=== PATIENT | male | born 1950 | race Caucasian/White ===

== ENCOUNTER 2021-05-04 06:05 | Inpatient (IN) ==
--- NOTE | 2021-02-26 14:01 | PAT Medication Instructions ---
Medication Instructions Date of Service February 26, 2021 Home Medications acetaminophen 325 mg tablet (Tylenol) 650 mg PO TID atorvastatin 40 mg tablet (Lipitor) 40 mg PO QAM cevimeline 30 mg capsule 1 cap PO QAM citalopram 10 mg tablet 10 mg PO QAM gabapentin 800 mg tablet 800 mg PO TID levothyroxine 100 mcg capsule 100 mcg PO QAM methadone 10 mg tablet 10 mg PO BID nortriptyline 10 mg capsule 10 mg PO HS pantoprazole 40 mg tablet,delayed release 40 mg PO QAM ASK your prescriber and surgeon methadone 10 mg tablet 10 mg PO BID DO NOT take the morning of surgery cevimeline 30 mg capsule 1 cap PO QAM Take morning of surgery With a small sip of water, OTHERWISE NOTHING TO EAT OR DRINK AFTER MIDNIGHT: acetaminophen 325 mg tablet (Tylenol) 650 mg PO TID (okay to take up to 4 hours prior to surgery if needed) atorvastatin 40 mg tablet (Lipitor) 40 mg PO QAM citalopram 10 mg tablet 10 mg PO QAM gabapentin 800 mg tablet 800 mg PO TID levothyroxine 100 mcg capsule 100 mcg PO QAM pantoprazole 40 mg tablet,delayed release 40 mg PO QAM Take evening before surgery acetaminophen 325 mg tablet (Tylenol) 650 mg PO TID gabapentin 800 mg tablet 800 mg PO TID nortriptyline 10 mg capsule 10 mg PO HS Other Notes If you have any questions please call us at [phone] or [phone] or [phone] or [phone]
--- NOTE | 2021-03-04 13:26 | Anesthesiology Consultation ---
Date of Service March 04, 2021 Assessment & Plan (1) Encounter for pre-operative examination: Chart Review Chart Review: Acceptable Risk for Surgery (pending surgeon ordered PCP and cardio clearance and preop Covid testing results ) and Patient seen in Pre Admission Testing -Pending surgeon ordered PCP clearance and cardio clearance - Check BSG AM DOS (due to hyperglycemia) Per PAT appt on 03/04/21, patient denies any recent travel or large group activities. No known Covid positive exposures or Covid related symptoms. No known Covid infection in the past 90 days. Pt is partially vaccinated for Covid. Preop Covid testing scheduled 03/22/21= will await results. Educated on importance of self quarantining, social distancing and wearing mask in public for the patient one week prior to surgery and after Covid testing done History Surgery Operation Date: 03/24/21 07:45 Proposed Procedures p C5 Corpectomy Spinal Cord Monitoring - Jun Allen, Height/Weight Height: 5 ft 8 in Weight: 59.1 kg Allergies Allergy/AdvReac Type Severity Reaction Status Date / Time No Known Allergies Allergy Unverified 02/25/21 14:42 Medications Home Medications Medication Instructions Recorded Confirmed Last Taken acetaminophen 325 mg tablet 650 mg PO TID 10/28/20 02/25/21 Unknown (Tylenol) atorvastatin 40 mg tablet (Lipitor) 40 mg PO QAM 10/28/20 02/25/21 Unknown cevimeline 30 mg capsule 1 cap PO QAM 10/28/20 02/25/21 Unknown citalopram 10 mg tablet 10 mg PO QAM 10/28/20 02/25/21 Unknown gabapentin 800 mg tablet 800 mg PO TID 10/28/20 02/25/21 Unknown levothyroxine 100 mcg capsule 100 mcg PO QAM 10/28/20 02/25/21 Unknown methadone 10 mg tablet 10 mg PO BID 10/28/20 02/25/21 Unknown nortriptyline 10 mg capsule 10 mg PO HS 10/28/20 02/25/21 Unknown pantoprazole 40 mg tablet,delayed 40 mg PO QAM 10/28/20 02/25/21 Unknown release Past Medical History Medical History (Updated 03/05/21 @ 13:04 by Victoria Waldrop PA-C) Chronic pain Depression Dyslipidemia GERD (gastroesophageal reflux disease) Well controlled and stable Heart disease [place]- approx 15 years ago, total of 4 stents over time- most recent stent [address] 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 Decker in [place] Exercise / Class Metabolic Activity II 4-5 Yardwork/Stairs/Walk up hill (one flight of stairs - no chest pain or SOB) Past Surgical History Surgical History H/O hand surgery "L hand traumatic injury repair around 1995" Hx of cardiac cath heart attack 15 years, total of [address] Chaney [place] Hx of colonoscopy Past Anesthesia History No Hx of Anesthesia Complications and No Family Hx of Anesthesia Complications (with exception to mother- had TKA - poor historian with specifics but states mother was slow to wake, vomiting - states mother is "highly allergic to anesthesia"- pt has no personal issues - denies FH of MH or pseudocholinesterase deficiency) History of PONV No Hx of PONV and No Hx of Motion Sickness Social History Smoking Status: Never smoker Do You Dip or Chew Tobacco: No Hx Alcohol Use: No Hx Substance Use: No substance use type: does not use Review of Systems Hx of snoring- no hx of sleep study Hx of blood transfusion - anemia with mouth cancer in 2016 Patient denies chest pain, shortness of breath, dyspnea on exertion, cough, wheezing, palpitations. No hx of seizures, stroke. No hx of blood clots or blood transfusions Physical Exam Vital Signs VITALS BP 136/92 P 99 TEMP 98.5 SP02 97% RESP 16 Constitutional no acute distress ENMT Mouth: no TMJ clicking Thyromental Distance: > or= 3.5 Finger Breadths (3.5) Mallampati Class: II Full upper denture Missing most of on bottom Neck + limited neck extension (moderate to severe ) Respiratory normal respiratory effort; no respiratory distress Auscultation: lungs clear to auscultation bilaterally; no wheezes Cardiovascular Rate/Rhythm: regular rate and regular rhythm Heart Sounds: no murmur Vessels: no carotid bruit Musculoskeletal Spine: + kyphosis; no pain with cervical ROM Extremities: extremities normal to inspection Psychiatric Orientation: alert Lab Results Anesthesia Preop Results Results Anesthesia Widget: WBC 12.25 K/uL (4.8-10.8) H 03/04/21 Hgb 11.7 g/dL (14.0-18.0) L 03/04/21 Hct 36.2 % (42-52) L 03/04/21 Plt 406 K/uL (130-400) H 03/04/21 Na 134 mmol/L (136-145) L 03/04/21 K 4.1 mmol/L (3.5-5.1) 03/04/21 Cl 97 mmol/L (98-107) L 03/04/21 CO2 29 mmol/L (21-32) 03/04/21 BUN 8 mg/dl (6-23) 03/04/21 Creat 0.76 mg/dl (0.6-1.4) 03/04/21 Glucose Level 226 mg/dl (70-99(Fasting)) H 03/04/21 PT 10.8 Seconds (9.0-12.0) 03/04/21 PTT 28.8 Seconds (21.0-31.0) 03/04/21 INR 1.1 (0.9-1.1) 03/04/21 HA1c 5.0 % (4.5-5.6) 03/04/21 Blood Type O Positive 03/04/21 Antibody Screen NEGATIVE 03/04/21 Lab Comments: Surgeon's office informed of mild leukocytosis and anemia Anemia stable and mildly improved from 10/2020 Surgeon's office informed of elevated sugar - will send labs results to PCP for continuity of care Testing Electrocardiogram Date: 11/16/20 SR at 82bpm. No acute changes of ischemia. Chest X-Ray Date: 03/04/21 Findings: + NAD FINDINGS: PA and lateral chest radiographs are compared to study dated 11/04/2020. The cardiomediastinal silhouette is unremarkable noting atherosclerotic calcification of the thoracic aorta. A coronary artery stent is noted. Chronic interstitial thickening is similar to previous. There is mild bibasilar scarring/atelectasis. The lungs and pleural spaces are otherwise clear. There is no pneumothorax. The skeletal structures are osteopenic. There is chronic posttraumatic deformity of the sternum. Thoracic compression deformities are unchanged. There is hyperkyphosis of the thoracic spine. A linear metallic foreign body is again seen below the left hemidiaphragm.
[~2021-05-04 06:05] MED LIST: ACETAMINOPHEN 500 MG TAB PO SCH; CeleBREX 200 MG CAP PO SCH; GABAPENTIN 300 MG CAP PO SCH; LR 15ML/HR IV SCH; ceFAZolin 1000MG 1,000 MG/7.5 ML SYR IV SCH
[2021-05-04] MEDS ORDERED: fentaNYL citrate 100 MCG/2 ML VIAL ONE ×2 (06:52→08:37)
[2021-05-04] MEDS ORDERED: MIDAZOLAM HCL 1 MG/ML 2ML VIAL ONE (06:52)
[2021-05-04] MEDS ORDERED: PROPOFOL IV EMULSION 10 MG/ML 20 ML VIAL IV ONE (07:00)
[2021-05-04] MEDS ORDERED: LIDOCAINE 2% 2 ML VIAL/AMP(20MG/ML) INFIL ONE (07:00)
[2021-05-04] MEDS ORDERED: SUCCINYLCHOLINE 100MG/5ML SYR IV ONE (07:00)
[2021-05-04] MEDS ORDERED: ROCURONIUM BROMIDE 10 MG/ML 5 ML VIAL IV ONE (07:01)
[2021-05-04] MEDS ORDERED: DEXAMETHASONE SOD INJ 4 MG/ML VIAL ONE (07:01)
[2021-05-04] MEDS ORDERED: ONDANSETRON INJ 2 MG/ML 2 ML VIAL ONE (07:01)
[2021-05-04 07:03] LABS: Basophils # (auto) 0.09 K/uL (0-0.2); Basophils % (auto) 0.8 %; Eosinophils # (auto) 0.11 K/uL (0-0.5); Hematocrit (blood only) 33.1 % (42-52); Hemoglobin 10.8 g/dL (14.0-18.0); Immature Granulocytes # (auto) 0.19 K/uL (0.00-0.02); Immature Granulocytes % (auto) 1.7 %; Lymphocytes # (auto) 1.23 K/uL (1.2-3.4); Lymphocytes % (auto) 11.1 %; Mean Corpuscular Volume 104.1 fL (80-100); Mean Platelet Volume 9.5 fL (7.4-10.4); Neutrophils # (auto) 8.47 K/uL (1.4-6.5); Neutrophils % (auto) 76.4 %; Platelet Count 540 K/uL (130-400); RDW Coefficient of Variation 18.3 % (11.5-14.5); Red Blood Count 3.18 M/uL (4.7-6.1); White Blood Count 11.09 K/uL (4.8-10.8)
[2021-05-04] MEDS ORDERED: ceFAZolin 330 MG/ML 1 GM VIAL ONE (07:06)
[2021-05-04 07:13] LABS: Mean Corpuscular Hgb Conc 32.6 g/dL (32-36)
[2021-05-04 07:21] LABS: BUN Creatinine Ratio 8.4 (10-20); Calcium 8.7 mg/dl (8.5-10.1); Creatinine Clr Calc Pharmacy 45.3 ml/min; Est GFR (African American) 70.8 ml/min; Est GFR (Non-African American) 61.1 ml/min; Potassium 4.4 mmol/L (3.5-5.1)
--- NOTE | 2021-05-04 07:35 | History & Physical Bridge Note ---
Date of Service May 04, 2021 History & Physical Bridge Note I have examined the patient, reviewed the History & Physical and in the interval since the performance of the History & Physical I have noted the following changes of clinical significance: no changes noted
--- NOTE | 2021-05-04 07:36 | History & Physical Report ---
Date of Service May 04, 2021 Assessment & Plan (1) Myelopathy concurrent with and due to spinal stenosis of cervical region: Plan: C5 corpectomy History of Present Illness Chief Complaint: Neck and bilateral arm pain Primary Care Provider: Los Sheehan This is a 70-year-old male who presents with worsening neck and arm symptoms after failed course of nonoperative care is here for surgical invention. Allergies Allergy/AdvReac Type Severity Reaction Status Date / Time No Known Allergies Allergy Verified 05/04/21 06:28 Home Medications Medication Instructions Recorded Confirmed Type acetaminophen 325 mg tablet 650 mg PO TID 10/28/20 05/04/21 History (Tylenol) atorvastatin 40 mg tablet (Lipitor) 40 mg PO QAM 10/28/20 05/04/21 History cevimeline 30 mg capsule (Evoxac) 1 cap PO QAM 10/28/20 05/04/21 History citalopram 10 mg tablet (Celexa) 10 mg PO QAM 10/28/20 05/04/21 History gabapentin 800 mg tablet 800 mg PO TID 10/28/20 05/04/21 History levothyroxine 100 mcg capsule 100 mcg PO QAM 10/28/20 05/04/21 History methadone 10 mg tablet 10 mg PO BID 10/28/20 05/04/21 History nortriptyline 10 mg capsule 10 mg PO HS 10/28/20 05/04/21 History (Pamelor) pantoprazole 40 mg tablet,delayed 40 mg PO QAM 10/28/20 05/04/21 History release (Protonix) Past Med/Surg History Medical History (Updated 05/04/21 @ 07:36 by Jun Allen DO) Anemia CAD (coronary artery disease) 2010- [facility] showed patent LAD and LCX stents, mild RCA disease per cardio records [place]- approx 15 years ago, total of 4 stents over time- most recent stent [address] 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 Decker in [place] Surgical History H/O hand surgery "L hand traumatic injury repair around 1995" Hx of cardiac cath heart attack 15 years, total of [address] 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
[2021-05-04] MEDS ORDERED: ePHEDrine sulfate 50 MG/ML AMP IV PRN (08:11)
[2021-05-04] MEDS ORDERED: ATROPINE SULFATE 0.1 MG/ML 10ML SYR IV PRN (08:11)
[2021-05-04] MEDS ORDERED: ONDANSETRON INJ 2 MG/ML 2 ML VIAL IV PRN ×2 (08:11→12:06)
[2021-05-04] MEDS ORDERED: ePHEDrine sulfate 50 MG/ML SYR ONE (08:17)
[2021-05-04] MEDS ORDERED: NEOSTIGMINE METHYLSULFATE 1 MG/ML 10ML VIAL ONE (08:37)
[2021-05-04] MEDS ORDERED: GLYCOPYRROLATE 0.2 MG/ML VIAL ONE (08:37)
--- NOTE | 2021-05-04 09:11 | Operative Report ---
Post Operative Report Pre & Post Diagnosis Operation Date: 04/08/21 07:45 <No data on this case meets the specified criteria> Operation Date: 05/04/21 07:45 Pre-Op Diagnosis: Myelopathy concurrent with and due to spinal stenosis of cervical region Post-Op Diagnosis: Myelopathy concurrent with and due to spinal stenosis of cervical region I identified the patient and participated in the time-out.: Yes Procedure Operation Date: 04/08/21 07:45 <No data on this case meets the specified criteria> Operation Date: 05/04/21 07:45 Actual Procedures #1 anterior cervical discectomy with bilateral foraminotomies C4-C5. #2 anterior cervical arthrodesis C4-C5. #3 placement of Spira 6 mm cage filled I factor C4-C5. #4 application of mendoza plate and screws across C4-C5. Surgeon Jun Allen, Pulmonology Technician Donna Ho Estimated Blood Loss 10 Findings Consistent with Post-Op Diagnosis Specimens None Indications This is a 70-year-old male who presents with cervical myeloradiculopathy. Failing course of nonoperative care is here for surgical invention. Description of Procedure Patient was met with identified informed consent obtained. Patient was then taken to the operative suite underwent a patient placed in supine position injectable head Alexandra joseph. All bony prominences well-padded eyes inspected to ensure no external pressure placed upon the. This point the anterior cervical spine was prepped and draped in a sterile fashion. The assistance of fluoroscopy identified the C5 vertebral body and a transverse incision was placed along the right anterior aspect of the cervical spine overlying his region. Blunt dissection was carried out down to and exposing anterior cervical spine from C3-4 to see 6. Of note to the angle to obtain adequate and safe approach to the C5-6 disc was severe. Patient is anatomy is such that his clavicle would interrupt a direct approach to this level. Subsequently elected to not address the C5-6 disc space. It demonstrates evidence of stability and autofusion on film. Subsequently I addressed only the C4-5 disc space. A complete discectomy was performed out to the uncovertebral's bilaterally. [place] distractor pins were used to assist in visualization. Removed all posterior fibers longitudinal ligament bilateral foraminotomies performed. The endplates were then burred to subcortically bone and 6 mm spiral cage filled with I factor tapped in position. Distracting apparatus was removed and a 5 complete and screws applied with the assistance of fluoroscopy. The incision was then copiously irrigated explored to ensure no damage to surrounding structures remaining bleeding. 10 round LUZ drain inserted. The incision was then closed with 2 Vicryl in a fashion of 4 Monocryl for final skin closure. Steri-Strips dressings placed. Patient will continue PACU stable condition. Please note spinal cord monitoring visualized at the procedure no changes noted. Lastly Donna Ho was present out the entire surgery involved in patient positioning complex portions of the surgery and final skin closure. I attest to the content of the Intraoperative Record and any orders documented therein. Any exceptions are noted below.
[2021-05-04] MEDS ORDERED: FLOSEAL HEMOSTATIC MATRIX 10ML TOP ONE (09:13)
[2021-05-04] MEDS: fentaNYL citrate 100 MCG/2 ML VIAL IV PRN ×4 (09:48→10:10)
[2021-05-04] MEDS: HYDROmorphone INJ 1 MG/ML SYRINGE IV PRN ×5 (10:15→11:47)
--- NOTE | 2021-05-04 10:31 | Fluoroscopy Report ---
INTRAOPERATIVE RADIOGRAPHS CLINICAL HISTORY: Spinal fusion. Fluoroscopy time: 17 seconds. FINDINGS: 3 spot fluoroscopic views of the cervical spine are presented. There is evidence of anterio r fusion of the lower cervical spine. The levels are difficult to localize on the provided images. Th ere has reportedly been corpectomy at C5, and there is likely anterior fusion at C4-C6. The orthopedi c hardware appears intact. An endotracheal tube is in place. IMPRESSION: Intraoperative images from anterior fusion of the lower cervical spine as above. Electronically signed by: Drake Eid M.D. 05/04/2021 10:29 AM
--- NOTE | 2021-05-04 11:11 | Anesthesiology Progress Note ---
Date of Service May 04, 2021 Anesthesia Post Procedure Vital Signs Vital Signs: Temp Pulse Pulse Resp BP Pulse Ox 05/04/21 11:00 36.4 C L 87 18 131/78 97 05/04/21 10:50 86 16 131/85 98 05/04/21 10:40 88 18 128/87 98 05/04/21 10:30 89 16 140/87 98 05/04/21 10:20 87 16 149/95 H 99 05/04/21 10:10 90 16 163/98 H 94 05/04/21 10:00 88 16 158/97 H 95 05/04/21 09:50 90 20 144/101 H 95 05/04/21 09:40 88 16 164/87 H 100 05/04/21 09:30 89 16 163/95 H 100 05/04/21 09:24 36.2 C L 84 24 156/86 H 100 05/04/21 06:36 36.7 C 84 20 140/89 95 Pain Intensity Lower Back: Pain Intensity: 3 Neck: Pain Intensity: 4 Transfer of Care Handoff Completed per policy Notes Mental Status: alert / awake / arousable and participated in evaluation Patient Amnestic to Procedure: Yes Nausea / Vomiting: adequately controlled Pain: adequately controlled Airway Patency, RR, SpO2: stable & adequate BP & HR: stable & adequate Hydration State: stable & adequate Anesthetic Complications: no major complications apparent and Pt Satisfied with anesthetic care
[2021-05-04] MEDS ORDERED: oxyCODONE HCL IR 5 MG TAB (IMMEDIATE RELEASE) PO PRN (12:06)
[2021-05-04] MEDS ORDERED: NALOXONE HCL 0.4 MG/1 ML VIAL/CARP IV PRN (12:06)
[2021-05-04] MEDS ORDERED: diphenhydrAMINE Capsule 25 MG CAP PO PRN (12:06)
[2021-05-04] MEDS ORDERED: METOCLOPRAMIDE HCL INJ 5 MG/ML 2 ML VIAL IV PRN (12:06)
[2021-05-04] MEDS ORDERED: FAMOTIDINE 20 MG TAB PO PRN (12:06)
[2021-05-04] MEDS ORDERED: LORazepam 2 MG/1 ML VIAL IV PRN (12:06)
[2021-05-04] MEDS ORDERED: ONDANSETRON 4 MG OD TAB PO PRN (12:06)
[2021-05-04] MEDS ORDERED: SOD PHOSPHATE/SOD BIPHOSPHATE ENEMA 132 ML BTL PR PRN (12:06)
[2021-05-04] MEDS ORDERED: MAGNESIUM HYDROXIDE SUSP 30 ML UDC PO PRN (12:06)
[2021-05-04] MEDS ORDERED: dexAMETHasone 8 MG in SYRINGE 0 ML IV PRN (12:06)
[2021-05-04] MEDS ORDERED: LORazepam 0.5 MG TAB PO PRN (12:06)
[2021-05-04] MEDS ORDERED: PROMETHAZINE HCL 12.5 MG in SODIUM CHLORIDE 0.9% 50 ML IV PRN (12:06)
[2021-05-04] MEDS ORDERED: ACETAMINOPHEN 500 MG TAB PO PRN (12:06)
[2021-05-04] MEDS ORDERED: hydrOXYzine HCl 25 MG TAB PO PRN (12:06)
[2021-05-04] MEDS ORDERED: ALUMINUM/MAGNESIUM SUSP 30 ML UDC PO PRN (12:06)
[2021-05-04] MEDS ORDERED: bisacodyL 10 MG SUPP PR PRN (12:06)
[2021-05-04] MEDS ORDERED: ACETAMINOPHEN 1,000 MG/100 ML VIAL IV PRN (12:06)
[2021-05-04] MEDS ORDERED: HYDROmorphone INJ 0.5 MG/0.5 ML SYR IV PRN (12:06)
[2021-05-04] MEDS ORDERED: traMADol HCL 50 MG TABLET PO PRN (12:06)
[2021-05-04] MEDS ORDERED: HYDROmorphone INJ 1 MG/ML SYRINGE IV PRN (12:06)
[2021-05-04] MEDS ORDERED: DO NOT ADMINISTER PNEUMOCOCCAL VACCINE PRN (12:06)
[2021-05-04] MEDS ORDERED: RACEPINEPHRINE 2.25% NEBU SOLN 0.5 ML VIAL INH PRN (12:06)
[2021-05-04] MEDS ORDERED: DO NOT ADMINISTER FLU VACCINE PRN (12:06)
[2021-05-04] MEDS: GABAPENTIN 800 MG TAB PO SCH ×2 (13:34→20:39)
[2021-05-04] MEDS: LACTATED RINGER'S 1,000 ML IV SCH (16:32)
[2021-05-04] MEDS: ceFAZolin 1000MG 1,000 MG/7.5 ML SYR IV SCH (16:33)
[2021-05-04] MEDS: dexAMETHasone 6 MG in SYRINGE 0 ML IV SCH (16:33)
--- NOTE | 2021-05-04 16:54 | History & Physical Report ---
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 Allen. He tolerated the procedure well and denies any incisional discomfort or radicular symptoms. Postoperatively he is feeling good and sitting edge of bed. He denies any fever, chills, sweats, lightheadedness, dizziness, chest pain, shortness of breath, nausea, vomiting, abdominal pain. He denies any difficulty swallowing. He is urinating without difficulty. Patient follows with PCP Dr. Sheehan in [place], [place]. He recently followed up 2 weeks ago for preop evaluation. He states he did not make him aware of the 50 pound weight loss. He states he was at 170 pounds and now is in the 120s. He has a prior history of smoking for 55 years, and quit in 2016. Patient has history of CAD remotely with stent placement. He denies any chest pain or shortness of breath. Allergies Allergy/AdvReac Type Severity Reaction Status Date / Time No Known Allergies Allergy Verified 05/04/21 06:28 Home Medications Medication Instructions Recorded Confirmed Type acetaminophen 325 mg tablet 650 mg PO TID 10/28/20 05/04/21 History (Tylenol) atorvastatin 40 mg tablet (Lipitor) 40 mg PO QAM 10/28/20 05/04/21 History cevimeline 30 mg capsule (Evoxac) 1 cap PO QAM 10/28/20 05/04/21 History citalopram 10 mg tablet (Celexa) 10 mg PO QAM 10/28/20 05/04/21 History gabapentin 800 mg tablet 800 mg PO TID 10/28/20 05/04/21 History levothyroxine 100 mcg capsule 100 mcg PO QAM 10/28/20 05/04/21 History methadone 10 mg tablet 10 mg PO BID 10/28/20 05/04/21 History nortriptyline 10 mg capsule 10 mg PO HS 10/28/20 05/04/21 History (Pamelor) pantoprazole 40 mg tablet,delayed 40 mg PO QAM 10/28/20 05/04/21 History release (Protonix) Past Med/Surg History Medical History Anemia CAD (coronary artery disease) 2010- [facility] showed patent LAD and LCX stents, mild RCA disease per cardio records [place]- approx 15 years ago, total of 4 stents over time- most recent stent [address] 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 Ch[place] in [place] Hx of colonoscopy Family History (Updated 05/04/21 @ 16:35 by Cristal Kilpatrick PA-C) Mother Hypothyroidism Father Heart disease Social History Smoking Status: Former smoker Smoking End Date: 2015; Second Hand Exposure: No; Do You Dip or Chew Tobacco: No; Hx Alcohol Use: No (HX ALCOHOL USE - QUIT 2015) Hx Substance Use: No Preferred Language: Mongolian Communication Ability: Effective Client Services Representative Required: No Beliefs That Will Affect Care: None Current Living Situation: Alone Other Information That Helps Us Care for You: Yes (WANTS TO GO TO REHAB FOR A COUPLE WEEKS AFTER SURGERY, LIVES ALONE) Feels Safe at Home: Yes Safety Concerns: Feels Safe At This Time Assistive Devices: Cane and Glasses Review of Systems Review of Systems: All systems reviewed & are unremarkable except as noted in HPI & below Physical Exam Physical Exam: Constitutional: Frail, elderly, male, sitting at bedside, vitals as above, NAD, pleasant, conversing easily Head: Normocephalic, Atraumatic Eyes: PERRL, conjunctivae normal, anicteric sclerae ENMT: external ear and nose normal, oropharynx normal Neck: Cervical dressing in place, LUZ drain with minimal serosanguineous output, normal visual inspection Respiratory: normal respiratory effort, lungs clear to auscultation, no wheeze, rales, rhonchi. Normal insp/exp effort, no accessory muscle use Cardiovascular: RRR, no murmur, no edema Vessels: no JVD or carotid bruit Chest: Barrel chested Abdomen: normal bowel sounds, soft, nontender, no hepatosplenomegaly Musculoskeletal: no cyanosis or clubbing, extremities motor strength 5/5 Skin: no rashes, warm and dry normal turgor Neurologic: PERRL, EOMI, accommodation nl, no face palsy, no dysarthria CN's II-XI intact bilaterally and moves all extremities Psychiatric: A+Ox3, euthymic affect : deferred Results & Data Results & Data ([facility]) Vital Signs (Past 12 Hours) Vital Signs Temp Pulse Pulse Pulse Pulse Resp BP 05/04/21 16:25 36.7 C 87 16 164/65 H 05/04/21 16:00 83 16 05/04/21 15:55 36.4 C L 82 16 135/87 05/04/21 15:25 36.7 C 81 16 115/67 05/04/21 14:30 83 20 135/91 05/04/21 14:00 89 20 116/71 05/04/21 13:30 89 18 121/65 05/04/21 13:00 100 H 12 143/86 H 05/04/21 12:30 84 24 136/86 05/04/21 12:00 95 H 16 122/68 05/04/21 11:45 90 14 136/85 05/04/21 11:30 89 16 131/87 05/04/21 11:15 89 16 129/81 05/04/21 11:00 36.4 C L 87 18 131/78 05/04/21 10:50 86 16 131/85 05/04/21 10:40 88 18 128/87 05/04/21 10:30 89 16 140/87 05/04/21 10:20 87 16 149/95 H 05/04/21 10:10 90 16 163/98 H 05/04/21 10:00 88 16 158/97 H 05/04/21 09:50 90 20 144/101 H 05/04/21 09:40 88 16 164/87 H 05/04/21 09:30 89 16 163/95 H 05/04/21 09:24 36.2 C L 84 24 156/86 H 05/04/21 06:36 36.7 C 84 20 140/89 Pulse Ox 05/04/21 16:25 98 05/04/21 16:00 97 05/04/21 15:55 96 05/04/21 15:25 95 05/04/21 14:30 94 05/04/21 14:00 98 05/04/21 13:30 99 05/04/21 13:00 98 05/04/21 12:30 97 05/04/21 12:00 97 05/04/21 11:45 98 05/04/21 11:30 97 05/04/21 11:15 96 05/04/21 11:00 97 05/04/21 10:50 98 05/04/21 10:40 98 05/04/21 10:30 98 05/04/21 10:20 99 05/04/21 10:10 94 05/04/21 10:00 95 05/04/21 09:50 95 05/04/21 09:40 100 05/04/21 09:30 100 05/04/21 09:24 100 05/04/21 06:36 95 Laboratory Results 05/04/21 05/04/21 05/04/21 Range/Units Unknown 06:33 06:33 WBC 11.09 H (4.8-10.8) K/uL RBC 3.18 L (4.7-6.1) M/uL Hgb 10.8 L (14.0-18.0) g/dL Hct 33.1 L (42-52) % MCV 104.1 H (80-100) fL MCH 34.0 (25-34) pg MCHC 32.6 (32-36) g/dL RDW Std Deviation 69.0 H (36.4-46.3) fL RDW Coeff of Kaya 18.3 H (11.5-14.5) % Plt Count 540 H (130-400) K/uL MPV 9.5 (7.4-10.4) fL Immature Gran % (Auto) 1.7 % Neut % (Auto) 76.4 % Lymph % (Auto) 11.1 % Hoke % (Auto) 9.0 % Eos % (Auto) 1.0 % Baso % (Auto) 0.8 % Neut # (Auto) 8.47 H (1.4-6.5) K/uL Lymph # (Auto) 1.23 (1.2-3.4) K/uL Hoke # (Auto) 1.00 H (0.11-0.59) K/uL Eos # (Auto) 0.11 (0-0.5) K/uL Baso # (Auto) 0.09 (0-0.2) K/uL Immature Gran # (Auto) 0.19 H (0.00-0.02) K/uL Sodium 134 L (136-145) mmol/L Potassium 4.4 (3.5-5.1) mmol/L Chloride 100 (98-107) mmol/L Carbon Dioxide 28 (21-32) mmol/L Anion Gap 6 (3-11) BUN 10 (6-23) mg/dl Creatinine 1.19 (0.6-1.4) mg/dl Est Cr Clr Drug Dosing 45.3 ml/min Est GFR ( Amer) 70.8 ml/min Est GFR (Non-Af Amer) 61.1 ml/min BUN/Creatinine Ratio 8.4 L (10-20) Glucose 79 (70-99(Fasting)) mg/dl POC Glucose (70-99) mg/dl Calcium 8.7 (8.5-10.1) mg/dl SARS-CoV-2, RNA, NAAT NEGATIVE (NEGATIVE) Blood Type Antibody Screen 05/04/21 05/04/21 Range/Units 06:33 06:25 WBC (4.8-10.8) K/uL RBC (4.7-6.1) M/uL Hgb (14.0-18.0) g/dL Hct (42-52) % MCV (80-100) fL MCH (25-34) pg MCHC (32-36) g/dL RDW Std Deviation (36.4-46.3) fL RDW Coeff of Kaya (11.5-14.5) % Plt Count (130-400) K/uL MPV (7.4-10.4) fL Immature Gran % (Auto) % Neut % (Auto) % Lymph % (Auto) % Hoke % (Auto) % Eos % (Auto) % Baso % (Auto) % Neut # (Auto) (1.4-6.5) K/uL Lymph # (Auto) (1.2-3.4) K/uL Hoke # (Auto) (0.11-0.59) K/uL Eos # (Auto) (0-0.5) K/uL Baso # (Auto) (0-0.2) K/uL Immature Gran # (Auto) (0.00-0.02) K/uL Sodium (136-145) mmol/L Potassium (3.5-5.1) mmol/L Chloride (98-107) mmol/L Carbon Dioxide (21-32) mmol/L Anion Gap (3-11) BUN (6-23) mg/dl Creatinine (0.6-1.4) mg/dl Est Cr Clr Drug Dosing ml/min Est GFR ( Amer) ml/min Est GFR (Non-Af Amer) ml/min BUN/Creatinine Ratio (10-20) Glucose (70-99(Fasting)) mg/dl POC Glucose 90 (70-99) mg/dl Calcium (8.5-10.1) mg/dl SARS-CoV-2, RNA, NAAT (NEGATIVE) Blood Type O Positive Antibody Screen NEGATIVE Diagnostic Findings Cervical Spine X-Ray 05/04/21 07:45 INTRAOPERATIVE RADIOGRAPHS CLINICAL HISTORY: Spinal fusion. Fluoroscopy time: 17 seconds. FINDINGS: 3 spot fluoroscopic views of the cervical spine are presented. There is evidence of anterior fusion of the lower cervical spine. The levels are difficult to localize on the provided images. There has reportedly been corpectomy at C5, and there is likely anterior fusion at C4-C6. The orthopedic h ardware appears intact. An endotracheal tube is in place. IMPRESSION: Intraoperative images from anterior fusion of the lower cervical spine as above. Electronically signed by: Drake Eid M.D. 05/04/2021 10:29 AM Medications Administered Medication List Acetaminophen (Acetaminophen 500 Mg Tab) 1,000 mg PO PREOP JUAN Stop: 05/04/21 18:00 Last Admin: 05/04/21 06:35 Dose: Not Given Documented by: [id number] Celecoxib (Celebrex 200 Mg Cap) 200 mg PO PREOP JUAN Stop: 05/04/21 18:00 Last Admin: 05/04/21 07:00 Dose: 200 mg Documented by: [id number] Gabapentin (Gabapentin 300 Mg Cap) 300 mg PO PREOP JUAN Stop: 05/04/21 18:00 Last Admin: 05/04/21 06:35 Dose: Not Given Documented by: [id number] Gabapentin (Gabapentin 800 Mg Tab) 800 mg PO TID JUAN Stop: 06/03/21 13:59 Last Admin: 05/04/21 13:34 Dose: 800 mg Documented by: [id number] Hydromorphone HCl (Hydromorphone Inj 1 Mg/Ml Syringe) 1 mg IV Q3H PRN PRN Reason: severe pain (scale 7-10) Stop: 05/18/21 12:05 Last Admin: 05/04/21 14:22 Dose: 1 mg Documented by: [id number] Lactated Ringer's (Lr) 1,000 mls @ 15 mls/hr IV .Q24H JUAN Stop: 05/05/21 05:59 Last Infusion: 05/04/21 07:50 Dose: 0 mls/hr Documented by: [id number] Admin: 05/04/21 06:55 Dose: 15 mls/hr Documented by: [id number] Cefazolin Sodium (Ancef 1000mg) 1,000 mg in 7.5 mls @ 2.5 mls/min IV PREOP JUAN; Protocol Stop: 05/04/21 18:00 Last Admin: 05/04/21 07:50 Dose: 2.5 mls/min Documented by: [id number] Lactated Ringer's (Lr) 1,000 mls @ 75 mls/hr IV .[id number] JUAN Stop: 06/03/21 12:05 Last Admin: 05/04/21 16:32 Dose: 75 mls/hr Documented by: [id number] Cefazolin Sodium (Ancef 1000mg) 1,000 mg in 7.5 mls @ 2.5 mls/min IV Q8H JUAN; Protocol Stop: 05/05/21 00:02 Last Admin: 05/04/21 16:33 Dose: 2.5 mls/min Documented by: [id number] Dexamethasone 6 mg/ Syringe 1.5 mls @ 1 mls/min IV Q8H JUAN Stop: 05/05/21 08:02 Last Admin: 05/04/21 16:33 Dose: 1 mls/min Documented by: [id number] Discontinued Medications Cefazolin Sodium (Cefazolin 330 Mg/Ml 1 Gm Vial) Confirm Administered Dose 990 mg .ROUTE .STK-MED ONE Stop: 05/04/21 07:07 Last Admin: 05/04/21 09:26 Dose: 990 mg Documented by: [id number] Fentanyl Citrate (Fentanyl Citrate 100 Mcg/2 Ml Vial) 25 mcg IV Q5M PRN PRN Reason: PACU Use Only-Pain Stop: 05/04/21 16:11 Last Admin: 05/04/21 10:10 Dose: 25 mcg Documented by: [id number] Admin: 05/04/21 09:59 Dose: 25 mcg Documented by: [id number] Admin: 05/04/21 09:54 Dose: 25 mcg Documented by: [id number] Admin: 05/04/21 09:48 Dose: 25 mcg Documented by: [id number] Hydromorphone HCl (Hydromorphone Inj 1 Mg/Ml Syringe) 0.25 mg IV Q5M PRN PRN Reason: PACU Use Only-Pain Stop: 05/04/21 16:11 Last Admin: 05/04/21 11:47 Dose: 0.25 mg Documented by: [id number] Admin: 05/04/21 10:35 Dose: 0.25 mg Documented by: [id number] Admin: 05/04/21 10:25 Dose: 0.25 mg Documented by: [id number] Admin: 05/04/21 10:20 Dose: 0.25 mg Documented by: [id number] Admin: 05/04/21 10:15 Dose: 0.25 mg Documented by: [id number] Miscellaneous ( Floseal Hemostatic Matrix 10ml) 10 ml TOP ONCE ONE Stop: 05/04/21 09:14 Last Admin: 05/04/21 09:14 Dose: 10 ml Documented by: [id number] Code Status & VTE Plan Code Status FULL CODE VTE Prophylaxis Plan VTE Prophylaxis will be ordered: Yes
--- NOTE | 2021-05-04 17:06 | Consultation ---
Date of Consultation May 04, 2021 Assessment & Plan (1) Myelopathy concurrent with and due to spinal stenosis of cervical region: (2) Heart disease: Myelopathy secondary to cervical spine stenosis Status post ACDF C4-C5 by Dr. 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 Sheehan in [place] FULL CODE Pt was seen and examined in collaboration with Dr. Mesa, please see addendum Thank you for this consultation. We will follow the patient with you during their hospital stay. You can reach a member of the [facility] Hospitalist Team 05/09 via hospitalist role on tiger text. Supervising Physician Co-Signing Physician Notes I have seen and examined the patient and have discussed the case with the provider above. I agree with the assessment and plan as stated. 70 yo M s/p cervical spine surgery today. Recovering well without nausea, and he is tolerating food here. He reports eating more than he typically does at home. He will follow-up with his PCP regarding recent weight loss. Physical exam with drain in anterior neck, lungs clear to ausculation and normal cardiac exam. Cont current medical therapy. DO Moshe History of Present Illness Requesting Physician: DR. Allen Reason for Consultation: Postop medical management Attending Physician: Jun Allen DO History of Present Illness This is a 70-year-old male who has significant past medical history of CAD, history of mouth cancer status post chemo and radiation, chronic pain, HTN, HLD, hypothyroidism, recent weight loss of 50 pounds in 3 months who presents for elective cervical procedure by Dr. Allen. He tolerated the procedure well and denies any incisional discomfort or radicular symptoms. Postoperatively he is feeling good and sitting edge of bed. He denies any fever, chills, sweats, lightheadedness, dizziness, chest pain, shortness of breath, nausea, vomiting, abdominal pain. He denies any difficulty swallowing. He is urinating without difficulty. Patient follows with PCP Dr. Sheehan in [place]. He recently followed up 2 weeks ago for preop evaluation. He states he did not make him aware of the 50 pound weight loss. He states he was at 170 pounds and now is in the 120s. He has a prior history of smoking for 55 years, and quit in 2016. Patient has history of CAD remotely with stent placement. He denies any chest pain or shortness of breath. Allergies Allergy/AdvReac Type Severity Reaction Status Date / Time No Known Allergies Allergy Verified 05/04/21 06:28 Home Medications Medication Instructions Recorded Confirmed Type acetaminophen 325 mg tablet 650 mg PO TID 10/28/20 05/04/21 History (Tylenol) atorvastatin 40 mg tablet (Lipitor) 40 mg PO QAM 10/28/20 05/04/21 History cevimeline 30 mg capsule (Evoxac) 1 cap PO QAM 10/28/20 05/04/21 History citalopram 10 mg tablet (Celexa) 10 mg PO QAM 10/28/20 05/04/21 History gabapentin 800 mg tablet 800 mg PO TID 10/28/20 05/04/21 History levothyroxine 100 mcg capsule 100 mcg PO QAM 10/28/20 05/04/21 History methadone 10 mg tablet 10 mg PO BID 10/28/20 05/04/21 History nortriptyline 10 mg capsule 10 mg PO HS 10/28/20 05/04/21 History (Pamelor) pantoprazole 40 mg tablet,delayed 40 mg PO QAM 10/28/20 05/04/21 History release (Protonix) aspirin 81 mg tablet,delayed 81 mg PO DAILY 05/04/21 05/04/21 History release Patient History Medical History Anemia CAD (coronary artery disease) 2010- [facility] showed patent LAD and LCX stents, mild RCA disease per cardio records [place]- approx 15 years ago, total of 4 stents over time- most recent stent [address] 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 Decker in [place] Surgical History H/O hand surgery "L hand traumatic injury repair around 1995" Hx of cardiac cath heart attack 15 years, total of [address] Chaney in [place] Hx of colonoscopy Family History (Updated 05/04/21 @ 16:35 by Cristal Kilpatrick PA-C) Mother Hypothyroidism Father Heart disease Social History Smoking Status: Former smoker Smoking End Date: 2015; Second Hand Exposure: No; Do You Dip or Chew Tobacco: No; Hx Alcohol Use: No (HX ALCOHOL USE - QUIT 2015) Hx Substance Use: No Preferred Language: Tajik Communication Ability: Effective Toll Patrolman Required: No Beliefs That Will Affect Care: None Current Living Situation: Alone Other Information That Helps Us Care for You: Yes (WANTS TO GO TO REHAB FOR A COUPLE WEEKS AFTER SURGERY, LIVES ALONE) Feels Safe at Home: Yes Safety Concerns: Feels Safe At This Time Assistive Devices: Cane and Glasses Review of Systems Review of Systems: All systems reviewed & are unremarkable except as noted in HPI & below Physical Exam Physical Exam: Constitutional: Frail, elderly, male, sitting at bedside, vitals as above, NAD, pleasant, conversing easily Head: Normocephalic, Atraumatic Eyes: PERRL, conjunctivae normal, anicteric sclerae ENMT: external ear and nose normal, oropharynx normal Neck: Cervical dressing in place, LUZ drain with minimal serosanguineous output, normal visual inspection Respiratory: normal respiratory effort, lungs clear to auscultation, no wheeze, rales, rhonchi. Normal insp/exp effort, no accessory muscle use Cardiovascular: RRR, no murmur, no edema Vessels: no JVD or carotid bruit Chest: Barrel chested Abdomen: normal bowel sounds, soft, nontender, no hepatosplenomegaly Musculoskeletal: no cyanosis or clubbing, extremities motor strength 5/5 Skin: no rashes, warm and dry normal turgor Neurologic: PERRL, EOMI, accommodation nl, no face palsy, no dysarthria CN's II-XI intact bilaterally and moves all extremities Psychiatric: A+Ox3, euthymic affect : deferred Results & Data ([facility]) Vital Signs (Past 12 Hours) Vital Signs Temp Pulse Pulse Pulse Pulse Resp BP 05/04/21 16:25 36.7 C 87 16 164/65 H 05/04/21 16:00 83 16 05/04/21 15:55 36.4 C L 82 16 135/87 05/04/21 15:25 36.7 C 81 16 115/67 05/04/21 14:30 83 20 135/91 05/04/21 14:00 89 20 116/71 05/04/21 13:30 89 18 121/65 05/04/21 13:00 100 H 12 143/86 H 05/04/21 12:30 84 24 136/86 05/04/21 12:00 95 H 16 122/68 05/04/21 11:45 90 14 136/85 05/04/21 11:30 89 16 131/87 05/04/21 11:15 89 16 129/81 05/04/21 11:00 36.4 C L 87 18 131/78 05/04/21 10:50 86 16 131/85 05/04/21 10:40 88 18 128/87 05/04/21 10:30 89 16 140/87 05/04/21 10:20 87 16 149/95 H 05/04/21 10:10 90 16 163/98 H 05/04/21 10:00 88 16 158/97 H 05/04/21 09:50 90 20 144/101 H 05/04/21 09:40 88 16 164/87 H 05/04/21 09:30 89 16 163/95 H 05/04/21 09:24 36.2 C L 84 24 156/86 H 05/04/21 06:36 36.7 C 84 20 140/89 Pulse Ox 05/04/21 16:25 98 05/04/21 16:00 97 05/04/21 15:55 96 05/04/21 15:25 95 05/04/21 14:30 94 05/04/21 14:00 98 05/04/21 13:30 99 05/04/21 13:00 98 05/04/21 12:30 97 05/04/21 12:00 97 05/04/21 11:45 98 05/04/21 11:30 97 05/04/21 11:15 96 05/04/21 11:00 97 05/04/21 10:50 98 05/04/21 10:40 98 05/04/21 10:30 98 05/04/21 10:20 99 05/04/21 10:10 94 05/04/21 10:00 95 05/04/21 09:50 95 05/04/21 09:40 100 05/04/21 09:30 100 05/04/21 09:24 100 05/04/21 06:36 95 Laboratory Results Short CBC 05/04/21 Range/Units 06:33 WBC 11.09 H (4.8-10.8) K/uL Hgb 10.8 L (14.0-18.0) g/dL Hct 33.1 L (42-52) % Plt Count 540 H (130-400) K/uL BMP 05/04/21 06:33 Sodium 134 L Potassium 4.4 Chloride 100 Carbon Dioxide 28 BUN 10 Creatinine 1.19 Glucose 79 Calcium 8.7 Diagnostic Findings Cervical Spine X-Ray 05/04/21 07:45 INTRAOPERATIVE RADIOGRAPHS CLINICAL HISTORY: Spinal fusion. Fluoroscopy time: 17 seconds. FINDINGS: 3 spot fluoroscopic views of the cervical spine are presented. There is evidence of anterior fusion of the lower cervical spine. The levels are difficult to localize on the provided images. There has reportedly been corpectomy at C5, and there is likely anterior fusion at C4-C6. The orthopedic hardware appears intact. An endotracheal tube is in place. IMPRESSION: Intraoperative images from anterior fusion of the lower cervical spine as above. Electronically signed by: Drake Eid M.D. 05/04/2021 10:29 AM Echocardiogram 03/16/2021 revealed LVEF mildly decreased systolic function with EF 40%, normal right ventricle, mild to moderate mitral regurg, mild tricuspid regurg, left atrium mildly enlarged, diastolic dysfunction grade 1 Medications Administered Current Inpatient Medications Acetaminophen (Acetaminophen 500 Mg Tab) 1,000 mg PO PREOP JUAN Stop: 05/04/21 18:00 Last Admin: 05/04/21 06:35 Dose: Not Given Documented by: Acetaminophen (Acetaminophen 500 Mg Tab) 1,000 mg PO Q8H PRN PRN Reason: MILD Pain Scale 1,2,3 & Pre PT Stop: 06/03/21 12:05 Al Hydrox/Mg Hydrox/Simethicone (Aluminum/Magnesium Susp 30 Ml Udc) 30 ml PO Q6H PRN PRN Reason: Dyspepsia Stop: 06/03/21 12:05 Atorvastatin Calcium (Atorvastatin 40 Mg Tab) 40 mg PO QAM [facility] Stop: 06/04/21 08:59 Bisacodyl (Bisacodyl 10 Mg Supp) 10 mg TN DAILY PRN PRN Reason: Constipation Stop: 06/03/21 12:05 Celecoxib (Celebrex 200 Mg Cap) 200 mg PO PREOP [facility] Stop: 05/04/21 18:00 Last Admin: 05/04/21 07:00 Dose: 200 mg Documented by: Citalopram Hydrobromide (Citalopram 20 Mg Tab) 10 mg PO QAM [facility] Stop: 06/04/21 08:59 Diphenhydramine HCl (Diphenhydramine Capsule 25 Mg Cap) 25 mg PO Q6H PRN PRN Reason: Allergic Rhinitis/Insomnia Stop: 06/03/21 12:05 Epinephrine (Racepinephrine 2.25% Nebu Soln 0.5 Ml Vial) 0.5 ml INH NOW PRN PRN Reason: If stridor present Famotidine (Famotidine 20 Mg Tab) 20 mg PO Q12H PRN PRN Reason: Dyspepsia Stop: 06/03/21 12:05 Gabapentin (Gabapentin 300 Mg Cap) 300 mg PO PREOP JUAN Stop: 05/04/21 18:00 Last Admin: 05/04/21 06:35 Dose: Not Given Documented by: Gabapentin (Gabapentin 800 Mg Tab) 800 mg PO TID JUAN Stop: 06/03/21 13:59 Last Admin: 05/04/21 13:34 Dose: 800 mg Documented by: Hydromorphone HCl (Hydromorphone Inj 0.5 Mg/0.5 Ml Syr) 0.5 mg IV Q3H PRN PRN Reason: MOD pain (scale 4-6) & Pre PT Stop: 05/18/21 12:05 Hydromorphone HCl (Hydromorphone Inj 1 Mg/Ml Syringe) 1 mg IV Q3H PRN PRN Reason: severe pain (scale 7-10) Stop: 05/18/21 12:05 Last Admin: 05/04/21 14:22 Dose: 1 mg Documented by: Hydroxyzine HCl (Hydroxyzine Hcl 25 Mg Tab) 25 mg PO Q8H PRN PRN Reason: Anxiety Stop: 06/03/21 12:05 Lactated Ringer's (Lr) 1,000 mls @ 15 mls/hr IV .Q24H JUAN Stop: 05/05/21 05:59 Last Infusion: 05/04/21 07:50 Dose: Infused Documented by: Cefazolin Sodium (Ancef 1000mg) 1,000 mg in 7.5 mls @ 2.5 mls/min IV PREOP JUAN; Protocol Stop: 05/04/21 18:00 Last Admin: 05/04/21 07:50 Dose: 2.5 mls/min Documented by: Dexamethasone 8 mg/ Syringe 2 mls @ 1 mls/min IV NOW PRN PRN Reason: If stridor present Lactated Ringer's (Lr) 1,000 mls @ 75 mls/hr IV .[id number] JUAN Stop: 06/03/21 12:05 Last Admin: 05/04/21 16:32 Dose: 75 mls/hr Documented by: Promethazine HCl 12.5 mg/ (Sodium Chloride) 50.5 mls @ 202 mls/hr IV Q6H PRN PRN Reason: Nausea &/or Vomiting Stop: 06/03/21 12:05 Acetaminophen (Ofirmev) 1,000 mg in 100 mls @ 400 mls/hr IV Q8H PRN PRN Reason: Pain Rating 1-3 & Pre PT Stop: 05/07/21 12:05 Cefazolin Sodium (Ancef 1000mg) 1,000 mg in 7.5 mls @ 2.5 mls/min IV Q8H JUAN; Protocol Stop: 05/05/21 00:02 Last Admin: 05/04/21 16:33 Dose: 2.5 mls/min Documented by: Dexamethasone 6 mg/ Syringe 1.5 mls @ 1 mls/min IV Q8H JUAN Stop: 05/05/21 08:02 Last Admin: 05/04/21 16:33 Dose: 1 mls/min Documented by: Influenza Virus Vaccine Quadrival (Do Not Administer Flu Vaccine) 1 ea N/A PRN PRN PRN Reason: Notification Stop: 06/03/21 12:05 Levothyroxine Sodium (Levothyroxine Sodium 100 Mcg Tablet) 100 mcg PO DAILYBB [facility] Stop: 06/04/21 06:29 Lorazepam (Lorazepam 0.5 Mg Tab) 0.5 mg PO Q8H PRN PRN Reason: Sedation/Anxiety Stop: 06/03/21 12:05 Lorazepam (Lorazepam 2 Mg/1 Ml Vial) 0.5 mg IV Q8H PRN PRN Reason: Sedation/Anxiety Stop: 06/03/21 12:05 Magnesium Hydroxide (Magnesium Hydroxide Susp 30 Ml Udc) 30 ml PO Q24H PRN PRN Reason: Constipation Stop: 06/03/21 12:05 Methadone HCl (Methadone Hcl 10 Mg Tab) 10 mg PO BID [facility] Stop: 05/18/21 20:59 Metoclopramide HCl (Metoclopramide Hcl Inj 5 Mg/Ml 2 Ml Vial) 10 mg IV Q6H PRN PRN Reason: Nausea &/or Vomiting Stop: 06/03/21 12:05 Miscellaneous (Evoxac 30mg~Order Awaiting Action) 1 ea N/A QS [facility] Stop: 06/03/21 15:59 Naloxone HCl (Naloxone Hcl 0.4 Mg/1 Ml Vial/Carp) 0.1 mg IV Q5M PRN PRN Reason: Oversedation/Resp depression Stop: 06/03/21 12:05 Nortriptyline HCl (Nortriptyline Hcl 10 Mg Cap) 10 mg PO HS [facility] Stop: 06/03/21 20:59 Ondansetron HCl (Ondansetron Inj 2 Mg/Ml 2 Ml Vial) 4 mg IV Q6H PRN PRN Reason: Nausea &/or Vomiting Stop: 06/03/21 12:05 Ondansetron HCl (Ondansetron 4 Mg Od Tab) 4 mg PO Q6H PRN PRN Reason: Nausea Stop: 06/03/21 12:05 Oxycodone HCl (Oxycodone Hcl Ir 5 Mg Tab (Immediate Release)) 5 - 10 mg PO Q4H PRN PRN Reason: Pain & Pre PT Stop: 05/18/21 12:05 Pantoprazole Sodium (Pantoprazole 40 Mg Tab) 40 mg PO QAM JUAN Stop: 06/04/21 08:59 Pneumococcal Polyvalent Vaccine (Do Not Administer Pneumococcal Vaccine) 1 ea N/A PRN PRN PRN Reason: Notification Stop: 06/03/21 12:05 Polyethylene Glycol (Polyethylene (Miralax) 17 Gm Pack) 17 gm PO Q6 JUAN Stop: 06/04/21 05:59 Senna/Docusate Sodium (Docusate Sodium/Senna 50/8.6mg Tab) 2 tab PO HS JUAN Stop: 06/03/21 20:59 Sodium Biphosphate/Sodium Phosphate (Sod Phosphate/Sod Biphosphate Enema 132 Ml Btl) 132 ml TN ONE PRN PRN Reason: Constipation Stop: 06/03/21 12:05 Tramadol HCl (Tramadol Hcl 50 Mg Tablet) 50 - 100 mg PO Q4H PRN PRN Reason: Moderate-Severe pain & Pre PT Stop: 06/03/21 12:05
[2021-05-04] MEDS: DOCUSATE SODIUM/SENNA 50/8.6MG TAB PO SCH (20:39)
[2021-05-04] MEDS: NORTRIPTYLINE HCL 10 MG CAP PO SCH (20:39)
[2021-05-04] MEDS: METHADONE HCL 10 MG TAB PO SCH (20:42)
[2021-05-05] MEDS: ceFAZolin 1000MG 1,000 MG/7.5 ML SYR IV SCH (00:26)
[2021-05-05] MEDS: dexAMETHasone 6 MG in SYRINGE 0 ML IV SCH ×2 (00:26→08:33)
[2021-05-05] MEDS: LACTATED RINGER'S 1,000 ML IV SCH (02:07)
[2021-05-05] MEDS: LEVOTHYROXINE SODIUM 100 MCG TABLET PO SCH (06:25)
[2021-05-05] MEDS: POLYETHYLENE (MIRALAX) 17 GM PACK PO SCH ×4 (06:25→23:18)
[2021-05-05] MEDS: CITALOPRAM 20 MG TAB PO SCH (08:33)
[2021-05-05] MEDS: ATORVASTATIN 40 MG TAB PO SCH (08:33)
[2021-05-05] MEDS: GABAPENTIN 800 MG TAB PO SCH ×3 (08:34→21:46)
[2021-05-05] MEDS: PANTOprazole 40 MG TAB PO SCH (08:34)
[2021-05-05] MEDS: METHADONE HCL 10 MG TAB PO SCH ×2 (08:37→21:46)
--- NOTE | 2021-05-05 10:35 | Orthopedic Progress Note ---
Date of Service May 05, 2021 Assessment & Plan (1) Myelopathy concurrent with and due to spinal stenosis of cervical region: Plan: We will maintain LUZ drain. Continue with ambulation. We will consult social service director for rehab placement versus SNF. Admission and Anticipated Discharge Date Admission Date: May 04, 2021 Nathan Weir is postoperative day 1 ACDF C4-5. He had an uneventful evening. No dysphagia or dysphonia. Arm symptoms improved. LUZ drain output last shift was 25 cc. Review of Systems Review of Systems: All systems reviewed & are unremarkable except as noted in HPI & below Physical Exam 2 Physical Exam: Sitting in a chair in no acute distress Cervical dressing is clean dry and intact [place] J collar intact Strength improving bilateral lower extremities DENISSE hose intact bilateral lower extremities Calf soft nontender bilaterally Results & Data ([facility]) Vital Signs (Past 12 Hours) Vital Signs Temp Pulse Pulse Resp BP Pulse Ox 05/05/21 10:25 36.5 C 63 16 160/83 H 95 05/05/21 07:36 36.6 C 80 16 126/84 96 05/05/21 07:00 70 18 92 05/05/21 06:27 36.7 C 85 16 152/87 H 94 05/05/21 04:25 36.7 C 74 18 150/82 H 97 05/05/21 03:03 88 17 95 05/05/21 02:14 37.0 C 74 16 154/84 H 96 05/05/21 00:23 36.7 C 79 16 146/80 H 95
--- NOTE | 2021-05-05 20:16 | Hospitalist Progress Note ---
Date of Service May 05, 2021 Assessment & Plan (1) Myelopathy concurrent with and due to spinal stenosis of cervical region: (2) Heart disease: Plan: Myelopathy secondary to cervical spine stenosis S/P ACDF C4-C5 by Dr. 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 Reported weight loss of approximately 50 pounds Patient reports weighing in the 170s and now weighing in the 120s an approximate 2 to 3-month span Consult dietitian With close follow-up with PCP for further work-up as outpatient Hx of HTN off medication due to Orthostasis monitor Anemia Unknown origin, prior history of mouth cancer Hemoglobin 10.8 Monitor CBC Chronic Pain on methadone, gabapentin, nortriptyline Code Status FULL CODE Disposition As per primary Admission and Anticipated Discharge Date Admission Date: May 04, 2021 Subjective Patient is seen and examined at bedside States feeling well today Offers no complaints Denies any chest pain, shortness of breath, dizziness, nausea, abdominal pain Review of Systems Review of Systems: All systems reviewed & are unremarkable except as noted in Subjective Physical Exam Physical Exam: Physical Exam: Vitals signs as noted above General Appearance: Thin, frail, no apparent distress Head: normocephalic, Atraumatic, +Neck Collar Eyes: normal inspection, EOMI Neck: supple, Trachea midline Respiratory/Chest: Decreased breath sounds, CTA, No accessory muscle use Cardiovascular: S1, S2, No murmur Abdomen/GI:Soft, Non tender, Bowel sounds present Extremities/Musculoskeletal:normal inspection, no edema Neurologic/Psych:AAOX3, grossly no focal neurological deficits Skin: normal color, warm Results & Data Results & Data ([facility]) Vital Signs (Past 12 Hours) Vital Signs Temp Pulse Pulse Resp BP Pulse Ox 05/05/21 15:37 36.7 C 84 16 156/97 H 98 05/05/21 15:02 98 H 16 94 05/05/21 14:25 36.9 C 87 16 139/84 97 05/05/21 12:13 63 16 148/90 H 96 05/05/21 11:05 86 15 96 05/05/21 10:25 36.5 C 63 16 160/83 H 95
[2021-05-05] MEDS: DOCUSATE SODIUM/SENNA 50/8.6MG TAB PO SCH (21:46)
[2021-05-05] MEDS: NORTRIPTYLINE HCL 10 MG CAP PO SCH (21:46)
[2021-05-06] MEDS: POLYETHYLENE (MIRALAX) 17 GM PACK PO SCH (05:15)
[2021-05-06] MEDS: LEVOTHYROXINE SODIUM 100 MCG TABLET PO SCH (05:33)
[2021-05-06 05:40] LABS: Hematocrit (blood only) 30.2 % (42-52); Hemoglobin 9.9 g/dL (14.0-18.0); Mean Corpuscular Hemoglobin 34.1 pg (25-34); Mean Corpuscular Hgb Conc 32.8 g/dL (32-36); Mean Corpuscular Volume 104.1 fL (80-100); Platelet Count 380 K/uL (130-400); RDW Coefficient of Variation 18.2 % (11.5-14.5); RDW Standard Deviation 69.5 fL (36.4-46.3); White Blood Count 10.08 K/uL (4.8-10.8)
[2021-05-06 06:01] LABS: BUN Creatinine Ratio 15.2 (10-20); Calcium 8.1 mg/dl (8.5-10.1); Creatinine Clr Calc Pharmacy 81.7 ml/min; Est GFR (African American) 112.7 ml/min; Est GFR (Non-African American) 97.3 ml/min; Potassium 3.9 mmol/L (3.5-5.1)
[2021-05-06] MEDS: CITALOPRAM 20 MG TAB PO SCH (07:56)
[2021-05-06] MEDS: ATORVASTATIN 40 MG TAB PO SCH (07:56)
[2021-05-06] MEDS: METHADONE HCL 10 MG TAB PO SCH (07:56)
[2021-05-06] MEDS: GABAPENTIN 800 MG TAB PO SCH (07:56)
[2021-05-06] MEDS: PANTOprazole 40 MG TAB PO SCH (07:56)
--- NOTE | 2021-05-06 09:34 | Discharge Summary ---
Date of Service May 06, 2021 Principal Diagnosis Cervical myelopathy Discharge Data Allergies Allergy/AdvReac Type Severity Reaction Status Date / Time No Known Allergies Allergy Verified 05/04/21 06:28 Consultations 05/04/21 12:06 Consult Hospitalist Routine Procedures Performed Operation Date: 04/08/21 07:45 <No data on this case meets the specified criteria> Operation Date: 05/04/21 07:45 Actual Procedures p Anterior cervical discectomy and fusion c4-c5, spinal cord monitoring (Not Applicable) - Jun Allen DO Ordered Studies 05/04/21 07:45 FL cervical 2-3V Routine Hospital Course (1) Myelopathy concurrent with and due to spinal stenosis of cervical region: Patient 1 anterior cervical discectomy and fusion tolerates well second orthopedic floor postoperative. Postop day 1 he was swallowing well no hoarseness. Arm symptoms improved. Progressed to postop day #2. LUZ drain decreasing appropriately. Excellent strength testing. Subsequently discharged home. Discharge orders instructions from the chart for further review. Total Time Total Time Spent Total Time Spent (In Minutes): 20 minutes Discharge Plan Discharge Items Patient Disposition: Home - Home Health Services Reason For Visit: Other Spondylosis with Myelopatyh Cervical Region Discharge Diagnosis: Cervical spinal stenosis with myeloradiculopathy Activity: As commented below Non-emergency contact: Primary Care Provider Call non-emergency contact if: you have any medication questions Follow-up/Referrals: Los Sheehan D.O. [Primary Care Provider] - Diet: Regular Addtl Attending Provider Instructions: ACTIVITY RECOMMENDATIONS: SELF CARE INSTRUCTIONS AFTER CERVICAL FUSIONS 1. No smoking. Smoking drastically decreases the chance of a solid fusion. 2. No bending, lifting more than 5 pounds, or twisting (roll like a log when turning in bed). 3. You may shower 3 days after surgery. Thoroughly dry wound. Do not soak in the tub. 4. Cervical collar: Must be worn at all times including sleeping. You may remove the brace only to bath, eat and if you are sitting in a recliner. 5. Please walk as much as you can for exercise. Gradually increase the distance that you walk as your endurance increases. SPECIAL CARE INSTRUCTIONS: VERY IMPORTANT TO READ AND REVIEW A. Do not take any anti-inflammatory medications (i.e. Indocin, Advil, Aspirin, Naprosyn, Aleve, Motrin, etc.) as these may inhibit the chance of a solid fusion. Tylenol is okay to take. B. Your surgical incision has been closed with a cosmetic suture under the skin that will dissolve in about 6 weeks. In 14 days, you can use a pair of clean scissors and cut the suture that is left outside of the skin at the ends of your incision. C. Complications are uncommon, but please contact us if you have any signs or symptoms of: 1. wound infection (fever higher than 102.5 degrees F, redness, separation of wound, drainage, or increasing pain from the incision) 2. blood clots in legs (pain, swelling, redness and warmth in legs) 3. urinary tract infection (fever higher than 102.5 degrees, burning upon urination or increased frequency of urination) 4. nerve problems (inability to walk on your toes or heels, numbness, loss of bowel or bladder control) 5. any other symptoms that concern you. D. Please call the office at if you have any concerns or questions about your operation or recovery. MANAGING PAIN AFTER SPINAL SURGERY 1. Narcotic medication is intended for short-term use and will be provided for surgical pain. Surgical pain usually lasts for a period of 4-6 weeks. Narcotic medication includes Percocet, Vicodin, Darvocet, Tylenol #3 or Lortab. 2. Longer-term pain is more appropriately treated with non-narcotic medication such as Tylenol ES. 3. Muscle spasm is not appropriately treated with narcotics. Muscle relaxers such as Soma, Flexeril or Skelaxin can be used along with Tylenol ES. 4. Remember that we all live with some "aches and pains". This is not unusual or uncommon after an injury or as we get older. 5. We will provide appropriate medication within the normal guidelines of their prescribed use. We will also be very cautious and aware of potential abuse and extended duration of patients' medication needs. 6. Please allow 2-3 days to process refills. Prescriptions will not be mailed but must be picked up at the office. FOLLOW UP VISIT: Keep your scheduled follow-up appointment. Any questions, please call the office at . Pending Studies at Discharge: No Stand-Alone Forms: Socii, Smoking Cessation Medications and DC Order Prescriptions: Continued atorvastatin [Lipitor] 40 mg Tablet 40 mg PO QAM RF: 0 acetaminophen [Tylenol] 325 mg Tablet 650 mg PO TID RF: 0 citalopram [Celexa] 10 mg Tablet 10 mg PO QAM RF: 0 methadone 10 mg Tablet 10 mg PO BID RF: 0 gabapentin 800 mg Tablet 800 mg PO TID RF: 0 pantoprazole [Protonix] 40 mg Tablet,Delayed Release (Dr/Ec) 40 mg PO QAM RF: 0 nortriptyline [Pamelor] 10 mg Capsule 10 mg PO HS RF: 0 cevimeline [Evoxac] 30 mg Capsule 1 cap PO QAM RF: 0 levothyroxine 100 mcg Capsule 100 mcg PO QAM RF: 0 aspirin 81 mg Tablet,Delayed Release (Dr/Ec) 81 mg PO DAILY RF: 0 Discharge Orders: Discharge Order (Routine); Ordered 05/06/21 Ordered By: Jun Allen Admission Data Admit Date/Time: 05/04/21 09:14 Attending Provider: Jun Allen Admit Provider: Jun Allen Primary Care Provider: Los Sheehan Other Providers: Sam Sr
--- NOTE | 2021-05-06 10:23 | Hospitalist Progress Note ---
Date of Service May 06, 2021 Assessment & Plan (1) Myelopathy concurrent with and due to spinal stenosis of cervical region: (2) Heart disease: Plan: Myelopathy secondary to cervical spine stenosis S/P ACDF C4-C5 by Dr. 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 Reported weight loss of approximately 50 pounds Patient reports weighing in the 170s and now weighing in the 120s an approximate 2 to 3-month span Consult dietitian With close follow-up with PCP for further work-up as outpatient Hx of HTN off medication due to Orthostasis monitor Anemia Unknown origin, prior history of mouth cancer Hemoglobin 10.8>>9.9 Monitor CBC Chronic Pain on methadone, gabapentin, nortriptyline Code Status FULL CODE Disposition As per primary Admission and Anticipated Discharge Date Admission Date: May 04, 2021 Subjective Patient is seen and examined at bedside States having mild occipital headache No other complaints Denies any chest pain, shortness of breath, dizziness, nausea, abdominal pain Review of Systems Review of Systems: All systems reviewed & are unremarkable except as noted in Subjective Physical Exam Physical Exam: Physical Exam: Vitals signs as noted above General Appearance: Thin, frail, no apparent distress Head: normocephalic, Atraumatic, +Neck Collar Eyes: normal inspection, EOMI Neck: supple, Trachea midline Respiratory/Chest: Decreased breath sounds, CTA, No accessory muscle use Cardiovascular: S1, S2, No murmur Abdomen/GI:Soft, Non tender, Bowel sounds present Extremities/Musculoskeletal:normal inspection, no edema Neurologic/Psych:AAOX3, grossly no focal neurological deficits Skin: normal color, warm Results & Data Results & Data ([facility]) Vital Signs (Past 12 Hours) Vital Signs Temp Pulse Pulse Pulse Resp BP Pulse Ox 05/06/21 09:59 36.6 C 86 76 87 16 147/87 H 98 05/06/21 07:14 36.6 C 76 16 147/87 H 98 05/06/21 07:10 72 16 94 05/06/21 03:42 36.4 C L 99 H 14 150/94 H 94 05/06/21 03:25 87 16 97 05/05/21 22:34 36.4 C L 99 H 14 162/97 H 96 05/05/21 22:30 84 16 96 Laboratory Results Short CBC 05/06/21 Range/Units 05:30 WBC 10.08 (4.8-10.8) K/uL Hgb 9.9 L (14.0-18.0) g/dL Hct 30.2 L (42-52) % Plt Count 380 (130-400) K/uL BMP 05/06/21 05:30 Sodium 137 Potassium 3.9 Chloride 105 Carbon Dioxide 27 BUN 10 Creatinine 0.66 D Glucose 87 Calcium 8.1 L
== END 2021-05-06 12:00 | disposition home health service (06) | DRG 472 ==
LOC: ASU 06:05 → PACUINP 09:14 → 3E 15:39

== ENCOUNTER 2021-05-29 10:53 | Inpatient (IN) ==
[~2021-05-29 10:53] MED LIST changes: -ACETAMINOPHEN 500 MG TAB PO SCH; -CeleBREX 200 MG CAP PO SCH; -GABAPENTIN 300 MG CAP PO SCH; -LR 15ML/HR IV SCH; +RAPID SEQUENCE INDUCTION BAG ONE; -ceFAZolin 1000MG 1,000 MG/7.5 ML SYR IV SCH
[2021-05-29] MEDS ORDERED: SODIUM CHLORIDE 0.9% 1000ML 1,000 ML IV ONE ×2 (10:58→12:15)
--- NOTE | 2021-05-29 11:11 | Emergency Department Note ---
Impression & Plan AMS (altered mental status), Seizure, Elevated lactic acid level, Elevated troponin I level ED Provider Note Provider: Augusto Love MD DATE OF SERVICE: 05/29/2021 CHIEF COMPLAINT: Unresponsive HISTORY OF PRESENT ILLNESS: Patient is a 70-year-old gentleman history of mouth cancer as well as recent cervical surgery on 04 May presenting here via ambulance today after being found unresponsive on the floor at his house by family. Evidently the patient was last seen sometime yesterday evening around dinner. Was found on the floor by family today and was not responsive for them. EMS was activated. They report that the patient would not talk to them. They report that he seemed to have unequal pupils with his right pupil being more dilated. He states he had a brief 30 second to a minute long seizure that was terminated quickly with 2 mg of Ativan prior to arrival. He was found on the floor and it is unclear if he fell or not. Patient has been wearing a cervical collar prior to his arrival related to his recent surgery by their report. Patient presents with his home medications in a zip lock bag. Patient himself is does not follow commands or speak. Later was able to contact the patient's friend Mr. Reddy is listed as his emergency contact in the medical record who states that the past month or so since cervical neck surgery he has been having some loose Nations and not doing that well. Was evidently admitted last weekend at [place] for this and diagnosed with a UTI and completed antibiotics for this. He was a somewhat frequent alcohol drinker but friend reports that since this past about 8 to 9 days ago he threw all this away and has not had any alcohol since then. Was reporting to the friend being a bit nauseous 2 days ago but did not really report this yesterday. The patient's sister from [place] evidently had just come into town over the last several days. Patient's hallucinations reportedly are of his who "has been stealing things around the house". REVIEW OF SYSTEMS: Limited secondary to mental status PAST MEDICAL HISTORY: As noted above from medical record MEDICATIONS: Reviewed medications that, with the patient in his Ziploc bag SOCIAL HISTORY: Is at home, additional limited secondary to mental status PHYSICAL EXAM: GENERAL: In with eyes closed resting on stretcher cervical collar in place moving predominantly the left arm and leg as well as the right arm at times. Head: normocephalic and atraumatic EYES: No injection, discharge or icterus. Some disconjugate gaze with 4 mm right pupil and 2 mm left pupil occasional movement of the eyes but no gaze deviation. NECK: Trachea midline. Supple with well-healed anterior ACDF wound. No significant erythema or crepitus appreciated. ENT: Mucous membranes pink and moist. Pharynx without erythema or exudate. Nasopharyngeal airway in place in the right nares. Intact gag reflex. LUNGS: Airway patent. No retractions. Breath sounds clear HEART: Regular tachycardic rate and rhythm. No chest wall tenderness or crepitus noted ABDOMEN: Soft and non-tender, without guarding or rebound. SKIN: Acyanotic, warm, dry EXTREMITIES: Without swelling, tenderness or deformity NEUROLOGICAL: Patient withdraws to pain in all 4 extremities. Appears to have decent strength in all 4 extremities with a predominantly moving left arm and leg. Patient does not follow commands and eyes are closed. No verbalizations noted. EK bpm sinus tachycardia. No PVC noted. QTc 545. No acute ST segment elevation or depression noted. Some slight B1 artifact noted in the 6-second lead. CONTINUOUS CARDIAC MONITORING: was ordered and showed a heart rate of 80s-110s bpm in normal sinus rhythm to sinus tachycardia GCS upon arrival 6 and later 9 Patient's laboratory studies and imaging reviewed. Differential includes traumatic, neurological, infection, dehydration, metabolic abnormality, hypo/hyperglycemia, electrolyte disturbance, anemia, hypoxia, cardiac sources, intracerebral event, toxicologic, as well as other pathologies. IMPRESSION/MEDICAL DECISION MAKING: Patient found on floor not responsive to commands with possible seizure event prior to arrival. No history of seizures noted from the chart. Patient however via medical history upon arrival. Oxygenating well on room air with NPA and seems to be protecting his airway although not following commands. Cervical collar in place likely from his prior surgery and maintained here. Sent for CTs of the head and cervical spine as well as angiograms of possible. Basic labs were completed as well as cultures. CTs of the head and cervical spine per radiology report it intracranial bleed noted. Some stenosis noted in the carotids but no of acute vascular occlusion noted per the radiology report. No acute cervical spine fractures noted per report. From reported history not sounding like a clear infectious etiology. Some chronicity to reason hallucinations reported. Patient does have a leukocytosis here but question of this is reactive from his seizure type event. Lactate additionally is elevated. Given IV fluid here. Given the concern for seizure given a gram of IV Keppra although he is not had seizure activity while here. Nasopharyngeal airway been removed and the patient continues to maintain his airway and do well on room air. Does have some elevation of his AST ALT and high-sensitivity troponin as well as some elevation of procalcitonin. Urinalysis not appear infected and chest x-ray appears without evidence of pneumonia. Covid negative. Urine more than 30/kg of IV fluids. Medical alcohol was ordered after discussion with his friend. Will cover broadly with ceftriaxone given leukocytosis and elevated lactate although not clearly from the history infectious. Not having concerning fluid collections on the imaging or findings on clinical exam to concern the neck incision and recent surgery. Patient occasionally opens eyes but not following commands or speaking but I do not feel at this time would tolerate additional invasive testing such as lumbar puncture and again is not clear that this is the etiology either. Some chronic delirium/hallucinations over the past week as well as recent alcohol cessation are reported friends and family. Did update the patient's friend via phone who provided additional history and encouraged him to have [facility] family members call in. Patient requires admission at this time given his altered mental status. Some magnesium supplementation was completed as well. No significant findings of trauma on clinical exam with a benign abdomen chest on exam. CT scan of the abdomen pelvis question some gallbladder distention and completed given some mild LFT abnormalities however bilirubin not elevated. Question if this could be a nidus of infection although not clearly obstructive in nature. Sister later arrived at bedside was updated. DIAGNOSIS: Altered mental status, seizure, Elevated troponin, elevated lactate, hypomagnesemia DISPOSITION: Hospitalist will evaluate Past Med/Surg History Medical History Anemia CAD (coronary artery disease) 2010- [facility] showed patent LAD and LCX stents, mild RCA disease per cardio records [place]- approx 15 years ago, total of 4 stents over time- most recent stent [address] 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 Decker in [place] Surgical History H/O hand surgery "L hand traumatic injury repair around 1995" Hx of cardiac cath heart attack 15 years, total of [address] Chaney in [place] Hx of colonoscopy Family History (Updated 05/04/21 @ 16:35 by Cristal Kilpatrick PA-C) Mother Hypothyroidism Father Heart disease Social History Smoking Status: Former smoker Second Hand Exposure: No; Hx Alcohol Use: No (HX ALCOHOL USE - QUIT 2015) Hx Substance Use: No Preferred Language: Latvian Communication Ability: Effective Telephone Instrument Supervisor Required: No Beliefs That Will Affect Care: None Current Living Situation: Alone Assistive Devices: Cane Allergies Allergies Allergy/AdvReac Type Severity Reaction Status Date / Time No Known Allergies Allergy Verified 05/29/21 14:40 Home Meds Home Medications Medication Instructions Recorded Confirmed acetaminophen 325 mg tablet 650 mg PO TID 10/28/20 05/29/21 (Tylenol) atorvastatin 40 mg tablet (Lipitor) 40 mg PO QAM 10/28/20 05/29/21 gabapentin 800 mg tablet 800 mg PO TID 10/28/20 05/29/21 methadone 10 mg tablet 10 mg PO BID PRN 10/28/20 05/29/21 nortriptyline 10 mg capsule 10 mg PO HS 10/28/20 05/29/21 (Pamelor) aspirin 81 mg tablet,delayed 81 mg PO DAILY 05/04/21 05/29/21 release cevimeline 30 mg capsule 30 mg PO TID 05/29/21 05/29/21 citalopram 20 mg tablet 20 mg PO DAILY 05/29/21 05/29/21 docusate sodium 100 mg capsule 100 mg PO BID 05/29/21 05/29/21 esomeprazole magnesium 40 mg 40 mg PO DAILY 05/29/21 05/29/21 capsule,delayed release famotidine 20 mg tablet 20 mg PO DAILY PRN 05/29/21 05/29/21 levothyroxine 112 mcg tablet 112 mcg PO DAILYBB 05/29/21 05/29/21 Results & Data (ED) Vital Signs Vital Signs - 24 hr 05/29/21 10:53 05/29/21 11:30 05/29/21 12:00 Temperature 37.4 C Temperature Source Oral Pulse Rate 108 H Pulse Rate [Apical] 98 H 98 H Pulse Rhythm [Apical] Regular Regular Respiratory Rate 16 16 14 Respiratory Effort / Characteristics Non-Labored Non-Labored Non-Labored Respiratory Depth Normal Normal Normal Blood Pressure 162/87 H Blood Pressure [Right Arm] 165/99 H 161/97 H Blood Pressure Mean 112 Blood Pressure Mean [Right Arm] 121 118 Blood Pressure Position Lying Pulse Oximetry 96 98 98 Oxygen Delivery Method Room Air Room Air Room Air Sepsis Recent Fever Within 48 Hours No Sepsis New/Unexplained Change in Mental Status No Sepsis Action Taken by Nursing No Action Required 05/29/21 12:30 05/29/21 13:00 05/29/21 13:30 Temperature Temperature Source Pulse Rate Pulse Rate [Apical] 105 H 102 H 98 H Pulse Rhythm [Apical] Regular Regular Regular Respiratory Rate 16 14 16 Respiratory Effort / Characteristics Non-Labored Non-Labored Non-Labored Respiratory Depth Normal Normal Normal Blood Pressure Blood Pressure [Right Arm] 163/99 H 160/96 H 166/104 H Blood Pressure Mean Blood Pressure Mean [Right Arm] 120 117 124 Blood Pressure Position Pulse Oximetry 98 96 98 Oxygen Delivery Method Room Air Room Air Room Air Sepsis Recent Fever Within 48 Hours Sepsis New/Unexplained Change in Mental Status Sepsis Action Taken by Nursing Laboratory Data Result diagrams: 05/29/21 11:09 05/29/21 11:09 Lab Results 05/29/21 05/29/21 05/29/21 Range/Units 11:04 11:09 11:09 WBC 26.23 H (4.8-10.8) K/uL RBC 4.12 L (4.7-6.1) M/uL Hgb 14.1 (14.0-18.0) g/dL POC Hgb 15.3 (14.0-18.0) g/dl Hct 42.8 (42-52) % POC Hct 45 (42-52) % MCV 103.9 H (80-100) fL MCH 34.2 H (25-34) pg MCHC 32.9 (32-36) g/dL RDW Std Deviation 60.9 H (36.4-46.3) fL RDW Coeff of Kaya 16.0 H (11.5-14.5) % Plt Count 697 H (130-400) K/uL MPV 9.8 (7.4-10.4) fL Immature Gran % (Auto) 0.5 % Neut % (Auto) 94.5 % Lymph % (Auto) 1.3 % M[place] % (Auto) 3.5 % Eos % (Auto) 0.0 % Baso % (Auto) 0.2 % Neut # (Auto) 24.79 H (1.4-6.5) K/uL Lymph # (Auto) 0.33 L (1.2-3.4) K/uL Mingo # (Auto) 0.92 H (0.11-0.59) K/uL Eos # (Auto) 0.01 (0-0.5) K/uL Baso # (Auto) 0.06 (0-0.2) K/uL Immature Gran # (Auto) 0.12 H (0.00-0.02) K/uL PT (9.0-12.0) Seconds INR (0.9-1.1) POC Sodium 138 (135-144) mmol/L Sodium (136-145) mmol/L POC Potassium 3.9 (3.3-5.0) mmol/L Potassium (3.5-5.1) mmol/L POC Chloride 101 (101-112) mmol/L Chloride (98-107) mmol/L Carbon Dioxide (21-32) mmol/L POC Total CO2 22 L (24-31) mmol/L Anion Gap (3-11) POC Anion Gap 20.0 (16-25) mmol/L POC BUN 7 (7-18) mg/dl BUN (6-23) mg/dl Creatinine (0.6-1.4) mg/dl POC Creatinine 0.9 (0.6-1.3) mg/dl Est Cr Clr Drug Dosing Est GFR ( Amer) ml/min Est GFR (Non-Af Amer) ml/min BUN/Creatinine Ratio (10-20) Glucose (70-99(Fasting)) mg/dl POC Glucose (other) 161 H (70-99) mg/dl Lactate (0.4-2.0) mmol/L Calcium (8.5-10.1) mg/dl POC Ioniz Calcium Kuldeep 1.09 L (1.12-1.32) mmol/l Magnesium (1.7-2.4) mg/dl Total Bilirubin (0.2-1.0) mg/dl AST (13-39) U/L ALT (7-52) U/L Alkaline Phosphatase (34-104) U/L Total Creatine Kinase (30-223) U/L Troponin I High Sens 154.9 H* (0-20) pg/ml Total Protein (6.0-8.3) gm/dl Albumin (3.4-5.0) gm/dl Globulin (2.5-4.0) gm/dl Albumin/Globulin Ratio (0.9-2) Lipase (11-82) U/L Procalcitonin (0-0.5) ng/ml TSH (0.300-4.500) uIu/ml Prolactin ng/ml Urine Color Urine Appearance (Clear) Urine pH (4.5-7.5) Ur Specific [place] (1.000-1.030) Urine Protein (Negative) Urine Glucose (UA) (Negative) Urine Ketones (Negative) Urine Blood (Negative) Urine Nitrite (Negative) Urine Bilirubin (Negative) Urine Urobilinogen (Negative) Ur Leukocyte Esterase (Negative) Ethyl Alcohol mg/dL (<10.0) mg/dl SARS-CoV-2, RNA, NAAT (NEGATIVE) 05/29/21 05/29/21 05/29/21 Range/Units 11:09 11:09 11:09 WBC (4.8-10.8) K/uL RBC (4.7-6.1) M/uL Hgb (14.0-18.0) g/dL POC Hgb (14.0-18.0) g/dl Hct (42-52) % POC Hct (42-52) % MCV (80-100) fL MCH (25-34) pg MCHC (32-36) g/dL RDW Std Deviation (36.4-46.3) fL RDW Coeff of Kaya (11.5-14.5) % Plt Count (130-400) K/uL MPV (7.4-10.4) fL Immature Gran % (Auto) % Neut % (Auto) % Lymph % (Auto) % [place] % (Auto) % Eos % (Auto) % Baso % (Auto) % Neut # (Auto) (1.4-6.5) K/uL Lymph # (Auto) (1.2-3.4) K/uL Mingo # (Auto) (0.11-0.59) K/uL Eos # (Auto) (0-0.5) K/uL Baso # (Auto) (0-0.2) K/uL Immature Gran # (Auto) (0.00-0.02) K/uL PT 12.2 H (9.0-12.0) Seconds INR 1.2 H (0.9-1.1) POC Sodium (135-144) mmol/L Sodium 139 (136-145) mmol/L POC Potassium (3.3-5.0) mmol/L Potassium 3.9 (3.5-5.1) mmol/L POC Chloride (101-112) mmol/L Chloride 101 (98-107) mmol/L Carbon Dioxide 21 (21-32) mmol/L POC Total CO2 (24-31) mmol/L Anion Gap 17 H (3-11) POC Anion Gap (16-25) mmol/L POC BUN (7-18) mg/dl BUN 8 (6-23) mg/dl Creatinine 1.03 (0.6-1.4) mg/dl POC Creatinine (0.6-1.3) mg/dl Est Cr Clr Drug Dosing Not Reportable Est GFR ( Amer) 84.3 ml/min Est GFR (Non-Af Amer) 72.7 ml/min BUN/Creatinine Ratio 7.8 L (10-20) Glucose 152 H (70-99(Fasting)) mg/dl POC Glucose (other) (70-99) mg/dl Lactate 7.2 H* (0.4-2.0) mmol/L Calcium 9.2 (8.5-10.1) mg/dl POC Ioniz Calcium Kuldeep (1.12-1.32) mmol/l Magnesium 1.5 L (1.7-2.4) mg/dl Total Bilirubin 0.8 (0.2-1.0) mg/dl AST 197 H (13-39) U/L ALT 178 H (7-52) U/L Alkaline Phosphatase 271 H (34-104) U/L Total Creatine Kinase 67 (30-223) U/L Troponin I High Sens (0-20) pg/ml Total Protein 6.5 (6.0-8.3) gm/dl Albumin 3.5 (3.4-5.0) gm/dl Globulin 3.0 (2.5-4.0) gm/dl Albumin/Globulin Ratio 1.2 (0.9-2) Lipase (11-82) U/L Procalcitonin (0-0.5) ng/ml TSH (0.300-4.500) uIu/ml Prolactin ng/ml Urine Color Urine Appearance (Clear) Urine pH (4.5-7.5) Ur Specific [place] (1.000-1.030) Urine Protein (Negative) Urine Glucose (UA) (Negative) Urine Ketones (Negative) Urine Blood (Negative) Urine Nitrite (Negative) Urine Bilirubin (Negative) Urine Urobilinogen (Negative) Ur Leukocyte Esterase (Negative) Ethyl Alcohol mg/dL (<10.0) mg/dl SARS-CoV-2, RNA, NAAT (NEGATIVE) 05/29/21 05/29/21 05/29/21 Range/Units 11:09 11:09 11:09 WBC (4.8-10.8) K/uL RBC (4.7-6.1) M/uL Hgb (14.0-18.0) g/dL POC Hgb (14.0-18.0) g/dl Hct (42-52) % POC Hct (42-52) % MCV (80-100) fL MCH (25-34) pg MCHC (32-36) g/dL RDW Std Deviation (36.4-46.3) fL RDW Coeff of Kaya (11.5-14.5) % Plt Count (130-400) K/uL MPV (7.4-10.4) fL Immature Gran % (Auto) % Neut % (Auto) % Lymph % (Auto) % M[place] % (Auto) % Eos % (Auto) % Baso % (Auto) % Neut # (Auto) (1.4-6.5) K/uL Lymph # (Auto) (1.2-3.4) K/uL M[place] # (Auto) (0.11-0.59) K/uL Eos # (Auto) (0-0.5) K/uL Baso # (Auto) (0-0.2) K/uL Immature Gran # (Auto) (0.00-0.02) K/uL PT (9.0-12.0) Seconds INR (0.9-1.1) POC Sodium (135-144) mmol/L Sodium (136-145) mmol/L POC Potassium (3.3-5.0) mmol/L Potassium (3.5-5.1) mmol/L POC Chloride (101-112) mmol/L Chloride (98-107) mmol/L Carbon Dioxide (21-32) mmol/L POC Total CO2 (24-31) mmol/L Anion Gap (3-11) POC Anion Gap (16-25) mmol/L POC BUN (7-18) mg/dl BUN (6-23) mg/dl Creatinine (0.6-1.4) mg/dl POC Creatinine (0.6-1.3) mg/dl Est Cr Clr Drug Dosing Est GFR ( Amer) ml/min Est GFR (Non-Af Amer) ml/min BUN/Creatinine Ratio (10-20) Glucose (70-99(Fasting)) mg/dl POC Glucose (other) (70-99) mg/dl Lactate (0.4-2.0) mmol/L Calcium (8.5-10.1) mg/dl POC Ioniz Calcium Kuldeep (1.12-1.32) mmol/l Magnesium (1.7-2.4) mg/dl Total Bilirubin (0.2-1.0) mg/dl AST (13-39) U/L ALT (7-52) U/L Alkaline Phosphatase (34-104) U/L Total Creatine Kinase (30-223) U/L Troponin I High Sens (0-20) pg/ml Total Protein (6.0-8.3) gm/dl Albumin (3.4-5.0) gm/dl Globulin (2.5-4.0) gm/dl Albumin/Globulin Ratio (0.9-2) Lipase (11-82) U/L Procalcitonin 1.29 H (0-0.5) ng/ml TSH 3.335 (0.300-4.500) uIu/ml Prolactin 23.94 ng/ml Urine Color Urine Appearance (Clear) Urine pH (4.5-7.5) Ur Specific [place] (1.000-1.030) Urine Protein (Negative) Urine Glucose (UA) (Negative) Urine Ketones (Negative) Urine Blood (Negative) Urine Nitrite (Negative) Urine Bilirubin (Negative) Urine Urobilinogen (Negative) Ur Leukocyte Esterase (Negative) Ethyl Alcohol mg/dL (<10.0) mg/dl SARS-CoV-2, RNA, NAAT (NEGATIVE) 05/29/21 05/29/21 05/29/21 Range/Units 11:35 11:35 12:49 WBC (4.8-10.8) K/uL RBC (4.7-6.1) M/uL Hgb (14.0-18.0) g/dL POC Hgb (14.0-18.0) g/dl Hct (42-52) % POC Hct (42-52) % MCV (80-100) fL MCH (25-34) pg MCHC (32-36) g/dL RDW Std Deviation (36.4-46.3) fL RDW Coeff of Kaya (11.5-14.5) % Plt Count (130-400) K/uL MPV (7.4-10.4) fL Immature Gran % (Auto) % Neut % (Auto) % Lymph % (Auto) % Mingo % (Auto) % Eos % (Auto) % Baso % (Auto) % Neut # (Auto) (1.4-6.5) K/uL Lymph # (Auto) (1.2-3.4) K/uL Mingo # (Auto) (0.11-0.59) K/uL Eos # (Auto) (0-0.5) K/uL Baso # (Auto) (0-0.2) K/uL Immature Gran # (Auto) (0.00-0.02) K/uL PT (9.0-12.0) Seconds INR (0.9-1.1) POC Sodium (135-144) mmol/L Sodium (136-145) mmol/L POC Potassium (3.3-5.0) mmol/L Potassium (3.5-5.1) mmol/L POC Chloride (101-112) mmol/L Chloride (98-107) mmol/L Carbon Dioxide (21-32) mmol/L POC Total CO2 (24-31) mmol/L Anion Gap (3-11) POC Anion Gap (16-25) mmol/L POC BUN (7-18) mg/dl BUN (6-23) mg/dl Creatinine (0.6-1.4) mg/dl POC Creatinine (0.6-1.3) mg/dl Est Cr Clr Drug Dosing Est GFR ( Amer) ml/min Est GFR (Non-Af Amer) ml/min BUN/Creatinine Ratio (10-20) Glucose (70-99(Fasting)) mg/dl POC Glucose (other) (70-99) mg/dl Lactate (0.4-2.0) mmol/L Calcium (8.5-10.1) mg/dl POC Ioniz Calcium Kuldeep (1.12-1.32) mmol/l Magnesium (1.7-2.4) mg/dl Total Bilirubin (0.2-1.0) mg/dl AST (13-39) U/L ALT (7-52) U/L Alkaline Phosphatase (34-104) U/L Total Creatine Kinase (30-223) U/L Troponin I High Sens (0-20) pg/ml Total Protein (6.0-8.3) gm/dl Albumin (3.4-5.0) gm/dl Globulin (2.5-4.0) gm/dl Albumin/Globulin Ratio (0.9-2) Lipase (11-82) U/L Procalcitonin (0-0.5) ng/ml TSH (0.300-4.500) uIu/ml Prolactin ng/ml Urine Color Yellow Urine Appearance Clear (Clear) Urine pH 8.5 H (4.5-7.5) Ur Specific [place] 1.041 H (1.000-1.030) Urine Protein Negative (Negative) Urine Glucose (UA) Negative (Negative) Urine Ketones Negative (Negative) Urine Blood Negative (Negative) Urine Nitrite Negative (Negative) Urine Bilirubin Negative (Negative) Urine Urobilinogen Negative (Negative) Ur Leukocyte Esterase Negative (Negative) Ethyl Alcohol mg/dL < 10.0 (<10.0) mg/dl SARS-CoV-2, RNA, NAAT NEGATIVE (NEGATIVE) 05/29/21 05/29/21 Range/Units 12:49 12:49 WBC (4.8-10.8) K/uL RBC (4.7-6.1) M/uL Hgb (14.0-18.0) g/dL POC Hgb (14.0-18.0) g/dl Hct (42-52) % POC Hct (42-52) % MCV (80-100) fL MCH (25-34) pg MCHC (32-36) g/dL RDW Std Deviation (36.4-46.3) fL RDW Coeff of Kaya (11.5-14.5) % Plt Count (130-400) K/uL MPV (7.4-10.4) fL Immature Gran % (Auto) % Neut % (Auto) % Lymph % (Auto) % [place]ingo % (Auto) % Eos % (Auto) % Baso % (Auto) % Neut # (Auto) (1.4-6.5) K/uL Lymph # (Auto) (1.2-3.4) K/uL Mingo # (Auto) (0.11-0.59) K/uL Eos # (Auto) (0-0.5) K/uL Baso # (Auto) (0-0.2) K/uL Immature Gran # (Auto) (0.00-0.02) K/uL PT (9.0-12.0) Seconds INR (0.9-1.1) POC Sodium (135-144) mmol/L Sodium (136-145) mmol/L POC Potassium (3.3-5.0) mmol/L Potassium (3.5-5.1) mmol/L POC Chloride (101-112) mmol/L Chloride (98-107) mmol/L Carbon Dioxide (21-32) mmol/L POC Total CO2 (24-31) mmol/L Anion Gap (3-11) POC Anion Gap (16-25) mmol/L POC BUN (7-18) mg/dl BUN (6-23) mg/dl Creatinine (0.6-1.4) mg/dl POC Creatinine (0.6-1.3) mg/dl Est Cr Clr Drug Dosing Est GFR ( Amer) ml/min Est GFR (Non-Af Amer) ml/min BUN/Creatinine Ratio (10-20) Glucose (70-99(Fasting)) mg/dl POC Glucose (other) (70-99) mg/dl Lactate 4.9 H* (0.4-2.0) mmol/L Calcium (8.5-10.1) mg/dl POC Ioniz Calcium Kuldeep (1.12-1.32) mmol/l Magnesium (1.7-2.4) mg/dl Total Bilirubin (0.2-1.0) mg/dl AST (13-39) U/L ALT (7-52) U/L Alkaline Phosphatase (34-104) U/L Total Creatine Kinase (30-223) U/L Troponin I High Sens (0-20) pg/ml Total Protein (6.0-8.3) gm/dl Albumin (3.4-5.0) gm/dl Globulin (2.5-4.0) gm/dl Albumin/Globulin Ratio (0.9-2) Lipase 16 (11-82) U/L Procalcitonin (0-0.5) ng/ml TSH (0.300-4.500) uIu/ml Prolactin ng/ml Urine Color Urine Appearance (Clear) Urine pH (4.5-7.5) Ur Specific [place] (1.000-1.030) Urine Protein (Negative) Urine Glucose (UA) (Negative) Urine Ketones (Negative) Urine Blood (Negative) Urine Nitrite (Negative) Urine Bilirubin (Negative) Urine Urobilinogen (Negative) Ur Leukocyte Esterase (Negative) Ethyl Alcohol mg/dL (<10.0) mg/dl SARS-CoV-2, RNA, NAAT (NEGATIVE) Administered Medications Discontinued Medications Sodium Chloride (Nss 1000ml) 1,000 mls @ 999 mls/hr IV .Q1H1M ONE Stop: 05/29/21 11:58 Last Infusion: 05/29/21 12:20 Dose: 0 mls/hr Documented by: [id number] Admin: 05/29/21 11:25 Dose: 999 mls/hr Documented by: [id number] Levetiracetam 1,000 mg/ Sodium (Chloride) 110 mls @ 440 mls/hr IV NOW STA Stop: 05/29/21 12:00 Last Infusion: 05/29/21 12:11 Dose: 0 mls/hr Documented by: [id number] Admin: 05/29/21 11:57 Dose: 440 mls/hr Documented by: [id number] Ceftriaxone Sodium (Rocephin) 2,000 mg in 70 mls @ 140 mls/hr IV NOW STA Stop: 05/29/21 12:44 Last Infusion: 05/29/21 12:46 Dose: 0 mls/hr Documented by: [id number] Admin: 05/29/21 12:22 Dose: 140 mls/hr Documented by: [id number] Sodium Chloride (Nss) 500 mls @ 999 mls/hr IV .Q31M ONE Stop: 05/29/21 12:45 Last Infusion: 05/29/21 13:04 Dose: 0 mls/hr Documented by: [id number] Admin: 05/29/21 12:22 Dose: 999 mls/hr Documented by: [id number] Sodium Chloride (Nss 1000ml) 1,000 mls @ 999 mls/hr IV .Q1H1M ONE Stop: 05/29/21 13:15 Last Infusion: 05/29/21 13:04 Dose: 0 mls/hr Documented by: [id number] Admin: 05/29/21 12:22 Dose: 999 mls/hr Documented by: [id number] Magnesium Sulfate/Dextrose (Magnesium Sulfate / D5w) 1 gm in 100 mls @ 200 mls/hr IV Q30M JUAN Stop: 05/29/21 13:29 Last Infusion: 05/29/21 14:43 Dose: 0 mls/hr Documented by: [id number] Admin: 05/29/21 13:39 Dose: 200 mls/hr Documented by: [id number] Infusion: 05/29/21 13:34 Dose: 200 mls/hr Documented by: [id number] Admin: 05/29/21 13:04 Dose: 200 mls/hr Documented by: [id number] Ioversol (Optiray 320 125ml) 120 ml IV ONCE ONE Stop: 05/29/21 11:31 Last Admin: 05/29/21 11:30 Dose: 120 ml Documented by: [id number] Miscellaneous (Rapid Sequence Induction Bag) Confirm Administered Dose 1 ea .ROUTE .STK-MED ONE Stop: 05/29/21 10:53 Last Admin: 05/29/21 12:03 Dose: Not Given Documented by: [id number] Imaging Data Radiologist's Impression: Cervical Spine CT 05/29/21 10:50 CT cervical spine wo con CLINICAL HISTORY: ams, seizure, ?fall, recent surgery COMPARISON STUDY: No previous studies for comparison. CT DOSE: TECHNIQUE: Standard CT of the Cervical Spine was performed without IV contrast. A dose lowering technique was utilized adhering to the principles of ALARA. FINDINGS: Endotracheal tube is at the C2 level and should be further advanced into the trachea. Bones: The bones are osteopenic. There is an exaggerated cervical lordosis. The patient is status post anterior plate and screw fixation at C4-5. Disc spacers in place. There is no evidence for an acute fracture or malalignment. There is evidence for old wedge deformity of C7. The heights of the remaining cervical vertebral bodies are maintained. The vertebral bodies are in anatomic alignment. The odontoid is intact. Degenerative changes are seen at the atlantoaxial articulation. Disc spaces: Moderate to marked disc space narrowing is seen at C3/4 and C5-6, disc space levels above and below the spinal fusion. Apophyseal joints: Degenerative apophyseal joint disease is also present bilaterally. Soft tissues: The prevertebral soft tissues are within normal limits. IMPRESSION: 1. Tip of endotracheal tube at C2 and should be further advanced into the trachea. 2. Osteopenia with old compression fracture of C7. 3. Degenerative disc and degenerative joint disease. 4. Previous internal fixation. ACT 112: Negative or not required by law. Electronically signed by: Chapito Ruano M.D. 05/29/2021 11:44 AM Chest X-Ray 05/29/21 10:50 XR chest 1V portable CLINICAL HISTORY: ams. Evaluate cardiopulmonary status COMPARISON STUDY: 03/04/2021 TECHNIQUE: 1 view of the chest FINDINGS: Single frontal view of the chest demonstrates the cardiomediastinal silhouette to be within normal limits. There is a decreased inspiratory effort with elevation of the hemidiaphragms and crowding of the bronchovascular markings at the lung bases and centrally. The lungs are clear of alveolar opacities. There is no evidence for pleural effusion. There is no evidence for vascular congestion. There is no acute osseous pathology. IMPRESSION: 1. There is a decreased inspiratory effort with otherwise no acute chest disease. ACT 112: Negative or not required by law. Electronically signed by: Chapito Ruano M.D. 05/29/2021 12:[address] 05/29/21 10:50 CT head/brain wo con CLINICAL HISTORY: ams, seizure, ?fall COMPARISON STUDY: No previous studies for comparison. CT DOSE: TECHNIQUE: Standard CT of the Brain was performed without IV contrast. A dose lowering technique was utilized adhering to the principles of ALARA. FINDINGS: Extraaxial space: There is no evidence for subdural hematoma. There are no extra-axial fluid collections. Ventricles and cisterns: The ventricles are mildly dilated bilaterally. There is no evidence for midline shift or mass effect. Parenchyma: There is no subarachnoid or intraparenchymal hemorrhage. There is no evidence for an acute infarct or cerebral edema. There is mild cerebral cortical atrophy and decreased attenuation in the periventricular white matter representing remote small vessel disease. There are no gross mass lesions. Osseous structures: There is no evidence for an acute fracture. The visualized paranasal sinuses are clear. The mastoid air cells are clear bilaterally. Soft tissues: There is no evidence for focal soft tissue swelling. The patient is status post intubation. IMPRESSION: 1. No acute intracerebral pathology. 2. Cerebral cortical atrophy and remote small vessel disease. ACT 112: Negative or not required by law. Electronically signed by: Chapito Ruano M.D. 05/29/2021 11:39 AM Head CTA 05/29/21 10:58 CT angio head w con CLINICAL HISTORY: ams, seizure COMPARISON STUDY: CT brain without contrast from 05/29/2021 CT DOSE: 2207.29 mGy.cm TECHNIQUE: CT Angio of the brain was performed.followed by image post processing with coronal, and sagittal MIP reformats. Contrast Volume: Optiray 320, 120 ml FINDINGS: Vascular findings: There is normal enhancement within the internal carotid arteries bilaterally. There is normal enhancement noted within the anterior, middle and posterior cerebral arteries. Nonvascular findings: There is mild cerebral cortical atrophy and decreased attenuation in the periventricular white matter representing remote small vessel disease. There is no evidence for an acute infarct or cerebral edema. IMPRESSION: Essentially negative CT angiogram of the brain with contrast. ACT 112: Negative or not required by law. Electronically signed by: Chapito Ruano M.D. 05/29/2021 11:47 AM Neck CTA 05/29/21 10:58 CT angio neck with con CLINICAL HISTORY: ams, seizure COMPARISON STUDY: No previous studies for comparison. CT DOSE: TECHNIQUE: CT Angio of the neck was performed.followed by image post processing with coronal, and sagittal MIP reformats.. Stenosis assessment by NASCCoby shabazz. Contrast Volume: Optiray 320, 120 ml FINDINGS: Vascular findings: Right common carotid artery: There is a large calcified and noncalcified plaque at the carotid bulb with evidence for 80-90% stenosis present. Right internal carotid artery: The large thrombus extends into the origin of the right internal carotid artery with 80-90% stenosis present as well.. Right vertebral artery: Patent without significant stenosis. Left common carotid artery: There is a large calcified and noncalcified plaque at the carotid bulb with evidence for 70-80% stenosis present. Left internal carotid artery: The large thrombus extends into the origin of the left internal carotid artery with approximately 80-90% stenosis present as well.. Left vertebral artery: Patent without significant stenosis. Nonvascular findings: The parotid and submandibular salivary glands appear normal. There is no enlarged cervical adenopathy noted. The airway appears patent. The thyroid gland appears within normal limits. The lung apices appear within normal limits.There is again an endotracheal tube in place with its tip at the C2 level. It should be further advanced. Impression: 1. Large calcified and noncalcified plaques involving the carotid bulbs and internal carotid arteries bilaterally with 80-90% stenosis of the proximal internal carotid arteries bilaterally. 2. Endotracheal tube ending at the C2 level which should be further advanced into the trachea. ACT 112: Negative or not required by law. Electronically signed by: Chapito Ruano M.D. 05/29/2021 11:54 AM Abdomen/Pelvis CT 05/29/21 12:48 CT abd pelvis wo con CLINICAL HISTORY: elev lfts, ams,elev lactase. Patient found unresponsive COMPARISON STUDY: No previous studies for comparison. CT DOSE: 299.46 mGy.cm TECHNIQUE: Standard CT of the Abdomen and Pelvis was performed without IV contrast. The patient did not receive oral contrast. A dose lowering technique was utilized adhering to the principles of ALARA. FINDINGS: Lung base: The lung bases are clear. Cardiac calcification is present. Abdominal cavity: There is no evidence for abdominal mass, adenopathy or asci jess. Liver: The liver is homogeneous in attenuation on these limited noncontrast images.. Spleen: The spleen is homogeneous in attenuation on these limited noncontrast images. Pancreas: The pancreas is homogeneous in attenuation on these limited noncontrast images. Gall Bladder: The gallbladder is distended with increased attenuation debris lung dependent portion of gallbladder characteristic of sludge. Small stones cannot be excluded. Adrenal glands: The adrenal glands are normal in size and attenuation on these limited noncontrast images. Kidneys: The kidneys are homogeneous in attenuation on these limited noncontrast images. Is evidence of bilateral nonobstructing renal calculi. No hydronephrosis identified. 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 Bowel: The bowel loops are normally placed within the abdomen and pelvis without evidence for dilatation or obstruction. There is mild to moderate fecal impaction of the rectosigmoid colon. There is no obstruction of the more proximal colonic loops. There are no inflammatory changes present. There is no evidence for free air. Bladder: Calix catheter is in place. : There is no evidence for pelvic mass or adenopathy. Vasculature: There is no evidence for focal aneurysmal dilatation of the abdominal aorta. Atherosclerotic calcification is present. Osseous structures: There is no acute osseous pathology. Degenerative changes are seen within the spine. IMPRESSION: 1. Mild to moderate fecal impaction in the rectosigmoid colon with no evidence for obstruction of the more proximal colon. 2. Distended gallbladder with evidence for sludge along the dependent portion of the gallbladder. 3. No other evidence for acute intra-abdominal pelvic abnormality. 4. Additional nonacute findings are delineated above. ACT 112: Negative or not required by law. Electronically signed by: Chapito Ruano M.D. 05/29/2021 1:49 PM Discharge Plan Visit Data Chief Complaint: Neuro Symptoms/Deficit Stated Complaint: UNRESPONESIVE, SEIZURE, FALL ED Provider: Augusto Love Discharge Problem: AMS (altered mental status), Seizure, Elevated lactic acid level, Elevated troponin I level Patient Disposition: Admitted As Inpatient Discharge Instructions Interventions: ED Discharge Assessment Last Done: 05/29/21 14:15 Discharge Problem: AMS (altered mental status) Qualifiers: Altered mental status type: unspecified Qualified Code(s): R41.82 - Altered mental status, unspecified
[2021-05-29 11:16] LABS: iSTAT Creatinine 0.9 mg/dl (0.6-1.3); iSTAT Hemoglobin 15.3 g/dl (14.0-18.0); iSTAT Ionized Calcium 1.09 mmol/l (1.12-1.32); iSTAT Potassium 3.9 mmol/L (3.3-5.0)
[2021-05-29] MEDS ORDERED: OPTIRAY 320 125ml IV ONE (11:30)
[2021-05-29 11:33] LABS: Hematocrit (blood only) 42.8 % (42-52); Hemoglobin 14.1 g/dL (14.0-18.0); Mean Corpuscular Hemoglobin 34.2 pg (25-34); Mean Corpuscular Hgb Conc 32.9 g/dL (32-36); Mean Corpuscular Volume 103.9 fL (80-100); Mean Platelet Volume 9.8 fL (7.4-10.4); Platelet Count 697 K/uL (130-400); RDW Standard Deviation 60.9 fL (36.4-46.3); Red Blood Count 4.12 M/uL (4.7-6.1); White Blood Count 26.23 K/uL (4.8-10.8)
--- NOTE | 2021-05-29 11:41 | CT Scan Report ---
CT head/brain wo con CLINICAL HISTORY: ams, seizure, ?fall COMPARISON STUDY: No previous studies for comparison. CT DOSE: TECHNIQUE: Standard CT of the Brain was performed without IV contrast. A dose lowering technique was utilized adhering to the principles of ALARA. FINDINGS: Extraaxial space: There is no evidence for subdural hematoma. There are no extra-axial fluid collecti ons. Ventricles and cisterns: The ventricles are mildly dilated bilaterally. There is no evidence for midl ine shift or mass effect. Parenchyma: There is no subarachnoid or intraparenchymal hemorrhage. There is no evidence for an acut e infarct or cerebral edema. There is mild cerebral cortical atrophy and decreased attenuation in the periventricular white matter representing remote small vessel disease. There are no gross mass lesio ns. Osseous structures: There is no evidence for an acute fracture. The visualized paranasal sinuses are clear. The mastoid air cells are clear bilaterally. Soft tissues: There is no evidence for focal soft tissue swelling. The patient is status post intubat ion. IMPRESSION: 1. No acute intracerebral pathology. 2. Cerebral cortical atrophy and remote small vessel disease. ACT 112: Negative or not required by law. Electronically signed by: Chapito Ruano M.D. 05/29/2021 11:39 AM
[2021-05-29 11:46] LABS: INR 1.2 (0.9-1.1); Prothrombin Time 12.2 Seconds (9.0-12.0)
[2021-05-29] MEDS ORDERED: levETIRAcetam 1,000 MG in 0.9 % SODIUM CHLORIDE 100 ML IV STA (11:46)
--- NOTE | 2021-05-29 11:46 | CT Scan Report ---
CT cervical spine wo con CLINICAL HISTORY: ams, seizure, ?fall, recent surgery COMPARISON STUDY: No previous studies for comparison. CT DOSE: TECHNIQUE: Standard CT of the Cervical Spine was performed without IV contrast. A dose lowering jean hnique was utilized adhering to the principles of ALARA. FINDINGS: Endotracheal tube is at the C2 level and should be further advanced into the trachea. Bones: The bones are osteopenic. There is an exaggerated cervical lordosis. The patient is status pos t anterior plate and screw fixation at C4-5. Disc spacers in place. There is no evidence for an acute fracture or malalignment. There is evidence for old wedge deformity of C7. The heights of the remain ing cervical vertebral bodies are maintained. The vertebral bodies are in anatomic alignment. The odo ntoid is intact. Degenerative changes are seen at the atlantoaxial articulation. Disc spaces: Moderate to marked disc space narrowing is seen at C3/4 and C5-6, disc space levels abov e and below the spinal fusion. Apophyseal joints: Degenerative apophyseal joint disease is also present bilaterally. Soft tissues: The prevertebral soft tissues are within normal limits. IMPRESSION: 1. Tip of endotracheal tube at C2 and should be further advanced into the trachea. 2. Osteopenia with old compression fracture of C7. 3. Degenerative disc and degenerative joint disease. 4. Previous internal fixation. ACT 112: Negative or not required by law. Electronically signed by: Chapito Ruano M.D. 05/29/2021 11:44 AM
--- NOTE | 2021-05-29 11:49 | CT Scan Report ---
CT angio head w con CLINICAL HISTORY: ams, seizure COMPARISON STUDY: CT brain without contrast from 05/29/2021 CT DOSE: 2207.29 mGy.cm TECHNIQUE: CT Angio of the brain was performed.followed by image post processing with coronal, and s agittal MIP reformats. Contrast Volume: Optiray 320, 120 ml FINDINGS: Vascular findings: There is normal enhancement within the internal carotid arteries bilaterally. The re is normal enhancement noted within the anterior, middle and posterior cerebral arteries. Nonvascular findings: There is mild cerebral cortical atrophy and decreased attenuation in the perive ntricular white matter representing remote small vessel disease. There is no evidence for an acute in farct or cerebral edema. IMPRESSION: Essentially negative CT angiogram of the brain with contrast. ACT 112: Negative or not required by law. Electronically signed by: Chapito Ruano M.D. 05/29/2021 11:47 AM
[2021-05-29 11:55] LABS: Appearance Urine Clear (Clear); Bilirubin Urine Negative (Negative); Blood Urine Negative (Negative); Color Urine Yellow; Glucose Urine UA Negative (Negative); Ketones Urine Negative (Negative); Leukocyte Esterase Urine Negative (Negative); Nitrite Urine Negative (Negative); Protein Urine Negative (Negative); Specific Gravity Urine 1.041 (1.000-1.030); Urobilinogen Urine Negative (Negative); pH Urine 8.5 (4.5-7.5)
--- NOTE | 2021-05-29 11:56 | CT Scan Report ---
CT angio neck with con CLINICAL HISTORY: ams, seizure COMPARISON STUDY: No previous studies for comparison. CT DOSE: TECHNIQUE: CT Angio of the neck was performed.followed by image post processing with coronal, and sa gittal MIP reformats.. Stenosis assessment by NASCET criteria. Contrast Volume: Optiray 320, 120 ml FINDINGS: Vascular findings: Right common carotid artery: There is a large calcified and noncalcified plaque at the carotid bulb w ith evidence for 80-90% stenosis present. Right internal carotid artery: The large thrombus extends into the origin of the right internal carot id artery with 80-90% stenosis present as well.. Right vertebral artery: Patent without significant stenosis. Left common carotid artery: There is a large calcified and noncalcified plaque at the carotid bulb wi th evidence for 70-80% stenosis present. Left internal carotid artery: The large thrombus extends into the origin of the left internal carotid artery with approximately 80-90% stenosis present as well.. Left vertebral artery: Patent without significant stenosis. Nonvascular findings: The parotid and submandibular salivary glands appear normal. There is no enlarged cervical adenopathy noted. The airway appears patent. The thyroid gland appears within normal limits. The lung apices ap pear within normal limits.There is again an endotracheal tube in place with its tip at the C2 level. It should be further advanced. Impression: 1. Large calcified and noncalcified plaques involving the carotid bulbs and internal carotid arteries bilaterally with 80-90% stenosis of the proximal internal carotid arteries bilaterally. 2. Endotracheal tube ending at the C2 level which should be further advanced into the trachea. ACT 112: Negative or not required by law. Electronically signed by: Chapito Ruano M.D. 05/29/2021 11:54 AM
[2021-05-29 11:57] LABS: Basophils # (auto) 0.06 K/uL (0-0.2); Basophils % (auto) 0.2 %; Eosinophils # (auto) 0.01 K/uL (0-0.5); Immature Granulocytes # (auto) 0.12 K/uL (0.00-0.02); Immature Granulocytes % (auto) 0.5 %; Lymphocytes # (auto) 0.33 K/uL (1.2-3.4); Lymphocytes % (auto) 1.3 %; Monocytes # (auto) 0.92 K/uL (0.11-0.59); Monocytes % (auto) 3.5 %; Neutrophils # (auto) 24.79 K/uL (1.4-6.5); Neutrophils % (auto) 94.5 %
[2021-05-29 12:10] LABS: Alanine Aminotransferase 178 U/L (7-52); Albumin Globulin Ratio 1.2 (0.9-2); Albumin Level 3.5 gm/dl (3.4-5.0); Alkaline Phosphatase 271 U/L (34-104); Anion Gap 17 (3-11); Aspartate Aminotransferase 197 U/L (13-39); BUN Creatinine Ratio 7.8 (10-20); Bilirubin,Total 0.8 mg/dl (0.2-1.0); Blood Urea Nitrogen 8 mg/dl (6-23); Calcium 9.2 mg/dl (8.5-10.1); Carbon Dioxide 21 mmol/L (21-32); Chloride 101 mmol/L (98-107); Creatine Kinase 67 U/L (30-223); Est GFR (African American) 84.3 ml/min; Est GFR (Non-African American) 72.7 ml/min; Glucose 152 mg/dl (70-99(Fasting)); Magnesium 1.5 mg/dl (1.7-2.4); Potassium 3.9 mmol/L (3.5-5.1); Sodium 139 mmol/L (136-145); Total Protein 6.5 gm/dl (6.0-8.3)
[2021-05-29] MEDS ORDERED: cefTRIAXone SODIUM 2,000 MG/70 ML BAG IV STA (12:15)
[2021-05-29] MEDS ORDERED: SODIUM CHLORIDE 0.9% 500 ML IV ONE (12:15)
--- NOTE | 2021-05-29 12:28 | XRay Report ---
XR chest 1V portable CLINICAL HISTORY: ams. Evaluate cardiopulmonary status COMPARISON STUDY: 03/04/2021 TECHNIQUE: 1 view of the chest FINDINGS: Single frontal view of the chest demonstrates the cardiomediastinal silhouette to be within normal li mits. There is a decreased inspiratory effort with elevation of the hemidiaphragms and crowding of th e bronchovascular markings at the lung bases and centrally. The lungs are clear of alveolar opacities . There is no evidence for pleural effusion. There is no evidence for vascular congestion. There is n o acute osseous pathology. IMPRESSION: 1. There is a decreased inspiratory effort with otherwise no acute chest disease. ACT 112: Negative or not required by law. Electronically signed by: Chapito Ruano M.D. 05/29/2021 12:26 PM
[2021-05-29] MEDS: MAGNESIUM SULFATE / D5W 1 GM/100 ML BAG IV SCH ×2 (13:04→13:39)
[2021-05-29] MEDS ORDERED: PIPERACILL/TAZOBAC CONSULT ACTIVE PRN (13:43)
[2021-05-29] MEDS ORDERED: VANCOMYCIN CONSULT ACTIVE PRN (13:43)
--- NOTE | 2021-05-29 13:51 | CT Scan Report ---
CT abd pelvis wo con CLINICAL HISTORY: elev lfts, ams,elev lactase. Patient found unresponsive COMPARISON STUDY: No previous studies for comparison. CT DOSE: 299.46 mGy.cm TECHNIQUE: Standard CT of the Abdomen and Pelvis was performed without IV contrast. The patient did not receive oral contrast. A dose lowering technique was utilized adhering to the principles of ABDULLAHI Pena. FINDINGS: Lung base: The lung bases are clear. Cardiac calcification is present. Abdominal cavity: There is no evidence for abdominal mass, adenopathy or ascites. Liver: The liver is homogeneous in attenuation on these limited noncontrast images.. Spleen: The spleen is homogeneous in attenuation on these limited noncontrast images. Pancreas: The pancreas is homogeneous in attenuation on these limited noncontrast images. Gall Bladder: The gallbladder is distended with increased attenuation debris lung dependent portion o f gallbladder characteristic of sludge. Small stones cannot be excluded. Adrenal glands: The adrenal glands are normal in size and attenuation on these limited noncontrast im ages. Kidneys: The kidneys are homogeneous in attenuation on these limited noncontrast images. Is evidence of bilateral nonobstructing renal calculi. No hydronephrosis identified. 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 Bowel: The bowel loops are normally placed within the abdomen and pelvis without evidence for dilatat ion or obstruction. There is mild to moderate fecal impaction of the rectosigmoid colon. There is no obstruction of the more proximal colonic loops. There are no inflammatory changes present. There is n o evidence for free air. Bladder: Calix catheter is in place. : There is no evidence for pelvic mass or adenopathy. Vasculature: There is no evidence for focal aneurysmal dilatation of the abdominal aorta. Atheroscler otic calcification is present. Osseous structures: There is no acute osseous pathology. Degenerative changes are seen within the spi ne. IMPRESSION: 1. Mild to moderate fecal impaction in the rectosigmoid colon with no evidence for obstruction of the more proximal colon. 2. Distended gallbladder with evidence for sludge along the dependent portion of the gallbladder. 3. No other evidence for acute intra-abdominal pelvic abnormality. 4. Additional nonacute findings are delineated above. ACT 112: Negative or not required by law. Electronically signed by: Chapito Ruano M.D. 05/29/2021 1:49 PM
[2021-05-29 14:33] LABS: Amphetamines+Metham, Urine Neg (Neg); Barbiturates, Urine Neg (Neg); Benzodiazepine, Urine Neg (Neg); Cocaine, Urine Neg (Neg); MDMA (Ecstacy), Urine Neg (Neg); Methadone, Urine Neg (Neg); Opiate, Urine Neg (Neg); Phencyclidine, Urine Neg (Neg)
[2021-05-29] MEDS ORDERED: ICU PROTOCOL FOR HYPERGLYCEMIA PRN (14:43)
[2021-05-29] MEDS ORDERED: VANCOMYCIN HCL 2,000 MG in SODIUM CHLORIDE 0.9% 500 ML IV ONE (14:45)
[2021-05-29] MEDS ORDERED: PIPERACILLIN/TAZOBACTAM 3.375 GM in DEXTROSE 5% 100 ML IV ONE (15:00)
--- NOTE | 2021-05-29 15:10 | Pharmacy Report ---
Pharmacy Vanc AUC Short Note - Date of Service May 29, 2021 - Assessment & Plan Assessment 70 year old M admitted with sepsis, possible GI source, found unresponsive. Given IV Ceftriaxone in ER. Starting IV Vancomycin + Zosyn by hospital service. WBC, Lactate and procal elevated, BCs pending. UA does not appear infectious, CXR without pneumonia, COVID Neg. Alcohol and drug tox screen negative. Plan Vancomycin * AUC/FRANKLYN is the preferred PK/PD target for vancomycin * AUC guided dosing is effective and associated with decreased risk of nephrotoxicity compared to traditional trough targets * Vancomycin 2000mg IV x 1 dose, then 1000mg IV Q12H * This dose is predicted to achieve target AUC/FRANKLYN of 400-600 mg/L.hr and may be associated with a 19 % risk of nephrotoxicity * Trough level ordered for: 05/31/21 Zosyn 3.375g IV x1 dose over 30 min then 3.375g IV Q8H extended interval infusion for CrCl > 20ml/min Pharmacy will continue to follow and will adjust dose/frequency as necessary. Thank you.
[2021-05-29] MEDS ORDERED: PATIENT'S HEIGHT AND/OR WEIGHT NEEDED SCH (15:15)
--- NOTE | 2021-05-29 15:35 | Critical Care Consultation ---
Date of Consultation May 29, 2021 Assessment & Plan (1) Metabolic encephalopathy: (2) CAD (coronary artery disease): (3) AMS (altered mental status): (4) Chronic pain: (5) Elevated troponin I level: Reason Critically Ill: 70-year-old male past medical history of coronary artery disease, chronic pain, hypertension presented to hospital unresponsive. Patient in the ICU for metabolic encephalopathy Neuro - --Metabolic encephalopathy Etiology is not clear CT head, CT a head as well as CT cervical spine negative UDS negative, alcohol level negative, TSH within normal limits Sodium, calcium within normal limit Patient has a WBC count which is elevated in recent surgery and hospitalization possibility of sepsis is there Patient does have slow rolling nystagmus Seizure-like DVT cannot be ruled out --History of anxiety and depression Hold all antidepressant medication for the time being Cardiac - --Elevated troponin Likely secondary to type II AK EKG does not show any ST-T wave changes Follow-up 2D echo --Prolonged QT Avoid QT prolonging medications --Hypertension Patient cannot take anything by mouth We will give as needed IV medications --History of coronary artery disease Respiratory - --COPD Not on any liters at home Continue with as needed rescue inhalers GI - --Transaminitis with elevated alk phos With normal CPK Follow-up salicylate and acetaminophen level Continue to trend CT abdomen pelvis does not show any biliary dilatation RENAL/LYTES - -- HAGMA Delta-delta: 1.3, urine anion gap Likely sec to lactic acidosis Follow up serum osm, urine osm, urine lytes Monitor - Continue with Dowd, strict in and out ENDO - ICU hypoglycemia protocol HEME - --Microcytic anemia Likely from chronic alcohol abuse Continue to monitor ID - --Leukocytosis with thrombocythemia Left-sided shift Infection cannot be ruled out Procalcitonin 1.29 COVID-19 PCR negative Continue with broad-spectrum antibiotics vancomycin and Zosyn Meningitis cannot be ruled out. Patient is supposed to have MRI of the brain done CT abdomen pelvis showed possible sludge in the gallbladder. --Prophylaxis VTE: IPC GI: Protonix Lines: Peripheral, +ve dowd Diet: N.p.o. Plan: Patient with 2 L of LR in the ER. His lactate is trending down from 7-4.9. Continue with normal saline right now. Patient supposed to go for MRI of the brain. When he comes back from the MRI we will do lumbar puncture to make sure we are not dealing with encephalitis Given the slow nystagmus in the mental status possibility of patient being in seizures is there. Is already started on Keppra He is able to maintain his airway saturations 97% on room air. If he starts to desaturate then we will intubate the patient. Continue with vancomycin and Zosyn for the time being. We will consider adding ampicillin and/or acyclovir to cover for meningitis based on the MRI report and LP Follow-up 2D echo. Patient's baseline hemoglobin is around 10. He came in with hemoglobin of 14. I do think patient has significant volume depletion. We will repeat CBC and BMP later. Lab urine and serum osmolality, salicylate and acetaminophen level I have personally spent 63 minutes of critical care time in the direct marion gement of this patient. This is a life/limb threatening event. This includes time spent evaluating patient, direct bedside care, chart review, placing orders, interpretation of diagnostic studies, discussion with consultants, patient, and family members, as well as other required patient management activities. This time is exclusive of all separately billable procedures, and teaching time and separate from and in addition to any other critical care service time. History of Present Illness Attending Physician: Dilan Garcia MD History of Present Illness 70-year-old male presents to the hospital as he was found unresponsive in in his apartment by his sister Past medical history: Cervical radiculopathy s/p anterior cervical discectomy 05/04/2021, coronary artery disease, alcohol abuse, hypertension, history of mild cancer s/p chemo and radiation 2015 History was obtained from patient's sister, ER chart and previous admission and sign out from Berkley Ruiz Patient was seen in the ICU, his systolic blood pressure was in the 170s, saturation 97% on room air He was not following any commands RASS was -3. He had neck collar in place Patient was having slow nystagmus of bilateral eyes He did have slow jerking movement of the left upper extremity. No rashes appreciated on the body The surgical site looks clean. Head CT, head CTA was negative for any acute findings except for cerebral cortical atrophy EMS thought that the patient might have had seizure-like activity and he was given Keppra loading dose. Social history: Approximately [id number] smoking history quit in 2016 Allergies Allergy/AdvReac Type Severity Reaction Status Date / Time No Known Allergies Allergy Verified 05/29/21 14:40 Home Medications Medication Instructions Recorded Confirmed Type acetaminophen 325 mg tablet 650 mg PO TID 10/28/20 05/29/21 History (Tylenol) atorvastatin 40 mg tablet (Lipitor) 40 mg PO QAM 10/28/20 05/29/21 History gabapentin 800 mg tablet 800 mg PO TID 10/28/20 05/29/21 History methadone 10 mg tablet 10 mg PO BID PRN 10/28/20 05/29/21 History nortriptyline 10 mg capsule 10 mg PO HS 10/28/20 05/29/21 History (Pamelor) aspirin 81 mg tablet,delayed 81 mg PO DAILY 05/04/21 05/29/21 History release cevimeline 30 mg capsule 30 mg PO TID 05/29/21 05/29/21 History citalopram 20 mg tablet 20 mg PO DAILY 05/29/21 05/29/21 History docusate sodium 100 mg capsule 100 mg PO BID 05/29/21 05/29/21 History esomeprazole magnesium 40 mg 40 mg PO DAILY 05/29/21 05/29/21 History capsule,delayed release famotidine 20 mg tablet 20 mg PO DAILY PRN 05/29/21 05/29/21 History levothyroxine 112 mcg tablet 112 mcg PO DAILYBB 05/29/21 05/29/21 History Patient History Medical History Anemia CAD (coronary artery disease) 2010- [facility] showed patent LAD and LCX stents, mild RCA disease per cardio records [place]- approx 15 years ago, total of 4 stents over time- most recent stent [address] 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 Decker in [place] Surgical History H/O hand surgery "L hand traumatic injury repair around 1995" Hx of cardiac cath heart attack 15 years, total of [address] Chaney in [place] Hx of colonoscopy Family History (Updated 05/04/21 @ 16:35 by Cristal Kilpatrick PA-C) Mother Hypothyroidism Father Heart disease Social History Smoking Status: Former smoker Second Hand Exposure: No; Hx Alcohol Use: Yes Alcohol type: hard liquor Hx Substance Use: No Preferred Language: Tajik Communication Ability: Effective Central Processing Tech Required: No Beliefs That Will Affect Care: None Current Living Situation: Alone Current Living Situation Comment: Unsafe situation Other Information That Helps Us Care for You: No Feels Safe at Home: No Is there a partner from a previous relationship who is making you feel unsafe now?: No Any Concerns about Your Family Situation: No Would You Like to Speak to Someone About Your Situation: No Assistive Devices: Cane and Glasses Review of Systems Review of Systems: Unobtainable due to mental health condition and Unobtainable due to reduced consciousness Physical Exam Physical Exam: Constitutional: No acute distress HEENT: Sluggish pupillary response, neck collar in place, incision site is clean, slow rolling nystagmus Respiratory system: Decreased air entry bilaterally, no wheeze, rhonchi, mild crackles bilaterally CVS: S1-S2 positive, no murmurs or gallops Abdomen: Soft, nontender, nondistended, positive bowel sounds x4 Extremities: +2 pulses bilaterally radialis/ dorsalis pedis, no cyanosis, no edema Neuro: Somnolent, not following any commands, GCS 5, cogwheel rigidity of the right upper extremity Psych: Unable to assess G/U: Positive Dowd Skin: no rashes, warm and dry Lymphatic: no cervical or axillary lymphadenopathy Results & Data Results & Data ([facility]) Vital Signs (Past 12 Hours) Vital Signs Temp Pulse Pulse Resp BP BP Pulse Ox 05/29/21 14:00 95 H 14 159/100 H 97 05/29/21 13:30 98 H 16 166/104 H 98 05/29/21 13:00 102 H 14 160/96 H 96 05/29/21 12:30 105 H 16 163/99 H 98 05/29/21 12:00 98 H 14 161/97 H 98 05/29/21 11:30 98 H 16 165/99 H 98 05/29/21 10:53 37.4 C 108 H 16 162/87 H 96 Laboratory Results 05/29/21 11:09 05/29/21 11:09 Coding Level of Care Code Critical Care 1st 30-74 mins Diagnoses Metabolic encephalopathy G93.41 CAD (coronary artery disease) I25.10 AMS (altered mental status) R41.82 Altered mental status type: unspecified Chronic pain G89.29 Elevated troponin I level R77.8 Time Spent (min) 63 (1) AMS (altered mental status) Altered mental status type: unspecified Qualified Code(s): R41.82 - Altered mental status, unspecified
[2021-05-29] MEDS ORDERED: MIDAZOLAM HCL 1 MG/ML 2ML VIAL IM STA (15:36)
--- NOTE | 2021-05-29 15:51 | History & Physical Report ---
Date of Service May 29, 2021 Assessment & Plan (1) Metabolic encephalopathy: Plan: Admit to ICU Patient presenting from home after he was found unresponsive on the floor by his sister. History unobtainable from the patient. Recently admitted to [facility] 05/04 through 05/06 for elective ACDF by Dr. Allen. Reportedly, patient was admitted to [facility] last weekend for altered mental status and UTI. While en route to the ED, EMS reported seizure like activity. History of chronic alcohol use, per friend last drink on 05/20. Head CT, head and neck CTAs unremarkable for acute findings S/p Keppra 1 g in ED, continue with Keppra 500 mg twice daily Brain MRI EEG LP to performed by ICU Case discussed with Dr. Cao POSSIBLE SEPSIS WBC 26K. Initial lactate 7.2 --> 4.9. BP stable, afebrile Given recent neck surgery, LP to be performed by ICU Blood cultures Continue IVF, trend lactate Received IV ceftriaxone in the ED. Will start broad-spectrum antibiotics with IV Vanco and Zosyn, de-escalate as able May need to add ampicillin and/or valacyclovir pending LP results (2) CAD (coronary artery disease): (3) Elevated troponin I level: Plan: Remote history of CAD with stents being placed many years ago. Follows with Dr. Decker in [place]. HS trop [address] changes Echo obtained showed apical wall hypokinesis,normal EF - discussed with nry, possibly stressed induced, ischemia cannot be ruled out Hold on IV heparin at this time due to LP Trend troponin Cardiology consult (4) Elevated LFTs: Plan: T bili 0.8, AST 127, ALT 178, alk phos 271 CT ABD/pelvis showed sludge in the gallbladder however no CBD Consider MRCP GI and general surgery consults (5) Carotid stenosis: Plan: CTA neck noted Large calcified and noncalcified plaques involving the carotid bulbs and internal carotid arteries bilaterally with 80-90% stenosis of the proximal internal carotid arteries bilaterally Will need follow-up Resume ASA and statin when able to take p.o. (6) H/O neck surgery: Plan: S/p ACDF C4-C5 by Dr. Allen on 05/04 (7) Chronic pain: Plan: Noted on methadone therapy (8) DVT prophylaxis: Plan: SQ Lovenox Admission and Anticipated Discharge Date Admission Date: May 29, 2021 History of Present Illness Chief Complaint: Altered Mental Status Primary Care Provider: Los Sheehan 70 year old male with PMH CAD, mouth cancer s/p chemo and radiation, chronic pain on methadone, HTN, HLD, hypothyroidism, and other problems below who presents to the ED for evaluation of altered mental status. Due to patient's current mental state, history is unobtainable from him. History obtained from previous hospitalization and ED documentation. Patient recently admitted to [facility] 05/04 through 05/06 for elective ACDF C4-C5 by Dr. Allen on 05/04. Spoke with patient's maintenance person, Freddie, over the telephone. He states that he is a friend of the patient's and checks in on him frequently. Freddie states that the patient has not been himself since returning home from the hospital. He reports that he has been having episodes of hallucinations and confusion. States that the patient was admitted to [facility] last weekend for UTI. He was discharged home this previous Monday. Freddie also states the patient has history of chronic alcohol use. He is unsure of how much the patient is drinking however states that he believes that patient has not had a drink since 05/20. Patient sister flew in from [place] to help take care of the patient. She reportedly found him down on the ground this morning. EMS was called. While in route to the ED, EMS reported seizure-like activity. Patient received Ativan 2 mg IV. In the ED, patient's vitals are stable however he remains only responsive to painful stimuli. He does not follow commands. Labs show WBC 26K, initial lactate 7.2, AST 197, ALT 178, alk phos 271, troponin I 54, procalcitonin 1.29. EKG without acute ST changes. Head CT and head and neck CTAs unremarkable for acute findings. Patient was given IV ceftriaxone, IV Keppra 1 g, magnesium replacement, IVF. Allergies Allergy/AdvReac Type Severity Reaction Status Date / Time No Known Allergies Allergy Verified 05/29/21 14:40 Home Medications Medication Instructions Recorded Confirmed Type acetaminophen 325 mg tablet 650 mg PO TID 10/28/20 05/29/21 History (Tylenol) atorvastatin 40 mg tablet (Lipitor) 40 mg PO QAM 10/28/20 05/29/21 History gabapentin 800 mg tablet 800 mg PO TID 10/28/20 05/29/21 History methadone 10 mg tablet 10 mg PO BID PRN 10/28/20 05/29/21 History nortriptyline 10 mg capsule 10 mg PO HS 10/28/20 05/29/21 History (Pamelor) aspirin 81 mg tablet,delayed 81 mg PO DAILY 05/04/21 05/29/21 History release cevimeline 30 mg capsule 30 mg PO TID 05/29/21 05/29/21 History citalopram 20 mg tablet 20 mg PO DAILY 05/29/21 05/29/21 History docusate sodium 100 mg capsule 100 mg PO BID 05/29/21 05/29/21 History esomeprazole magnesium 40 mg 40 mg PO DAILY 05/29/21 05/29/21 History capsule,delayed release famotidine 20 mg tablet 20 mg PO DAILY PRN 05/29/21 05/29/21 History levothyroxine 112 mcg tablet 112 mcg PO DAILYBB 05/29/21 05/29/21 History Past Med/Surg History Medical History (Updated 05/29/21 @ 16:48 by RHIANNON Flanagan) Anemia CAD (coronary artery disease) 2010- [facility] showed patent LAD and LCX stents, mild RCA disease per cardio records [place]- approx 15 years ago, total of 4 stents over time- most recent stent [address] 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 Decker in [place] Surgical History (Updated 05/29/21 @ 16:38 by RHIANNON Flanagan) H/O hand surgery "L hand traumatic injury repair around 1995" H/O neck surgery Hx of cardiac cath heart attack 15 years, total of [address] Chaney in [place] Hx of colonoscopy Family History Mother Hypothyroidism Father Heart disease Social History Smoking Status: Former smoker Second Hand Exposure: No; Hx Alcohol Use: Yes Alcohol type: hard liquor Hx Substance Use: No Preferred Language: Khmer Communication Ability: Effective Visitor Services Coordinator Required: No Beliefs That Will Affect Care: None Current Living Situation: Alone Current Living Situation Comment: Unsafe situation Other Information That Helps Us Care for You: No Feels Safe at Home: No Is there a partner from a previous relationship who is making you feel unsafe now?: No Any Concerns about Your Family Situation: No Would You Like to Speak to Someone About Your Situation: No Assistive Devices: Cane and Glasses Review of Systems Review of Systems: Unobtainable due to reduced consciousness Physical Exam Constitutional: + ill appearing and + thin; no acute distress Eyes: PERRL, conjunctivae normal, anicteric sclerae ENMT: external ear and nose normal, oropharynx normal Respiratory: normal respiratory effort, lungs clear to auscultation Cardiovascular: Rate/Rhythm: regular rhythm and + tachycardic Vessels: normal peripheral pulses Extremities: no edema Gastrointestinal (Abdomen): normal bowel sounds, soft, nontender, no hepatosplenomegaly Musculoskeletal: S/p recent neck surgery, anterior surgical incision CDI, cervical collar in place Skin: no rashes, warm and dry Scattered ecchymosis in various stages of healing Neurologic: Responsive only to painful stimuli, does not follow commands, no purposeful movement Psychiatric: Orientation: + not alert Results & Data Results & Data ([place]) Vital Signs (Past 12 Hours) Vital Signs Temp Pulse Pulse Resp BP BP Pulse Ox 05/29/21 14:00 95 H 14 159/100 H 97 05/29/21 13:30 98 H 16 166/104 H 98 05/29/21 13:00 102 H 14 160/96 H 96 05/29/21 12:30 105 H 16 163/99 H 98 05/29/21 12:00 98 H 14 161/97 H 98 05/29/21 11:30 98 H 16 165/99 H 98 05/29/21 10:53 37.4 C 108 H 16 162/87 H 96 Laboratory Results Short CBC 05/29/21 05/29/21 05/29/21 Range/Units 11:09 11:09 12:49 WBC 26.23 H (4.8-10.8) K/uL Hgb 14.1 (14.0-18.0) g/dL Hct 42.8 (42-52) % Plt Count 697 H (130-400) K/uL Lactate 7.2 H* 4.9 H* (0.4-2.0) mmol/L [facility] 05/29/21 11:09 Sodium 139 Potassium 3.9 Chloride 101 Carbon Dioxide 21 BUN 8 Creatinine 1.03 Glucose 152 H Calcium 9.2 Cardiac Enzymes 05/29/21 Range/Units 11:09 Total Creatine Kinase 67 (30-223) U/L Liver Function 05/29/21 Range/Units 11:09 Total Bilirubin 0.8 (0.2-1.0) mg/dl AST 197 H (13-39) U/L ALT 178 H (7-52) U/L Alkaline Phosphatase 271 H (34-104) U/L Albumin 3.5 (3.4-5.0) gm/dl Urine 05/29/21 Range/Units 11:35 Urine Color Yellow Urine Appearance Clear (Clear) Urine pH 8.5 H (4.5-7.5) Ur Specific [place] 1.041 H (1.000-1.030) Urine Protein Negative (Negative) Urine Glucose (UA) Negative (Negative) Diagnostic Findings Short CBC 05/29/21 Range/Units 11:09 WBC 26.23 H (4.8-10.8) K/uL Hgb 14.1 (14.0-18.0) g/dL Hct 42.8 (42-52) % Plt Count 697 H (130-400) K/uL [facility] 05/29/21 11:09 Sodium 139 Potassium 3.9 Chloride 101 Carbon Dioxide 21 BUN 8 Creatinine 1.03 Glucose 152 H Calcium 9.2 Cardiac Enzymes 05/29/21 Range/Units 11:09 Total Creatine Kinase 67 (30-223) U/L Liver Function 05/29/21 Range/Units 11:09 Total Bilirubin 0.8 (0.2-1.0) mg/dl AST 197 H (13-39) U/L ALT 178 H (7-52) U/L Alkaline Phosphatase 271 H (34-104) U/L Albumin 3.5 (3.4-5.0) gm/dl Urine 05/29/21 Range/Units 11:35 Urine Color Yellow Urine Appearance Clear (Clear) Urine pH 8.5 H (4.5-7.5) Ur Specific [place] 1.041 H (1.000-1.030) Urine Protein Negative (Negative) Urine Glucose (UA) Negative (Negative) Code Status & VTE Plan VTE Prophylaxis Plan VTE Prophylaxis will be ordered: Yes Supervising Physician Co-Signing Physician Notes Patient was seen and examined at bedside. Chart reviewed and case discussed in detail with Berkley MUJICA. In summary, this is a 70 year old male with medical history as above presented to the ED after being found down and unresponsive at home and had a seizure like activity with the EMS. Patient unresponsive in the ED and ICU. Ill appearing, chest clear, heart sounds normal, abdomen benign, responsive only to painful stimuli. Detailed work up done including labs, CT head, CTA, MRI brain, CT A/P done. Found to have bilateral infarcts in MRI brain suggestive of embolic phenomena, does have bilateral carotid artery disease with 80-90% noncalcified atherosclerotic plaque. No Afib. EEG pending. Possible plan for LP per microstrategy bi developer. WBC 26, lactate 7. Sepsis not ruled out and on broad spectrum antibiotic pending blood clx results, also to cover for possible meningitis although low in differential given the MRI findings. CT A/P with gallblader sludge, MRCP pending. Elevated trop, echo with localized severe hypokinesis of apex with hyperdynamic wall segments, normal EF. Neuro and microstrategy bi developer on board. Cardio and GI consulted. Rest per the note above.
[2021-05-29] MEDS ORDERED: ENOXAPARIN INJ 40 MG/0.4 ML SYR SQ SCH (16:00)
[2021-05-29] MEDS ORDERED: MIDAZOLAM HCL 1 MG/ML 2ML VIAL IV PRN (16:13)
--- NOTE | 2021-05-29 16:18 | XRay Report ---
PROCEDURE: XR orbits for MRI CLINICAL HISTORY: Screening for foreign body for MRI. COMPARISON: None. FINDINGS: Plascencia and lateral views reveal no metallic orbital foreign bodies. The paranasal sinuses and the remainder of the facial structures are unremarkable. IMPRESSION: Negative pre-MRI screening orbits. ACT 112: Negative or not required by law. Electronically signed by: Chapito Ruano M.D. 05/29/2021 4:17 PM
[2021-05-29 16:20] LABS: iSTAT Allen Test Pass; iSTAT Art Bld Gas pCO2 Correct 26 mmHg (35-46); iSTAT Art Bld Gas pH Corrected 7.504 (7.35-7.45); iSTAT Arterial Blood Gas HCO3 21 meg/L (19-24); iSTAT Arterial Blood Gas pCO2 26 mmHg (35-46); iSTAT Arterial Blood Gas pH 7.52 (7.35-7.45); iSTAT Arterial Blood Gas pO2 72 mmHg (80-95); iSTAT Arterial Blood Gas pO2 C 75; iSTAT Carbon Dioxide 21 mmol/L (24-31); iSTAT Hematocrit 38 % (42-52); iSTAT Hemoglobin 12.9 g/dl (14.0-18.0); iSTAT Potassium 3.1 mmol/L (3.3-5.0); iSTAT Site L Radial; iSTAT Sodium 136 mmol/L (135-144)
[2021-05-29] MEDS ORDERED: GADOBUTROL 65ML VIAL IV ONE (17:06)
[2021-05-29 17:17] LABS: Creatinine Urine Random 11.4 mg/dl
--- NOTE | 2021-05-29 17:28 | Magnetic Resonance Report ---
MR brain seizure wo/w con CLINICAL HISTORY: seizure. Patient found unresponsive COMPARISON STUDY: CT brain from 05/29/2021 TECHNIQUE: Multiplanar multisequence images of the brain were performed before and after Gadavist, 4 mL of IV contrast. Diffusion weighted imaging and ADC mapping was also performed. FINDINGS: Extra-axial space: There is no evidence for a subdural hematoma, There are no extra-axial fluid enio ections. Ventricles and cisterns: The ventricles are mildly dilated bilaterally. There is no evidence for mid line shift or mass effect. Parenchyma: On noncontrast images, there are numerous acute bilateral infarcts characteristic of show ering of emboli. Acute diffusion abnormalities are noted within the distribution of the right middle and right posterior cerebral arteries within the parietal and occipital lobes on the right. There is also abnormal diffusion weighted imaging within the right frontal lobe. There are bilateral basal kirt glia infarcts. There are also left occipital and posterior parietal infarcts. There is normal jamil-white differentiation. The sulci and gyri appear normal without effacement. The midline structures are unremarkable. The posterior fossa structures appear normal. On postcontrast images, there is no evidence for enhancing mass lesion. Osseous structures: The paranasal sinuses are well aerated. The mastoid air cells are well aerated. Soft tissues: No focal soft tissue abnormalities are identified. IMPRESSION: 1. Diffuse ischemic infarcts present bilaterally, right greater than left. The findings are most francis acteristic of showering of emboli. ACT 112: Negative or not required by law. Electronically signed by: Chapito Ruano M.D. 05/29/2021 5:26 PM
[2021-05-29] MEDS ORDERED: ACETAMINOPHEN 1000 MG/100 ML IV IV PRN (17:40)
[2021-05-29] MEDS ORDERED: ACETAMINOPHEN IV PRN (17:49)
[2021-05-29] MEDS: AMPICILLIN 2,000 MG in SODIUM CHLOR 0.9% AD-VAN 100 ML IV SCH ×2 (18:00→22:30)
--- NOTE | 2021-05-29 18:35 | Cardiology Consultation ---
Date of Consultation May 29, 2021 Assessment & Plan (1) AMS (altered mental status): (2) Elevated troponin I level: (3) CAD (coronary artery disease): Patient is a 70-year-old male with complex history as outlined including remote history of coronary intervention, atherosclerotic coronary disease, mild carotid disease, mitral insufficiency presents now after found unresponsive at home. MRI suggest possible diffuse embolic shower. Laboratory studies notable for elevation in troponin Echocardiogram demonstrates discrete focal apical area of hypokinesis to akinesis with otherwise preserved wall motion and LV systolic function. No vegetation or thrombus identified Recommendations: Discussed the need for anticoagulation. Given possible recent stroke with holding full anticoagulation currently. Would add low-dose beta-celia for heart rate and blood pressure control with patient at risk for atrial arrhythmias/atrial fibrillation. Potassium supplement ordered at time of examination Troponins are elevated likely secondary to acute illness though recent myocardial infarction not excluded. Will follow his clinical course progress History of Present Illness Reason for Consultation: Acute mental status changes possible embolic stroke Requesting Physician: Dr. Garcia Attending Physician: Dilan Garcia MD History of Present Illness Patient is a 70-year-old male followed by [place] cardiology Dr. Decker whose history per review of records includes 1. Atherosclerotic coronary disease with remote LAD and left circumflex stenting 2. Prior LV wall motion abnormality 2014 with hypokinesis of the anterior and lateral apex 3. Mild bilateral carotid artery disease 4. Moderate mitral insufficiency 5. Hypertension 6. Hyperlipidemia 7. Chronic spinal disease status post anterior cervical discectomy for cervical myelopathy Patient admitted with acute mental status stations obtundation with patient found unresponsive on floor at home. Possible seizure activity observed during transport. Recent history obtained from records with patient notable hospitalization for mental status skin changes and hallucinations [facility] 05/21/2021 Patient unable to add additional information. Review of prior records demonstrates gradual decline over extended period of time with weight loss Assessment since admission notable for significant laboratory abnormalities, elevated white cell count lactate levels. MRI brain suggest multiple embolic shower Echocardiogram 05/29/2021 first this institution demonstrates focal area of severe hypokinesis to akinesis involving the apex with hyperdynamic mid and basilar structures. No valvular vegetations no apical thrombus visualized EKG without acute ST segment changes or injury Troponins elevated Allergies Allergy/AdvReac Type Severity Reaction Status Date / Time No Known Allergies Allergy Verified 05/29/21 14:40 Home Medications Medication Instructions Recorded Confirmed Type acetaminophen 325 mg tablet 650 mg PO TID 10/28/20 05/29/21 History (Tylenol) atorvastatin 40 mg tablet (Lipitor) 40 mg PO QAM 10/28/20 05/29/21 History gabapentin 800 mg tablet 800 mg PO TID 10/28/20 05/29/21 History methadone 10 mg tablet 10 mg PO BID PRN 10/28/20 05/29/21 History nortriptyline 10 mg capsule 10 mg PO HS 10/28/20 05/29/21 History (Pamelor) aspirin 81 mg tablet,delayed 81 mg PO DAILY 05/04/21 05/29/21 History release cevimeline 30 mg capsule 30 mg PO TID 05/29/21 05/29/21 History citalopram 20 mg tablet 20 mg PO DAILY 05/29/21 05/29/21 History docusate sodium 100 mg capsule 100 mg PO BID 05/29/21 05/29/21 History esomeprazole magnesium 40 mg 40 mg PO DAILY 05/29/21 05/29/21 History capsule,delayed release famotidine 20 mg tablet 20 mg PO DAILY PRN 05/29/21 05/29/21 History levothyroxine 112 mcg tablet 112 mcg PO DAILYBB 05/29/21 05/29/21 History Patient History Medical History (Updated 05/29/21 @ 16:48 by RHIANNON Flanagan) Anemia CAD (coronary artery disease) 2010- [facility] showed patent LAD and LCX stents, mild RCA disease per cardio records [place]- approx 15 years ago, total of 4 stents over time- most recent stent [address] 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 Decker in [place] Surgical History (Updated 05/29/21 @ 16:38 by RHIANNON Flanagan) H/O hand surgery "L hand traumatic injury repair around 1995" H/O neck surgery Hx of cardiac cath heart attack 15 years, total of [address] 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 Beliefs That Will Affect Care: None Current Living Situation: Alone Current Living Situation Comment: Unsafe situation Other Information That Helps Us Care for You: No Feels Safe at Home: No Is there a partner from a previous relationship who is making you feel unsafe now?: No Any Concerns about Your Family Situation: No Would You Like to Speak to Someone About Your Situation: No Assistive Devices: Cane and Glasses Review of Systems Review of Systems: Unobtainable due to reduced consciousness Physical Exam Constitutional: + cachectic and + altered mental status ENMT: external ear and nose normal, oropharynx normal Neck: trachea midline, no thyromegaly Respiratory: Auscultation: + diminished lung sounds Cardiovascular: Rate/Rhythm: regular rate, regular rhythm and + tachycardic Heart Sounds: no murmur Vessels: no JVD Extremities: no edema Gastrointestinal (Abdomen): Percussion/Palpation: abdomen soft Results & Data ([facility]) Vital Signs (Past 12 Hours) Vital Signs Temp Pulse Pulse Resp BP BP Pulse Ox 05/29/21 16:00 96 H 19 169/107 H 05/29/21 15:00 96 H 24 171/111 H 05/29/21 14:43 96 H 21 172/110 H 96 05/29/21 14:40 37.7 C H 05/29/21 14:00 95 H 14 159/100 H 97 05/29/21 13:30 98 H 16 166/104 H 98 05/29/21 13:00 102 H 14 160/96 H 96 05/29/21 12:30 105 H 16 163/99 H 98 05/29/21 12:00 98 H 14 161/97 H 98 05/29/21 11:30 98 H 16 165/99 H 98 05/29/21 10:53 37.4 C 108 H 16 162/87 H 96 Laboratory Results Laboratory Results - last 24 hr 04/16/22 04/16/22 04/16/22 11:04 11:09 11:09 WBC 26.23 H RBC 4.12 L Hgb 14.1 POC Hgb 15.3 Hct 42.8 POC Hct 45 MCV 103.9 H MCH 34.2 H MCHC 32.9 RDW Std Deviation 60.9 H RDW Coeff of Kaya 16.0 H Plt Count 697 H MPV 9.8 Immature Gran % (Auto) 0.5 Neut % (Auto) 94.5 Lymph % (Auto) 1.3 [place] % (Auto) 3.5 Eos % (Auto) 0.0 Baso % (Auto) 0.2 Neut # (Auto) 24.79 H Lymph # (Auto) 0.33 L [place] # (Auto) 0.92 H Eos # (Auto) 0.01 Baso # (Auto) 0.06 Immature Gran # (Auto) 0.12 H PT INR Sample Site POC pH POC pCO2 POC pO2 POC HCO3 POC Base Excess ABG pH (Temp Correct) ABG pCO2 (Temp Corrct POC ABG pO2 at Pt Temp POC ABG O2 Sat Antonio Test O2 Delivery Device POC Sodium 138 Sodium POC Potassium 3.9 Potassium POC Chloride 101 Chloride Carbon Dioxide POC Total CO2 22 L Anion Gap POC Anion Gap 20.0 POC BUN 7 BUN Creatinine POC Creatinine 0.9 Est Cr Clr Drug Dosing Est GFR ( Amer) Est GFR (Non-Af Amer) BUN/Creatinine Ratio Glucose POC Glucose POC Glucose (other) 161 H Lactate Calcium POC Ioniz Calcium Kuldeep 1.09 L Magnesium Total Bilirubin AST ALT Alkaline Phosphatase Total Creatine Kinase Troponin I High Sens 154.9 H* Total Protein Albumin Globulin Albumin/Globulin Ratio Lipase Procalcitonin TSH Prolactin Urine Color Urine Appearance Urine pH Ur Specific [place] Urine Protein Urine Glucose (UA) Urine Ketones Urine Blood Urine Nitrite Urine Bilirubin Urine Urobilinogen Ur Leukocyte Esterase Urine Osmolality Ur Random Creatinine Ur Random Sodium Ur Random Potassium Ur Random Chloride Nasal Screen MRSA (PCR) Urine Opiates Screen Ur Methadone, Qual Urine Barbiturates Ur Phencyclidine (PCP) U Amphetamin/Meth Scrn MDMA (Ecstasy) Screen U Benzodiazepines Scrn Ur Cocaine Metabolite U Marijuana (THC) Screen Ethyl Alcohol mg/dL SARS-CoV-2, RNA, NAAT 05/29/21 05/29/21 05/29/21 11:09 11:09 11:09 WBC RBC Hgb POC Hgb Hct POC Hct MCV MCH MCHC RDW Std Deviation RDW Coeff of Kaya Plt Count MPV Immature Gran % (Auto) Neut % (Auto) Lymph % (Auto) [place] % (Auto) Eos % (Auto) Baso % (Auto) Neut # (Auto) Lymph # (Auto) [place] # (Auto) Eos # (Auto) Baso # (Auto) Immature Gran # (Auto) PT 12.2 H INR 1.2 H Sample Site POC pH POC pCO2 POC pO2 POC HCO3 POC Base Excess ABG pH (Temp Correct) ABG pCO2 (Temp Corrct POC ABG pO2 at Pt Temp POC ABG O2 Sat Antonio Test O2 Delivery Device POC Sodium Sodium 139 POC Potassium Potassium 3.9 POC Chloride Chloride 101 Carbon Dioxide 21 POC Total CO2 Anion Gap 17 H POC Anion Gap POC BUN BUN 8 Creatinine 1.03 POC Creatinine Est Cr Clr Drug Dosing Not Reportable Est GFR ( Amer) 84.3 Est GFR (Non-Af Amer) 72.7 BUN/Creatinine Ratio 7.8 L Glucose 152 H POC Glucose POC Glucose (other) Lactate 7.2 H* Calcium 9.2 POC Ioniz Calcium Kuldeep Magnesium 1.5 L Total Bilirubin 0.8 AST 197 H ALT 178 H Alkaline Phosphatase 271 H Total Creatine Kinase 67 Troponin I High Sens Total Protein 6.5 Albumin 3.5 Globulin 3.0 Albumin/Globulin Ratio 1.2 Lipase Procalcitonin TSH Prolactin Urine Color Urine Appearance Urine pH Ur Specific [place] Urine Protein Urine Glucose (UA) Urine Ketones Urine Blood Urine Nitrite Urine Bilirubin Urine Urobilinogen Ur Leukocyte Esterase Urine Osmolality Ur Random Creatinine Ur Random Sodium Ur Random Potassium Ur Random Chloride Nasal Screen MRSA (PCR) Urine Opiates Screen Ur Methadone, Qual Urine Barbiturates Ur Phencyclidine (PCP) U Amphetamin/Meth Scrn MDMA (Ecstasy) Screen U Benzodiazepines Scrn Ur Cocaine Metabolite U Marijuana (THC) Screen Ethyl Alcohol mg/dL SARS-CoV-2, RNA, NAAT 05/29/21 05/29/21 05/29/21 11:09 11:09 11:09 WBC RBC Hgb POC Hgb Hct POC Hct MCV MCH MCHC RDW Std Deviation RDW Coeff of Kaya Plt Count MPV Immature Gran % (Auto) Neut % (Auto) Lymph % (Auto) [place] % (Auto) Eos % (Auto) Baso % (Auto) Neut # (Auto) Lymph # (Auto) [place] # (Auto) Eos # (Auto) Baso # (Auto) Immature Gran # (Auto) PT INR Sample Site POC pH POC pCO2 POC pO2 POC HCO3 POC Base Excess ABG pH (Temp Correct) ABG pCO2 (Temp Corrct POC ABG pO2 at Pt Temp POC ABG O2 Sat Antonio Test O2 Delivery Device POC Sodium Sodium POC Potassium Potassium POC Chloride Chloride Carbon Dioxide POC Total CO2 Anion Gap POC Anion Gap POC BUN BUN Creatinine POC Creatinine Est Cr Clr Drug Dosing Est GFR ( Amer) Est GFR (Non-Af Amer) BUN/Creatinine Ratio Glucose POC Glucose POC Glucose (other) Lactate Calcium POC Ioniz Calcium Kuldeep Magnesium Total Bilirubin AST ALT Alkaline Phosphatase Total Creatine Kinase Troponin I High Sens Total Protein Albumin Globulin Albumin/Globulin Ratio Lipase Procalcitonin 1.29 H TSH 3.335 Prolactin 23.94 Urine Color Urine Appearance Urine pH Ur Specific [place] Urine Protein Urine Glucose (UA) Urine Ketones Urine Blood Urine Nitrite Urine Bilirubin Urine Urobilinogen Ur Leukocyte Esterase Urine Osmolality Ur Random Creatinine Ur Random Sodium Ur Random Potassium Ur Random Chloride Nasal Screen MRSA (PCR) Urine Opiates Screen Ur Methadone, Qual Urine Barbiturates Ur Phencyclidine (PCP) U Amphetamin/Meth Scrn MDMA (Ecstasy) Screen U Benzodiazepines Scrn Ur Cocaine Metabolite U Marijuana (THC) Screen Ethyl Alcohol mg/dL SARS-CoV-2, RNA, NAAT 05/29/21 05/29/21 05/29/21 11:35 11:35 12:49 WBC RBC Hgb POC Hgb Hct POC Hct MCV MCH MCHC RDW Std Deviation RDW Coeff of Kaya Plt Count MPV Immature Gran % (Auto) Neut % (Auto) Lymph % (Auto) [place] % (Auto) Eos % (Auto) Baso % (Auto) Neut # (Auto) Lymph # (Auto) [place] # (Auto) Eos # (Auto) Baso # (Auto) Immature Gran # (Auto) PT INR Sample Site POC pH POC pCO2 POC pO2 POC HCO3 POC Base Excess ABG pH (Temp Correct) ABG pCO2 (Temp Corrct POC ABG pO2 at Pt Temp POC ABG O2 Sat Antonio Test O2 Delivery Device POC Sodium Sodium POC Potassium Potassium POC Chloride Chloride Carbon Dioxide POC Total CO2 Anion Gap POC Anion Gap POC BUN BUN Creatinine POC Creatinine Est Cr Clr Drug Dosing Est GFR ( Amer) Est GFR (Non-Af Amer) BUN/Creatinine Ratio Glucose POC Glucose POC Glucose (other) Lactate Calcium POC Ioniz Calcium Kuldeep Magnesium Total Bilirubin AST ALT Alkaline Phosphatase Total Creatine Kinase Troponin I High Sens Total Protein Albumin Globulin Albumin/Globulin Ratio Lipase Procalcitonin TSH Prolactin Urine Color Yellow Urine Appearance Clear Urine pH 8.5 H Ur Specific [place] 1.041 H Urine Protein Negative Urine Glucose (UA) Negative Urine Ketones Negative Urine Blood Negative Urine Nitrite Negative Urine Bilirubin Negative Urine Urobilinogen Negative Ur Leukocyte Esterase Negative Urine Osmolality Ur Random Creatinine Ur Random Sodium Ur Random Potassium Ur Random Chloride Nasal Screen MRSA (PCR) Urine Opiates Screen Ur Methadone, Qual Urine Barbiturates Ur Phencyclidine (PCP) U Amphetamin/Meth Scrn MDMA (Ecstasy) Screen U Benzodiazepines Scrn Ur Cocaine Metabolite U Marijuana (THC) Screen Ethyl Alcohol mg/dL < 10.0 SARS-CoV-2, RNA, NAAT NEGATIVE 05/29/21 05/29/21 05/29/21 12:49 12:49 13:45 WBC RBC Hgb POC Hgb Hct POC Hct MCV MCH MCHC RDW Std Deviation RDW Coeff of Kaya Plt Count MPV Immature Gran % (Auto) Neut % (Auto) Lymph % (Auto) [place] % (Auto) Eos % (Auto) Baso % (Auto) Neut # (Auto) Lymph # (Auto) [place] # (Auto) Eos # (Auto) Baso # (Auto) Immature Gran # (Auto) PT INR Sample Site POC pH POC pCO2 POC pO2 POC HCO3 POC Base Excess ABG pH (Temp Correct) ABG pCO2 (Temp Corrct POC ABG pO2 at Pt Temp POC ABG O2 Sat Antonio Test O2 Delivery Device POC Sodium Sodium POC Potassium Potassium POC Chloride Chloride Carbon Dioxide POC Total CO2 Anion Gap POC Anion Gap POC BUN BUN Creatinine POC Creatinine Est Cr Clr Drug Dosing Est GFR ( Amer) Est GFR (Non-Af Amer) BUN/Creatinine Ratio Glucose POC Glucose POC Glucose (other) Lactate 4.9 H* Calcium POC Ioniz Calcium Kuldeep Magnesium Total Bilirubin AST ALT Alkaline Phosphatase Total Creatine Kinase Troponin I High Sens Total Protein Albumin Globulin Albumin/Globulin Ratio Lipase 16 Procalcitonin TSH Prolactin Urine Color Urine Appearance Urine pH Ur Specific [place] Urine Protein Urine Glucose (UA) Urine Ketones Urine Blood Urine Nitrite Urine Bilirubin Urine Urobilinogen Ur Leukocyte Esterase Urine Osmolality Ur Random Creatinine Ur Random Sodium Ur Random Potassium Ur Random Chloride Nasal Screen MRSA (PCR) Urine Opiates Screen Neg Ur Methadone, Qual Neg Urine Barbiturates Neg Ur Phencyclidine (PCP) Neg U Amphetamin/Meth Scrn Neg MDMA (Ecstasy) Screen Neg U Benzodiazepines Scrn Neg Ur Cocaine Metabolite Neg U Marijuana (THC) Screen Neg Ethyl Alcohol mg/dL SARS-CoV-2, RNA, NAAT 05/29/21 05/29/21 05/29/21 15:45 16:00 16:00 WBC RBC Hgb POC Hgb Hct POC Hct MCV MCH MCHC RDW Std Deviation RDW Coeff of Kaya Plt Count MPV Immature Gran % (Auto) Neut % (Auto) Lymph % (Auto) [place] % (Auto) Eos % (Auto) Baso % (Auto) Neut # (Auto) Lymph # (Auto) [place] # (Auto) Eos # (Auto) Baso # (Auto) Immature Gran # (Auto) PT INR Sample Site POC pH POC pCO2 POC pO2 POC HCO3 POC Base Excess ABG pH (Temp Correct) ABG pCO2 (Temp Corrct POC ABG pO2 at Pt Temp POC ABG O2 Sat Antnoio Test O2 Delivery Device POC Sodium Sodium POC Potassium Potassium POC Chloride Chloride Carbon Dioxide POC Total CO2 Anion Gap POC Anion Gap POC BUN BUN Creatinine POC Creatinine Est Cr Clr Drug Dosing Est GFR ( Amer) Est GFR (Non-Af Amer) BUN/Creatinine Ratio Glucose POC Glucose POC Glucose (other) Lactate Calcium POC Ioniz Calcium Kuldeep Magnesium Total Bilirubin AST ALT Alkaline Phosphatase Total Creatine Kinase Troponin I High Sens Total Protein Albumin Globulin Albumin/Globulin Ratio Lipase Procalcitonin TSH Prolactin Urine Color Urine Appearance Urine pH Ur Specific [place] Urine Protein Urine Glucose (UA) Urine Ketones Urine Blood Urine Nitrite Urine Bilirubin Urine Urobilinogen Ur Leukocyte Esterase Urine Osmolality 414 L Ur Random Creatinine 11.4 Ur Random Sodium 166 Ur Random Potassium 21.0 Ur Random Chloride 167 Nasal Screen MRSA (PCR) Negative Urine Opiates Screen Ur Methadone, Qual Urine Barbiturates Ur Phencyclidine (PCP) U Amphetamin/Meth Scrn MDMA (Ecstasy) Screen U Benzodiazepines Scrn Ur Cocaine Metabolite U Marijuana (THC) Screen Ethyl Alcohol mg/dL SARS-CoV-2, RNA, NAAT 05/29/21 05/29/21 16:07 18:17 WBC RBC Hgb POC Hgb 12.9 L Hct POC Hct 38 L MCV MCH MCHC RDW Std Deviation RDW Coeff of Kaya Plt Count MPV Immature Gran % (Auto) Neut % (Auto) Lymph % (Auto) [place] % (Auto) Eos % (Auto) Baso % (Auto) Neut # (Auto) Lymph # (Auto) [place] # (Auto) Eos # (Auto) Baso # (Auto) Immature Gran # (Auto) PT INR Sample Site L Radial POC pH 7.52 H* POC pCO2 26 L POC pO2 72 L POC HCO3 21 POC Base Excess -2.0 ABG pH (Temp Correct) 7.504 H* ABG pCO2 (Temp Corrct 26 L POC ABG pO2 at Pt Temp 75 POC ABG O2 Sat 96.0 H Antonio Test Pass O2 Delivery Device Room Air POC Sodium 136 Sodium POC Potassium 3.1 L Potassium POC Chloride Chloride Carbon Dioxide POC Total CO2 21 L Anion Gap POC Anion Gap POC BUN BUN Creatinine POC Creatinine Est Cr Clr Drug Dosing Est GFR ( Amer) Est GFR (Non-Af Amer) BUN/Creatinine Ratio Glucose POC Glucose 156 H POC Glucose (other) Lactate Calcium POC Ioniz Calcium Kuldeep Magnesium Total Bilirubin AST ALT Alkaline Phosphatase Total Creatine Kinase Troponin I High Sens Total Protein Albumin Globulin Albumin/Globulin Ratio Lipase Procalcitonin TSH Prolactin Urine Color Urine Appearance Urine pH Ur Specific [place] Urine Protein Urine Glucose (UA) Urine Ketones Urine Blood Urine Nitrite Urine Bilirubin Urine Urobilinogen Ur Leukocyte Esterase Urine Osmolality Ur Random Creatinine Ur Random Sodium Ur Random Potassium Ur Random Chloride Nasal Screen MRSA (PCR) Urine Opiates Screen Ur Methadone, Qual Urine Barbiturates Ur Phencyclidine (PCP) U Amphetamin/Meth Scrn MDMA (Ecstasy) Screen U Benzodiazepines Scrn Ur Cocaine Metabolite U Marijuana (THC) Screen Ethyl Alcohol mg/dL SARS-CoV-2, RNA, NAAT (1) AMS (altered mental status) Altered mental status type: unspecified Qualified Code(s): R41.82 - Altered mental status, unspecified
--- NOTE | 2021-05-29 18:45 | Magnetic Resonance Report ---
MR MRCP CLINICAL HISTORY: Seizures, unresponsive TECHNIQUE: Multiplanar multisequence MR images were obtained of the abdomen, followed by reconstruct ion of MRCP imaging. COMPARISON: CT of the abdomen and pelvis from 05/29/2021 FINDINGS: Liver: There is homogeneous signal intensity seen within the liver. No mass lesions are seen. There i s no evidence for intrahepatic or duct dilatation. Gallbladder: The gallbladder is distended with sludge and cholelithiasis present. There is no evidenc e for wall thickening or pericholecystic edema. Spleen: There is homogeneous signal throughout the splenic parenchyma. No mass lesions are seen. Pancreas: The pancreas is homogeneous in signal There is no evidence for a mass lesion. Kidneys: There is homogeneous signal throughout the renal parenchyma bilaterally. Left renal cyst is again seen. Adrenal glands: There is homogeneous signal demonstrated with no gross mass seen. Abdominal cavity: There is no gross bowel dilatation. There is no evidence for ascites or adenopathy. The aorta is normal in caliber. The visualized osseous structures, demonstrate no evidence of abnormal signal intensity. MRCP: The common bile duct is normal in course and caliber. There is no evidence for dilatation. Ho wever, there is evidence for small intraluminal filling defect within its lumen of the common bile du ct where it turns. This is suspicious for choledocholithiasis. However, there is no intrahepatic or d uct dilatation. The pancreatic duct is normal in course and caliber. IMPRESSION: 1. Distended gallbladder with cholelithiasis. 2. There is evidence for an intraluminal filling defect within the common bile duct where the duct tu rns. This is suspicious for choledocholithiasis. However, there is no bile duct dilatation present. ACT 112: Negative or not required by law. Electronically signed by: Chapito Ruano M.D. 05/29/2021 6:42 PM
[2021-05-29] MEDS: POTASSIUM CHLORIDE / WTR 10 MEQ/100 ML PLCT IV SCH ×2 (18:50→19:39)
[2021-05-29] MEDS: CEFEPIME 2,000 MG in SYRINGE 0 ML IV SCH (18:51)
[2021-05-29] MEDS: SODIUM CHLORIDE 0.9% 1000ML 1,000 ML IV SCH (18:51)
--- NOTE | 2021-05-29 19:06 | Electroencephalogram ---
EEG Procedure Note Date of Service May 29, 2021 Start / End Times Start Time: 625 End Time: 645 Referring Physician Berkley JURADO History encephalopathy with one observed seizure with mri showing multiple embolic strokes Home Medication List Medication Instructions Recorded Confirmed Type acetaminophen 325 mg tablet 650 mg PO TID 10/28/20 05/29/21 History (Tylenol) atorvastatin 40 mg tablet (Lipitor) 40 mg PO QAM 10/28/20 05/29/21 History gabapentin 800 mg tablet 800 mg PO TID 10/28/20 05/29/21 History methadone 10 mg tablet 10 mg PO BID PRN 10/28/20 05/29/21 History nortriptyline 10 mg capsule 10 mg PO HS 10/28/20 05/29/21 History (Pamelor) aspirin 81 mg tablet,delayed 81 mg PO DAILY 05/04/21 05/29/21 History release cevimeline 30 mg capsule 30 mg PO TID 05/29/21 05/29/21 History citalopram 20 mg tablet 20 mg PO DAILY 05/29/21 05/29/21 History docusate sodium 100 mg capsule 100 mg PO BID 05/29/21 05/29/21 History esomeprazole magnesium 40 mg 40 mg PO DAILY 05/29/21 05/29/21 History capsule,delayed release famotidine 20 mg tablet 20 mg PO DAILY PRN 05/29/21 05/29/21 History levothyroxine 112 mcg tablet 112 mcg PO DAILYBB 05/29/21 05/29/21 History Inpatient Medication List Sodium Chloride (Nss 1000ml) 1,000 mls @ 125 mls/hr IV .Q8H JUAN Stop: 06/28/21 15:14 Last Admin: 05/29/21 18:51 Dose: 125 mls/hr Documented by: [id number] Cefepime HCl 2,000 mg/ Syringe 20 mls @ 5 mls/min IV Q8H JUAN; Protocol Stop: 06/08/21 16:59 Last Admin: 05/29/21 18:51 Dose: 5 mls/min Documented by: [id number] Ampicillin Sodium 2,000 mg/ (Sodium Chloride) 100 mls @ 200 mls/hr IV Q6H JUAN Stop: 06/08/21 16:59 Last Admin: 05/29/21 18:00 Dose: 200 mls/hr Documented by: [id number] Discontinued Medications Gadobutrol (Gadobutrol 65ml Vial) 4 ml IV ONCE ONE Stop: 05/29/21 17:07 Last Admin: 05/29/21 17:07 Dose: 4 ml Documented by: [id number] Sodium Chloride (Nss 1000ml) 1,000 mls @ 999 mls/hr IV .Q1H1M ONE Stop: 05/29/21 11:58 Last Infusion: 05/29/21 12:20 Dose: 0 mls/hr Documented by: [id number] Admin: 05/29/21 11:25 Dose: 999 mls/hr Documented by: [id number] Levetiracetam 1,000 mg/ Sodium (Chloride) 110 mls @ 440 mls/hr IV NOW STA Stop: 05/29/21 12:00 Last Infusion: 05/29/21 12:11 Dose: 0 mls/hr Documented by: [id number] Admin: 05/29/21 11:57 Dose: 440 mls/hr Documented by: [id number] Ceftriaxone Sodium (Rocephin) 2,000 mg in 70 mls @ 140 mls/hr IV NOW STA Stop: 05/29/21 12:44 Last Infusion: 05/29/21 12:46 Dose: 0 mls/hr Documented by: [id number] Admin: 05/29/21 12:22 Dose: 140 mls/hr Documented by: [id number] Sodium Chloride (Nss) 500 mls @ 999 mls/hr IV .Q31M ONE Stop: 05/29/21 12:45 Last Infusion: 05/29/21 13:04 Dose: 0 mls/hr Documented by: [id number] Admin: 05/29/21 12:22 Dose: 999 mls/hr Documented by: [id number] Sodium Chloride (Nss 1000ml) 1,000 mls @ 999 mls/hr IV .Q1H1M ONE Stop: 05/29/21 13:15 Last Infusion: 05/29/21 13:04 Dose: 0 mls/hr Documented by: [id number] Admin: 05/29/21 12:22 Dose: 999 mls/hr Documented by: [id number] Magnesium Sulfate/Dextrose (Magnesium Sulfate / D5w) 1 gm in 100 mls @ 200 mls/hr IV Q30M JUAN Stop: 05/29/21 13:29 Last Infusion: 05/29/21 14:43 Dose: 0 mls/hr Documented by: [id number] Admin: 05/29/21 13:39 Dose: 200 mls/hr Documented by: [id number] Infusion: 05/29/21 13:34 Dose: 200 mls/hr Documented by: [id number] Admin: 05/29/21 13:04 Dose: 200 mls/hr Documented by: [id number] Piperacillin Sod/Tazobactam (Sod 3.375 gm/ Dextrose) 115 mls @ 230 mls/hr IV NOW ONE; Protocol Stop: 05/29/21 15:29 Last Admin: 05/29/21 15:00 Dose: 230 mls/hr Documented by: [id number] Vancomycin HCl 2,000 mg/ (Sodium Chloride) 540 mls @ 200 mls/hr IV ONE ONE; Protocol Stop: 05/29/21 17:26 Last Infusion: 05/29/21 17:35 Dose: 0 mls/hr Documented by: [id number] Admin: 05/29/21 15:00 Dose: 200 mls/hr Documented by: [id number] Potassium Chloride (K Dario / Wtr) 10 meq in 100 mls @ 100 mls/hr IV Q1H JUAN; Protocol Stop: 05/29/21 18:29 Last Admin: 05/29/21 18:50 Dose: 100 mls/hr Documented by: [id number] Ioversol (Optiray 320 125ml) 120 ml IV ONCE ONE Stop: 05/29/21 11:31 Last Admin: 05/29/21 11:30 Dose: 120 ml Documented by: [id number] Miscellaneous (Rapid Sequence Induction Bag) Confirm Administered Dose 1 ea .ROUTE .STK-MED ONE Stop: 05/29/21 10:53 Last Admin: 05/29/21 12:03 Dose: Not Given Documented by: [id number] Description This is a 21 electrode EEG with a single channel dedicated to limited EKG. The electrodes were placed in accordance with the International 10-20 system. This eeg was done at the bedside and is of good quality with few significant artefacts and is done on a patient who is apparenltly poorly responsive video a nalysis confirms the absence of any seizure like activity or myoclonus Photic stimulation is done Hyperventilation was not drowines and light sleep are not clearly recorded The background rhythn is poorly developed but appears to be in the lower alpha range at about 9 hx and of up to 15 mv in amplitude Theta activiey of modest voltage is seen symmetrically in the central regions and is mixed with some intrmitent delta activity beta activity is seen bifrontally Photic stimulation provokes a minimal driving response No potentially epileptiform activity is seen Interpretation At most a mildly diffusely abnormal eeg with a poor background alpha rhythn and smoe mild increased generalized slow wave activity but without focal slowin or potentially spileptiform activity Clinical Correlation mildly diffusely and nonspecifically abnormal eeg consistent with an encphoalopathy of unknown cause but without clear focal findings or potentially epileptic patterns Flako Kohler MD
--- NOTE | 2021-05-29 19:09 | Communication Note ---
Date of Service: May 29, 2021 Destin Tolbert 70 years old was noted to the hospital today after having been found at home stuporous condition and with unresponsiveness or seizure noted by the EMT personnel. Is a nonconsumer of ethanol with his last drink was apparently on May 20 no withdrawal symptoms have been reported. In the ER he was felt that his airway was potentially compromised as he was very stuporous he was intubated and a series of diagnostic studies have been performed over the past 6 hours He had an elevated white count blood cultures have been done he has been placed on broad-spectrum antibiotics Liver functions have been elevated Besides elevated white count he has a high MCV Radiographically he has bilateral calcified carotid plaques, negative head CT a nd MRI done subsequently showed multiple presumptive embolic infarctions involving the anterior and posterior circulation implying the source well below the carotid arteries. No significant abnormalities are described on CTA of the aortic arch. Echocardiogram shows less than described as severe hypokinetic segment with a laminated thrombus is described there is no evidence for cardiac vegetations and his EKGs have not shown atrial fibrillation Chest abdomen pelvis CT scans without contrast are negative Pancreatic MRI results are pending. Study was apparently done to investigate potential for obstructive issues but also be helpful in limiting pancreatic carcinoma as a potential cause fors hypercoagulability and for embolic strokes The EEG was finally done and shows evidence for mild nonspecific encephalopathy but without any evidence for potentially epileptogenic activity I have been frequent contact with Berkley JURADO throughout the day generalized and discussing the case According to her description of the description given by my systems technologist patient is encephalopathic but no seizure activity or other abnormal motor movements are seen and he is intubated but not on the ventilator and is already on room air At this point because of the multiple embolic infarctions remains unclear By definition the source has to be either at the level of the aortic arch or intracardiac chambers or cardiac valves I would defer to cardiology and establishing with basic might be the cause here and for further management Lumbar puncture is being contemplated but frankly I do not think it is necessary but will defer this decision up to the ICU staff Obviously we do not want the patient on anticoagulants if lumbar puncture is being contemplated At this point neurology is going to recommend continue the Keppra 5 mg twice a day which was initiated after the seizure and broad-spectrum antibiotics and will defer to cardiology regarding the appropriate mode of anticoagulation to prevent further embolic events I do not think we need to postulate any other cause of encephalopathy beyond the multiple embolic infarctions, the possibility of a postictal state, drowsy prolonged effects of benzodiazepines are not the site by ENT and possibly an ethanol withdrawal state I will come into the bedside tomorrow hopefully with time the patient will be more awake alert and able to cooperate with examination Flako Kohler MD The above note was generated utilizing with recognition technology may have spelling errors punctuation errors pronoun usage errors and semantic errors
[2021-05-29] MEDS: METOPROLOL TARTRATE 1 MG/ML VIAL IV SCH (19:42)
[2021-05-29] MEDS ORDERED: PIPERACILLIN/TAZOBACTAM 3.375 GM in DEXTROSE 5% 100 ML IV SCH (20:00)
[2021-05-29 20:04] LABS: Albumin Globulin Ratio 1.1 (0.9-2); Albumin Level 3.1 gm/dl (3.4-5.0); Bilirubin,Total 0.7 mg/dl (0.2-1.0); Calcium 8.1 mg/dl (8.5-10.1); Creatinine Clr Calc Pharmacy 43.5 ml/min; Est GFR (African American) 100.2 ml/min; Est GFR (Non-African American) 86.4 ml/min; Globulin 2.8 gm/dl (2.5-4.0); Potassium 3.6 mmol/L (3.5-5.1); Total Protein 5.9 gm/dl (6.0-8.3)
[2021-05-29 20:33] LABS: Acetaminophen < 3 ug/ml (10-30); Salicylate < 3.0 mg/dl (3.0-30)
[2021-05-29] MEDS ORDERED: ICU MODERATE HYPERGLYCEMIA PROTOCOL ONE (21:16)
[2021-05-29] MEDS ORDERED: PHARMACY GLYCEMIC MGMT CONSULT PRN (21:25)
[2021-05-29] MEDS ORDERED: INSULIN GLARGINE SOLOSTAR 100 UNITS/ML 3 ML PEN SC SCH (21:30)
[2021-05-29] MEDS: levETIRAcetam 1,000 MG in 0.9 % SODIUM CHLORIDE 100 ML IV SCH (22:14)
[2021-05-29] MEDS ORDERED: levETIRAcetam 500 MG in 0.9 % SODIUM CHLORIDE 100 ML IV SCH (23:00)
[2021-05-30] MEDS: METOPROLOL TARTRATE 1 MG/ML VIAL IV SCH ×5 (00:03→16:29)
[2021-05-30] MEDS: INSULIN ASPART PER UNIT SC SCH ×4 (00:05→18:18)
[2021-05-30] MEDS: CEFEPIME 2,000 MG in SYRINGE 0 ML IV SCH ×4 (00:06→22:11)
[2021-05-30] MEDS ORDERED: ACETAMINOPHEN 60 ML IV PRN (02:27)
[2021-05-30] MEDS: SODIUM CHLORIDE 0.9% 1000ML 1,000 ML IV SCH ×3 (02:36→20:08)
[2021-05-30] MEDS ORDERED: VANCOMYCIN HCL 1,000 MG in SODIUM CHLORIDE 0.9% 250 ML IV SCH (04:00)
[2021-05-30] MEDS: AMPICILLIN 2,000 MG in SODIUM CHLOR 0.9% AD-VAN 100 ML IV SCH ×4 (04:28→22:11)
[2021-05-30] MEDS: VANCOMYCIN HCL 500 MG in DEXTROSE 5% 100 ML IV SCH ×2 (04:29→16:29)
[2021-05-30 05:25] LABS: Hemoglobin 12.4 g/dL (14.0-18.0); Mean Corpuscular Hemoglobin 34.3 pg (25-34); Mean Corpuscular Hgb Conc 33.5 g/dL (32-36); Mean Corpuscular Volume 102.5 fL (80-100); Mean Platelet Volume 10.1 fL (7.4-10.4); Platelet Count 432 K/uL (130-400); RDW Coefficient of Variation 16.1 % (11.5-14.5); RDW Standard Deviation 60.4 fL (36.4-46.3); Red Blood Count 3.61 M/uL (4.7-6.1); White Blood Count 24.57 K/uL (4.8-10.8)
[2021-05-30 05:39] LABS: Bilirubin Direct 0.2 mg/dl (0-0.2); Bilirubin,Total 0.8 mg/dl (0.2-1.0); Calcium 7.7 mg/dl (8.5-10.1); Creatinine Clr Calc Pharmacy 47.8 ml/min; Est GFR (African American) 104.2 ml/min; Est GFR (Non-African American) 89.9 ml/min; Magnesium 1.6 mg/dl (1.7-2.4); Phosphorus 2.8 mg/dl (2.5-4.9); Potassium 3.6 mmol/L (3.5-5.1); Total Protein 5.7 gm/dl (6.0-8.3)
[2021-05-30 05:48] LABS: Troponin I High Sensitivity 3850.1 pg/ml (0-20)
[2021-05-30 05:50] LABS: Basophils # (auto) 0.01 K/uL (0-0.2); Immature Granulocytes # (auto) 0.14 K/uL (0.00-0.02); Immature Granulocytes % (auto) 0.6 %; Lymphocytes # (auto) 0.86 K/uL (1.2-3.4); Lymphocytes % (auto) 3.5 %; Monocytes # (auto) 1.11 K/uL (0.11-0.59); Monocytes % (auto) 4.5 %; Neutrophils # (auto) 22.45 K/uL (1.4-6.5); Neutrophils % (auto) 91.4 %
[2021-05-30] MEDS ORDERED: MAGNESIUM SULFATE / D5W 1 GM/100 ML BAG IV ONE (06:06)
--- NOTE | 2021-05-30 07:21 | Electrocardiogram Report ---
Test Reason : Blood Pressure : / mmHG Vent. Rate : 114 BPM Atrial Rate : 114 BPM P-R Int : 118 ms QRS Dur : 064 ms QT Int : 396 ms P-R-T Axes : 074 047 043 degrees QTc Int : 545 ms Poor data quality, interpretation may be adversely affected Sinus tachycardia Prolonged QT Abnormal ECG When compared with ECG of 04-NOV-2020 13:52, No significant change was found Confirmed by Shailesh Monet ([id number]) on 05/30/2021 7:21:30 AM Referred By: REFERRED SELF Confirmed By:Ino Monet
--- NOTE | 2021-05-30 07:37 | Electrocardiogram Report ---
Test Reason : Blood Pressure : / mmHG Vent. Rate : 096 BPM Atrial Rate : 096 BPM P-R Int : 106 ms QRS Dur : 070 ms QT Int : 424 ms P-R-T Axes : 036 013 267 degrees QTc Int : 535 ms Poor data quality, interpretation may be adversely affected Sinus rhythm Possible Left atrial enlargement Low voltage QRS T wave abnormality, consider lateral ischemia Abnormal ECG When compared with ECG of 29-MAY-2021 11:01, (unconfirmed) Non-specific change in ST segment in Anterior leads Nonspecific T wave abnormality now evident in Inferior leads T wave inversion now evident in Anterolateral leads Confirmed by Shailesh Monet ([id number]) on 05/30/2021 7:37:11 AM Referred By: REFERRED SELF Confirmed By:Ino Monet
[2021-05-30] MEDS ORDERED: POTASSIUM PHOS 3 MMOL/1 ML INFUSION IV STA (07:46)
--- NOTE | 2021-05-30 07:47 | Critical Care Progress Note ---
Date of Service May 30, 2021 Assessment & Plan (1) Metabolic encephalopathy: (2) CAD (coronary artery disease): (3) AMS (altered mental status): (4) Chronic pain: (5) Elevated troponin I level: Plan: Reason Critically Ill: 70-year-old male past medical history of coronary artery disease, chronic pain, hypertension presented to hospital unresponsive. Patient in the ICU for metabolic encephalopathy Neuro - --Metabolic encephalopathy likely sec to acute stroke CT head, CT a head as well as CT cervical spine negative UDS negative, alcohol level negative, TSH within normal limits Sodium, calcium within normal limit EEG negative for seizure like activity Per patient did seem to have witnessed seizure by the EMS. Continue with Keppra for at least 6 months MRI showed b/l infarcts going more towards embolic phenomenon. 2D echo doesn't show vegetations. 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 Possibility of meningitis is very low now given other reason for encephalopathy --History of anxiety and depression Hold all antidepressant medication for the time being Cardiac - --Elevated troponin Likely secondary to type II IA EKG does not show any ST-T wave changes 2D echo 05/29/21: EF 55-60%, Severe hypokinesis of apex, mild concentric LVH --Prolonged QT Avoid QT prolonging medications --Hypertension Patient cannot take anything by mouth Continue with metoprolol --History of coronary artery disease Respiratory - --COPD Not on any liters at home Continue with as needed rescue inhalers GI - --Transaminitis with elevated alk phos With normal CPK Follow-up salicylate and acetaminophen level Continue to trend CT abdomen pelvis does not show any biliary dilatation MRCP showing no clear stones in choledochous RENAL/LYTES - --S/p HAGMA Delta-delta: 1.3, urine anion gap Likely sec to lactic acidosis Follow up serum osm, urine osm, urine lytes Monitor - Continue with Dowd, strict in and out ENDO - ICU hypoglycemia protocol HEME - --Microcytic anemia Likely from chronic alcohol abuse Continue to monitor ID - --Leukocytosis with thrombocythemia Left-sided shift Infection cannot be ruled out Procalcitonin 1.29 COVID-19 PCR negative Continue with broad-spectrum antibiotics vancomycin and Zosyn Meningitis cannot be ruled out. Patient is supposed to have MRI of the brain done CT abdomen pelvis showed possible sludge in the gallbladder. --Prophylaxis VTE: IPC GI: Protonix Lines: Peripheral, positive dowd Diet: N.p.o. --> start tube feeds after NGT is placed Plan: In/out: +2.1 L, urine output 2727 WBC count is still high. Which is most likely reactive from the stroke. Infection cannot be ruled out. Blood cultures have not been growing anything yet. The blood cultures are negative tomorrow then we can de-escalate antibiotics. Given that we have a source of his altered mental status which is multiple embolic strokes. No indication for LP right now. Magnesium being replaced, phosphorus as well as potassium being replaced Heparin drip will be started around 12 PM today which will be 24 hours since knowing that the patient had strokes NGT to be placed so that we can start the patient feeding Patient will likely have prolonged course. Overall prognosis is poor Patient's Sister Bell was called and updated regarding condition and new findings. I have personally spent 40 minutes of critical care time in the direct management of this patient. This is a life/limb threatening event. This includes time spent evaluating patient, direct bedside care, chart review, placing orders, interpretation of diagnostic studies, discussion with consultants, patient, and family members, as well as other required patient management activities. This time is exclusive of all separately billable procedures, and teaching time and separate from and in addition to any other critical care service time. Admission and Anticipated Discharge Date Admission Date: May 29, 2021 Subjective Patient seen and examined at bedside. No acute distress, no adverse events overnight Patient is still not following any commands His breathing on his own nonlabored. Saturation 96-97% on room air Has been afebrile Review of Systems Review of Systems: All systems reviewed & are unremarkable except as noted in Subjective Physical Exam Physical Exam: Constitutional: No acute distress HEENT: Good pupillary response, neck collar in place, incision site is clean, slow rolling nystagmus more towards the right Respiratory system: Decreased air entry bilaterally, no wheeze, rhonchi, mild crackles bilaterally CVS: S1-S2 positive, no murmurs or gallops Abdomen: Soft, nontender, nondistended, positive bowel sounds x4 Extremities: +2 pulses bilaterally radialis/ dorsalis pedis, no cyanosis, no edema Neuro: Somnolent, not following any commands, GCS 5, cogwheel rigidity of the right upper extremity, positive Babinski bilateral lower extremity Psych: Unable to assess G/U: Positive Dowd Skin: no rashes, warm and dry Lymphatic: no cervical or axillary lymphadenopathy Results & Data Results & Data ([facility] [place]) Vital Signs (Past 12 Hours) Vital Signs Temp Pulse Resp BP Pulse Ox 05/30/21 06:00 84 26 H 146/92 H 96 05/30/21 05:30 85 28 H 98 05/30/21 05:00 80 26 H 135/90 97 05/30/21 04:30 95 H 27 H 96 05/30/21 04:27 91 H 155/106 H 05/30/21 04:00 37.4 C 92 H 28 H 155/106 H 96 05/30/21 03:00 87 26 H 148/100 H 96 05/30/21 02:30 94 H 28 H 95 05/30/21 02:00 38.4 C H 91 H 30 H 155/104 H 95 05/30/21 01:30 90 28 H 96 05/30/21 01:00 91 H 18 95 05/30/21 00:30 90 27 H 96 05/30/21 00:03 97 H 157/104 H 05/30/21 00:00 37.9 C H 96 H 29 H 96 05/29/21 23:30 88 26 H 96 05/29/21 23:00 91 H 20 137/95 96 05/29/21 22:30 90 25 H 96 05/29/21 22:00 89 25 H 161/105 H 95 05/29/21 21:30 91 H 23 96 05/29/21 21:00 94 H 25 H 157/105 H 98 05/29/21 20:30 87 24 97 05/29/21 20:00 91 H 21 147/88 H 98 05/29/21 19:42 100 H 159/100 H Laboratory Results 05/30/21 05:08 05/30/21 05:08 Coding Level of Care Code Critical Care 1st 30-74 mins Diagnoses Metabolic encephalopathy G93.41 CAD (coronary artery disease) I25.10 AMS (altered mental status) R41.82 Altered mental status type: unspecified Chronic pain G89.29 Elevated troponin I level R77.8 Time Spent (min) 40 (1) AMS (altered mental status) Altered mental status type: unspecified Qualified Code(s): R41.82 - Altered mental status, unspecified
[2021-05-30] MEDS ORDERED: INFLUENZA VACCINE HIGH DOSE PF 65+ 0.7 ML SYR IM ONE (08:00)
[2021-05-30] MEDS ORDERED: PNEUMOCOCCAL POLYSACCHARIDES 25 MCG/0.5 ML VIAL/SYR IM ONE (08:00)
[2021-05-30] MEDS ORDERED: Heparin IV Adult Wt-Based Standard WITH Bolus Protocol IV SCH (08:09)
[2021-05-30] MEDS ORDERED: POTASSIUM PHOSPHATE 21 MMOL in DEXTROSE 5% 500 ML IV ONE (08:15)
[2021-05-30] MEDS: POTASSIUM CHLORIDE / WTR 10 MEQ/100 ML PLCT IV SCH ×2 (08:37→09:42)
--- NOTE | 2021-05-30 10:14 | Cardiology Progress Note ---
Date of Service May 30, 2021 Assessment & Plan (1) AMS (altered mental status): (2) Elevated troponin I level: (3) CAD (coronary artery disease): Plan: Patient is a 70-year-old male with complex history as outlined including remote history of coronary intervention, atherosclerotic coronary disease, mild carotid disease, mitral insufficiency presents now after found unresponsive at home. MRI suggest possible diffuse embolic shower. Laboratory studies notable for elevation in troponin Echocardiogram demonstrates discrete focal apical area of hypokinesis to akinesis with otherwise preserved wall motion and LV systolic function. No vegetation or thrombus identified Recommendations: Troponins have peaked, EKGs echocardiogram consistent with apical infarct question acute coronary syndrome versus stress mediated in the setting of acute illness. Apical infarct may represent embolic source Agree with plans of initiating anticoagulant therapy. Will increase metoprolol to tartrate to 5 mg IV every 4 hours to be switched to oral metoprolol 25 mg 3 times daily once GI feeding tube placed infectious and supportive care as per intensive care Admission and Anticipated Discharge Date Admission Date: May 29, 2021 Subjective Patient was seen and examined, chart, medications, telemetry reviewed. Hemodynamically stable overnight. Still extremely lethargic. Will open eyes right gaze deference No vocalize symptoms or complaints. No arrhythmias on telemetry Review of Systems Review of Systems: All systems reviewed & are unremarkable except as noted in Subjective Physical Exam Constitutional: + cachectic and + altered mental status ENMT: external ear and nose normal, oropharynx normal Neck: trachea midline, no thyromegaly Respiratory: Auscultation: + diminished lung sounds Cardiovascular: Rate/Rhythm: regular rate and regular rhythm Heart Sounds: no murmur Vessels: no JVD Extremities: no edema Gastrointestinal (Abdomen): Percussion/Palpation: abdomen soft Results & Data ([facility]) Vital Signs (Past 12 Hours) Vital Signs Temp Pulse Resp BP Pulse Ox 05/30/21 08:00 88 05/30/21 06:00 84 26 H 146/92 H 96 05/30/21 05:30 85 28 H 98 05/30/21 05:00 80 26 H 135/90 97 05/30/21 04:30 95 H 27 H 96 05/30/21 04:27 91 H 155/106 H 05/30/21 04:00 37.4 C 92 H 28 H 155/106 H 96 05/30/21 03:00 87 26 H 148/100 H 96 04/17/22 02:30 94 H 28 H 95 05/30/21 02:00 38.4 C H 91 H 30 H 155/104 H 95 05/30/21 01:30 90 28 H 96 05/30/21 01:00 91 H 18 95 05/30/21 00:30 90 27 H 96 05/30/21 00:03 97 H 157/104 H 05/30/21 00:00 37.9 C H 96 H 29 H 96 05/29/21 23:30 88 26 H 96 05/29/21 23:00 91 H 20 137/95 96 05/29/21 22:30 90 25 H 96 Laboratory Results Laboratory Results - last 24 hr 05/29/21 05/29/21 05/29/21 11:04 11:09 11:09 WBC 26.23 H RBC 4.12 L Hgb 14.1 POC Hgb 15.3 Hct 42.8 POC Hct 45 MCV 103.9 H MCH 34.2 H MCHC 32.9 RDW Std Deviation 60.9 H RDW Coeff of Kaya 16.0 H Plt Count 697 H MPV 9.8 Immature Gran % (Auto) 0.5 Neut % (Auto) 94.5 Lymph % (Auto) 1.3 Bacon % (Auto) 3.5 Eos % (Auto) 0.0 Baso % (Auto) 0.2 Neut # (Auto) 24.79 H Lymph # (Auto) 0.33 L Bacon # (Auto) 0.92 H Eos # (Auto) 0.01 Baso # (Auto) 0.06 Immature Gran # (Auto) 0.12 H PT INR Sample Site POC pH POC pCO2 POC pO2 POC HCO3 POC Base Excess ABG pH (Temp Correct) ABG pCO2 (Temp Corrct POC ABG pO2 at Pt Temp POC ABG O2 Sat Antonio Test O2 Delivery Device POC Sodium 138 Sodium POC Potassium 3.9 Potassium POC Chloride 101 Chloride Carbon Dioxide POC Total CO2 22 L Anion Gap POC Anion Gap 20.0 POC BUN 7 BUN Creatinine POC Creatinine 0.9 Est Cr Clr Drug Dosing Est GFR ( Amer) Est GFR (Non-Af Amer) BUN/Creatinine Ratio Glucose POC Glucose POC Glucose (other) 161 H Osmolality Lactate Calcium POC Ioniz Calcium Kuldeep 1.09 L Phosphorus Magnesium Total Bilirubin Direct Bilirubin AST ALT Alkaline Phosphatase Total Creatine Kinase Troponin I High Sens 154.9 H* Total Protein Albumin Globulin Albumin/Globulin Ratio Lipase Procalcitonin TSH Prolactin Urine Color Urine Appearance Urine pH Ur Specific [place] Urine Protein Urine Glucose (UA) Urine Ketones Urine Blood Urine Nitrite Urine Bilirubin Urine Urobilinogen Ur Leukocyte Esterase Urine Osmolality Ur Random Creatinine Ur Random Sodium Ur Random Potassium Ur Random Chloride Nasal Screen MRSA (PCR) Salicylates Urine Opiates Screen Ur Methadone, Qual Acetaminophen Urine Barbiturates Ur Phencyclidine (PCP) U Amphetamin/Meth Scrn MDMA (Ecstasy) Screen U Benzodiazepines Scrn Ur Cocaine Metabolite U Marijuana (THC) Screen Ethyl Alcohol mg/dL Hepatitis C Ab (EIA) Hep C Ab Signal/Cutoff SARS-CoV-2, RNA, NAAT 05/29/21 05/29/21 05/29/21 11:09 11:09 11:09 WBC RBC Hgb POC Hgb Hct POC Hct MCV MCH MCHC RDW Std Deviation RDW Coeff of Kaya Plt Count MPV Immature Gran % (Auto) Neut % (Auto) Lymph % (Auto) Bacon % (Auto) Eos % (Auto) Baso % (Auto) Neut # (Auto) Lymph # (Auto) Bacon # (Auto) Eos # (Auto) Baso # (Auto) Immature Gran # (Auto) PT 12.2 H INR 1.2 H Sample Site POC pH POC pCO2 POC pO2 POC HCO3 POC Base Excess ABG pH (Temp Correct) ABG pCO2 (Temp Corrct POC ABG pO2 at Pt Temp POC ABG O2 Sat Antonio Test O2 Delivery Device POC Sodium Sodium 139 POC Potassium Potassium 3.9 POC Chloride Chloride 101 Carbon Dioxide 21 POC Total CO2 Anion Gap 17 H POC Anion Gap POC BUN BUN 8 Creatinine 1.03 POC Creatinine Est Cr Clr Drug Dosing Not Reportable Est GFR ( Amer) 84.3 Est GFR (Non-Af Amer) 72.7 BUN/Creatinine Ratio 7.8 L Glucose 152 H POC Glucose POC Glucose (other) Osmolality Lactate 7.2 H* Calcium 9.2 POC Ioniz Calcium Kuldeep Phosphorus Magnesium 1.5 L Total Bilirubin 0.8 Direct Bilirubin AST 197 H ALT 178 H Alkaline Phosphatase 271 H Total Creatine Kinase 67 Troponin I High Sens Total Protein 6.5 Albumin 3.5 Globulin 3.0 Albumin/Globulin Ratio 1.2 Lipase Procalcitonin TSH Prolactin Urine Color Urine Appearance Urine pH Ur Specific [place] Urine Protein Urine Glucose (UA) Urine Ketones Urine Blood Urine Nitrite Urine Bilirubin Urine Urobilinogen Ur Leukocyte Esterase Urine Osmolality Ur Random Creatinine Ur Random Sodium Ur Random Potassium Ur Random Chloride Nasal Screen MRSA (PCR) Salicylates Urine Opiates Screen Ur Methadone, Qual Acetaminophen Urine Barbiturates Ur Phencyclidine (PCP) U Amphetamin/Meth Scrn MDMA (Ecstasy) Screen U Benzodiazepines Scrn Ur Cocaine Metabolite U Marijuana (THC) Screen Ethyl Alcohol mg/dL Hepatitis C Ab (EIA) Hep C Ab Signal/Cutoff SARS-CoV-2, RNA, NAAT 05/29/21 05/29/21 05/29/21 11:09 11:09 11:09 WBC RBC Hgb POC Hgb Hct POC Hct MCV MCH MCHC RDW Std Deviation RDW Coeff of Kaya Plt Count MPV Immature Gran % (Auto) Neut % (Auto) Lymph % (Auto) Bacon % (Auto) Eos % (Auto) Baso % (Auto) Neut # (Auto) Lymph # (Auto) Bacon # (Auto) Eos # (Auto) Baso # (Auto) Immature Gran # (Auto) PT INR Sample Site POC pH POC pCO2 POC pO2 POC HCO3 POC Base Excess ABG pH (Temp Correct) ABG pCO2 (Temp Corrct POC ABG pO2 at Pt Temp POC ABG O2 Sat Antonio Test O2 Delivery Device POC Sodium Sodium POC Potassium Potassium POC Chloride Chloride Carbon Dioxide POC Total CO2 Anion Gap POC Anion Gap POC BUN BUN Creatinine POC Creatinine Est Cr Clr Drug Dosing Est GFR ( Amer) Est GFR (Non-Af Amer) BUN/Creatinine Ratio Glucose POC Glucose POC Glucose (other) Osmolality Lactate Calcium POC Ioniz Calcium Kuldeep Phosphorus Magnesium Total Bilirubin Direct Bilirubin AST ALT Alkaline Phosphatase Total Creatine Kinase Troponin I High Sens Total Protein Albumin Globulin Albumin/Globulin Ratio Lipase Procalcitonin 1.29 H TSH 3.335 Prolactin 23.94 Urine Color Urine Appearance Urine pH Ur Specific [place] Urine Protein Urine Glucose (UA) Urine Ketones Urine Blood Urine Nitrite Urine Bilirubin Urine Urobilinogen Ur Leukocyte Esterase Urine Osmolality Ur Random Creatinine Ur Random Sodium Ur Random Potassium Ur Random Chloride Nasal Screen MRSA (PCR) Salicylates Urine Opiates Screen Ur Methadone, Qual Acetaminophen Urine Barbiturates Ur Phencyclidine (PCP) U Amphetamin/Meth Scrn MDMA (Ecstasy) Screen U Benzodiazepines Scrn Ur Cocaine Metabolite U Marijuana (THC) Screen Ethyl Alcohol mg/dL Hepatitis C Ab (EIA) Hep C Ab Signal/Cutoff SARS-CoV-2, RNA, NAAT 05/29/21 05/29/21 05/29/21 11:35 11:35 12:49 WBC RBC Hgb POC Hgb Hct POC Hct MCV MCH MCHC RDW Std Deviation RDW Coeff of Kaya Plt Count MPV Immature Gran % (Auto) Neut % (Auto) Lymph % (Auto) Bacon % (Auto) Eos % (Auto) Baso % (Auto) Neut # (Auto) Lymph # (Auto) Bacon # (Auto) Eos # (Auto) Baso # (Auto) Immature Gran # (Auto) PT INR Sample Site POC pH POC pCO2 POC pO2 POC HCO3 POC Base Excess ABG pH (Temp Correct) ABG pCO2 (Temp Corrct POC ABG pO2 at Pt Temp POC ABG O2 Sat Antonio Test O2 Delivery Device POC Sodium Sodium POC Potassium Potassium POC Chloride Chloride Carbon Dioxide POC Total CO2 Anion Gap POC Anion Gap POC BUN BUN Creatinine POC Creatinine Est Cr Clr Drug Dosing Est GFR ( Amer) Est GFR (Non-Af Amer) BUN/Creatinine Ratio Glucose POC Glucose POC Glucose (other) Osmolality Lactate Calcium POC Ioniz Calcium Kuldeep Phosphorus Magnesium Total Bilirubin Direct Bilirubin AST ALT Alkaline Phosphatase Total Creatine Kinase Troponin I High Sens Total Protein Albumin Globulin Albumin/Globulin Ratio Lipase Procalcitonin TSH Prolactin Urine Color Yellow Urine Appearance Clear Urine pH 8.5 H Ur Specific [place] 1.041 H Urine Protein Negative Urine Glucose (UA) Negative Urine Ketones Negative Urine Blood Negative Urine Nitrite Negative Urine Bilirubin Negative Urine Urobilinogen Negative Ur Leukocyte Esterase Negative Urine Osmolality Ur Random Creatinine Ur Random Sodium Ur Random Potassium Ur Random Chloride Nasal Screen MRSA (PCR) Salicylates Urine Opiates Screen Ur Methadone, Qual Acetaminophen Urine Barbiturates Ur Phencyclidine (PCP) U Amphetamin/Meth Scrn MDMA (Ecstasy) Screen U Benzodiazepines Scrn Ur Cocaine Metabolite U Marijuana (THC) Screen Ethyl Alcohol mg/dL < 10.0 Hepatitis C Ab (EIA) Hep C Ab Signal/Cutoff SARS-CoV-2, RNA, NAAT NEGATIVE 05/29/21 05/29/21 05/29/21 12:49 12:49 13:45 WBC RBC Hgb POC Hgb Hct POC Hct MCV MCH MCHC RDW Std Deviation RDW Coeff of Kaya Plt Count MPV Immature Gran % (Auto) Neut % (Auto) Lymph % (Auto) Bacon % (Auto) Eos % (Auto) Baso % (Auto) Neut # (Auto) Lymph # (Auto) Bacon # (Auto) Eos # (Auto) Baso # (Auto) Immature Gran # (Auto) PT INR Sample Site POC pH POC pCO2 POC pO2 POC HCO3 POC Base Excess ABG pH (Temp Correct) ABG pCO2 (Temp Corrct POC ABG pO2 at Pt Temp POC ABG O2 Sat Antonio Test O2 Delivery Device POC Sodium Sodium POC Potassium Potassium POC Chloride Chloride Carbon Dioxide POC Total CO2 Anion Gap POC Anion Gap POC BUN BUN Creatinine POC Creatinine Est Cr Clr Drug Dosing Est GFR ( Amer) Est GFR (Non-Af Amer) BUN/Creatinine Ratio Glucose POC Glucose POC Glucose (other) Osmolality Lactate 4.9 H* Calcium POC Ioniz Calcium Kuldeep Phosphorus Magnesium Total Bilirubin Direct Bilirubin AST ALT Alkaline Phosphatase Total Creatine Kinase Troponin I High Sens Total Protein Albumin Globulin Albumin/Globulin Ratio Lipase 16 Procalcitonin TSH Prolactin Urine Color Urine Appearance Urine pH Ur Specific [place] Urine Protein Urine Glucose (UA) Urine Ketones Urine Blood Urine Nitrite Urine Bilirubin Urine Urobilinogen Ur Leukocyte Esterase Urine Osmolality Ur Random Creatinine Ur Random Sodium Ur Random Potassium Ur Random Chloride Nasal Screen MRSA (PCR) Salicylates Urine Opiates Screen Neg Ur Methadone, Qual Neg Acetaminophen Urine Barbiturates Neg Ur Phencyclidine (PCP) Neg U Amphetamin/Meth Scrn Neg MDMA (Ecstasy) Screen Neg U Benzodiazepines Scrn Neg Ur Cocaine Metabolite Neg U Marijuana (THC) Screen Neg Ethyl Alcohol mg/dL Hepatitis C Ab (EIA) Hep C Ab Signal/Cutoff SARS-CoV-2, RNA, NAAT 05/29/21 05/29/21 05/29/21 15:45 16:00 16:00 WBC RBC Hgb POC Hgb Hct POC Hct MCV MCH MCHC RDW Std Deviation RDW Coeff of Kaya Plt Count MPV Immature Gran % (Auto) Neut % (Auto) Lymph % (Auto) Bacon % (Auto) Eos % (Auto) Baso % (Auto) Neut # (Auto) Lymph # (Auto) Bacon # (Auto) Eos # (Auto) Baso # (Auto) Immature Gran # (Auto) PT INR Sample Site POC pH POC pCO2 POC pO2 POC HCO3 POC Base Excess ABG pH (Temp Correct) ABG pCO2 (Temp Corrct POC ABG pO2 at Pt Temp POC ABG O2 Sat Antonio Test O2 Delivery Device POC Sodium Sodium POC Potassium Potassium POC Chloride Chloride Carbon Dioxide POC Total CO2 Anion Gap POC Anion Gap POC BUN BUN Creatinine POC Creatinine Est Cr Clr Drug Dosing Est GFR ( Amer) Est GFR (Non-Af Amer) BUN/Creatinine Ratio Glucose POC Glucose POC Glucose (other) Osmolality Lactate Calcium POC Ioniz Calcium Kuldeep Phosphorus Magnesium Total Bilirubin Direct Bilirubin AST ALT Alkaline Phosphatase Total Creatine Kinase Troponin I High Sens Total Protein Albumin Globulin Albumin/Globulin Ratio Lipase Procalcitonin TSH Prolactin Urine Color Urine Appearance Urine pH Ur Specific [place] Urine Protein Urine Glucose (UA) Urine Ketones Urine Blood Urine Nitrite Urine Bilirubin Urine Urobilinogen Ur Leukocyte Esterase Urine Osmolality 414 L Ur Random Creatinine 11.4 Ur Random Sodium 166 Ur Random Potassium 21.0 Ur Random Chloride 167 Nasal Screen MRSA (PCR) Negative Salicylates Urine Opiates Screen Ur Methadone, Qual Acetaminophen Urine Barbiturates Ur Phencyclidine (PCP) U Amphetamin/Meth Scrn MDMA (Ecstasy) Screen U Benzodiazepines Scrn Ur Cocaine Metabolite U Marijuana (THC) Screen Ethyl Alcohol mg/dL Hepatitis C Ab (EIA) Hep C Ab Signal/Cutoff SARS-CoV-2, RNA, NAAT 05/29/21 05/29/21 05/29/21 16:07 18:17 19:30 WBC RBC Hgb POC Hgb 12.9 L Hct POC Hct 38 L MCV MCH MCHC RDW Std Deviation RDW Coeff of Kaya Plt Count MPV Immature Gran % (Auto) Neut % (Auto) Lymph % (Auto) Bacon % (Auto) Eos % (Auto) Baso % (Auto) Neut # (Auto) Lymph # (Auto) Bacon # (Auto) Eos # (Auto) Baso # (Auto) Immature Gran # (Auto) PT INR Sample Site L Radial POC pH 7.52 H* POC pCO2 26 L POC pO2 72 L POC HCO3 21 POC Base Excess -2.0 ABG pH (Temp Correct) 7.504 H* ABG pCO2 (Temp Corrct 26 L POC ABG pO2 at Pt Temp 75 POC ABG O2 Sat 96.0 H Antonio Test Pass O2 Delivery Device Room Air POC Sodium 136 Sodium POC Potassium 3.1 L Potassium POC Chloride Chloride Carbon Dioxide POC Total CO2 21 L Anion Gap POC Anion Gap POC BUN BUN Creatinine POC Creatinine Est Cr Clr Drug Dosing Est GFR ( Amer) Est GFR (Non-Af Amer) BUN/Creatinine Ratio Glucose POC Glucose 156 H POC Glucose (other) Osmolality Lactate Calcium POC Ioniz Calcium Kuldeep Phosphorus Magnesium Total Bilirubin Direct Bilirubin AST ALT Alkaline Phosphatase Total Creatine Kinase Troponin I High Sens 4074.0 H* D Total Protein Albumin Globulin Albumin/Globulin Ratio Lipase Procalcitonin TSH Prolactin Urine Color Urine Appearance Urine pH Ur Specific [place] Urine Protein Urine Glucose (UA) Urine Ketones Urine Blood Urine Nitrite Urine Bilirubin Urine Urobilinogen Ur Leukocyte Esterase Urine Osmolality Ur Random Creatinine Ur Random Sodium Ur Random Potassium Ur Random Chloride Nasal Screen MRSA (PCR) Salicylates Urine Opiates Screen Ur Methadone, Qual Acetaminophen Urine Barbiturates Ur Phencyclidine (PCP) U Amphetamin/Meth Scrn MDMA (Ecstasy) Screen U Benzodiazepines Scrn Ur Cocaine Metabolite U Marijuana (THC) Screen Ethyl Alcohol mg/dL Hepatitis C Ab (EIA) Hep C Ab Signal/Cutoff SARS-CoV-2, RNA, NAAT 05/29/21 05/29/21 05/29/21 19:30 19:30 19:30 WBC RBC Hgb POC Hgb Hct POC Hct MCV MCH MCHC RDW Std Deviation RDW Coeff of Kaya Plt Count MPV Immature Gran % (Auto) Neut % (Auto) Lymph % (Auto) Bacon % (Auto) Eos % (Auto) Baso % (Auto) Neut # (Auto) Lymph # (Auto) Bacon # (Auto) Eos # (Auto) Baso # (Auto) Immature Gran # (Auto) PT INR Sample Site POC pH POC pCO2 POC pO2 POC HCO3 POC Base Excess ABG pH (Temp Correct) ABG pCO2 (Temp Corrct POC ABG pO2 at Pt Temp POC ABG O2 Sat Antonio Test O2 Delivery Device POC Sodium Sodium POC Potassium Potassium POC Chloride Chloride Carbon Dioxide POC Total CO2 Anion Gap POC Anion Gap POC BUN BUN Creatinine POC Creatinine Est Cr Clr Drug Dosing Est GFR ( Amer) Est GFR (Non-Af Amer) BUN/Creatinine Ratio Glucose POC Glucose POC Glucose (other) Osmolality 289 Lactate Calcium POC Ioniz Calcium Kuldeep Phosphorus Magnesium Total Bilirubin Direct Bilirubin AST ALT Alkaline Phosphatase Total Creatine Kinase Troponin I High Sens Total Protein Albumin Globulin Albumin/Globulin Ratio Lipase Procalcitonin TSH Prolactin Urine Color Urine Appearance Urine pH Ur Specific [place] Urine Protein Urine Glucose (UA) Urine Ketones Urine Blood Urine Nitrite Urine Bilirubin Urine Urobilinogen Ur Leukocyte Esterase Urine Osmolality Ur Random Creatinine Ur Random Sodium Ur Random Potassium Ur Random Chloride Nasal Screen MRSA (PCR) Salicylates < 3.0 L Urine Opiates Screen Ur Methadone, Qual Acetaminophen < 3 L Urine Barbiturates Ur Phencyclidine (PCP) U Amphetamin/Meth Scrn MDMA (Ecstasy) Screen U Benzodiazepines Scrn Ur Cocaine Metabolite U Marijuana (THC) Screen Ethyl Alcohol mg/dL Hepatitis C Ab (EIA) Pending Hep C Ab Signal/Cutoff Pending SARS-CoV-2, RNA, NAAT 05/29/21 05/29/21 05/29/21 19:30 19:30 21:06 WBC RBC Hgb POC Hgb Hct POC Hct MCV MCH MCHC RDW Std Deviation RDW Coeff of Kaya Plt Count MPV Immature Gran % (Auto) Neut % (Auto) Lymph % (Auto) Bacon % (Auto) Eos % (Auto) Baso % (Auto) Neut # (Auto) Lymph # (Auto) Bacon # (Auto) Eos # (Auto) Baso # (Auto) Immature Gran # (Auto) PT INR Sample Site POC pH POC pCO2 POC pO2 POC HCO3 POC Base Excess ABG pH (Temp Correct) ABG pCO2 (Temp Corrct POC ABG pO2 at Pt Temp POC ABG O2 Sat Antonio Test O2 Delivery Device POC Sodium Sodium 136 POC Potassium Potassium 3.6 POC Chloride Chloride 102 Carbon Dioxide 21 POC Total CO2 Anion Gap 13 H POC Anion Gap POC BUN BUN 7 Creatinine 0.88 POC Creatinine Est Cr Clr Drug Dosing 43.5 Est GFR ( Amer) 100.2 Est GFR (Non-Af Amer) 86.4 BUN/Creatinine Ratio 8.0 L Glucose 169 H POC Glucose 145 H POC Glucose (other) Osmolality Lactate 3.8 H* Calcium 8.1 L POC Ioniz Calcium Kuldeep Phosphorus Magnesium Total Bilirubin 0.7 Direct Bilirubin AST 128 H ALT 137 H Alkaline Phosphatase 230 H Total Creatine Kinase Troponin I High Sens Total Protein 5.9 L Albumin 3.1 L Globulin 2.8 Albumin/Globulin Ratio 1.1 Lipase Procalcitonin TSH Prolactin Urine Color Urine Appearance Urine pH Ur Specific [place] Urine Protein Urine Glucose (UA) Urine Ketones Urine Blood Urine Nitrite Urine Bilirubin Urine Urobilinogen Ur Leukocyte Esterase Urine Osmolality Ur Random Creatinine Ur Random Sodium Ur Random Potassium Ur Random Chloride Nasal Screen MRSA (PCR) Salicylates Urine Opiates Screen Ur Methadone, Qual Acetaminophen Urine Barbiturates Ur Phencyclidine (PCP) U Amphetamin/Meth Scrn MDMA (Ecstasy) Screen U Benzodiazepines Scrn Ur Cocaine Metabolite U Marijuana (THC) Screen Ethyl Alcohol mg/dL Hepatitis C Ab (EIA) Hep C Ab Signal/Cutoff SARS-CoV-2, RNA, NAAT 05/29/21 05/30/21 05/30/21 23:57 00:35 05:08 WBC 24.57 H RBC 3.61 L Hgb 12.4 L POC Hgb Hct 37.0 L POC Hct MCV 102.5 H MCH 34.3 H MCHC 33.5 RDW Std Deviation 60.4 H RDW Coeff of Kaya 16.1 H Plt Count 432 H MPV 10.1 Immature Gran % (Auto) 0.6 Neut % (Auto) 91.4 Lymph % (Auto) 3.5 Bacon % (Auto) 4.5 Eos % (Auto) 0.0 Baso % (Auto) 0.0 Neut # (Auto) 22.45 H Lymph # (Auto) 0.86 L Bacon # (Auto) 1.11 H Eos # (Auto) 0.00 Baso # (Auto) 0.01 Immature Gran # (Auto) 0.14 H PT INR Sample Site POC pH POC pCO2 POC pO2 POC HCO3 POC Base Excess ABG pH (Temp Correct) ABG pCO2 (Temp Corrct POC ABG pO2 at Pt Temp POC ABG O2 Sat Antonio Test O2 Delivery Device POC Sodium Sodium POC Potassium Potassium POC Chloride Chloride Carbon Dioxide POC Total CO2 Anion Gap POC Anion Gap POC BUN BUN Creatinine POC Creatinine Est Cr Clr Drug Dosing Est GFR ( Amer) Est GFR (Non-Af Amer) BUN/Creatinine Ratio Glucose POC Glucose 144 H POC Glucose (other) Osmolality Lactate Calcium POC Ioniz Calcium Kuldeep Phosphorus Magnesium Total Bilirubin Direct Bilirubin AST ALT Alkaline Phosphatase Total Creatine Kinase Troponin I High Sens 4685.4 H* Total Protein Albumin Globulin Albumin/Globulin Ratio Lipase Procalcitonin TSH Prolactin Urine Color Urine Appearance Urine pH Ur Specific [place] Urine Protein Urine Glucose (UA) Urine Ketones Urine Blood Urine Nitrite Urine Bilirubin Urine Urobilinogen Ur Leukocyte Esterase Urine Osmolality Ur Random Creatinine Ur Random Sodium Ur Random Potassium Ur Random Chloride Nasal Screen MRSA (PCR) Salicylates Urine Opiates Screen Ur Methadone, Qual Acetaminophen Urine Barbiturates Ur Phencyclidine (PCP) U Amphetamin/Meth Scrn MDMA (Ecstasy) Screen U Benzodiazepines Scrn Ur Cocaine Metabolite U Marijuana (THC) Screen Ethyl Alcohol mg/dL Hepatitis C Ab (EIA) Hep C Ab Signal/Cutoff SARS-CoV-2, RNA, NAAT 05/30/21 05/30/21 05/30/21 05:08 05:08 05:46 WBC RBC Hgb POC Hgb Hct POC Hct MCV MCH MCHC RDW Std Deviation RDW Coeff of Kaya Plt Count MPV Immature Gran % (Auto) Neut % (Auto) Lymph % (Auto) Bacon % (Auto) Eos % (Auto) Baso % (Auto) Neut # (Auto) Lymph # (Auto) Bacon # (Auto) Eos # (Auto) Baso # (Auto) Immature Gran # (Auto) PT INR Sample Site POC pH POC pCO2 POC pO2 POC HCO3 POC Base Excess ABG pH (Temp Correct) ABG pCO2 (Temp Corrct POC ABG pO2 at Pt Temp POC ABG O2 Sat Antonio Test O2 Delivery Device POC Sodium Sodium 132 L POC Potassium Potassium 3.6 POC Chloride Chloride 101 Carbon Dioxide 20 L POC Total CO2 Anion Gap 11 POC Anion Gap POC BUN BUN 8 Creatinine 0.80 POC Creatinine Est Cr Clr Drug Dosing 47.8 Est GFR ( Amer) 104.2 Est GFR (Non-Af Amer) 89.9 BUN/Creatinine Ratio 10.0 Glucose 199 H POC Glucose 130 H POC Glucose (other) Osmolality Lactate 2.7 H* Calcium 7.7 L POC Ioniz Calcium Kuldeep Phosphorus 2.8 Magnesium 1.6 L Total Bilirubin 0.8 Direct Bilirubin 0.2 AST 91 H ALT 111 H Alkaline Phosphatase 202 H Total Creatine Kinase Troponin I High Sens 3850.1 H* Total Protein 5.7 L Albumin 3.0 L Globulin Albumin/Globulin Ratio Lipase Procalcitonin TSH Prolactin Urine Color Urine Appearance Urine pH Ur Specific [place] Urine Protein Urine Glucose (UA) Urine Ketones Urine Blood Urine Nitrite Urine Bilirubin Urine Urobilinogen Ur Leukocyte Esterase Urine Osmolality Ur Random Creatinine Ur Random Sodium Ur Random Potassium Ur Random Chloride Nasal Screen MRSA (PCR) Salicylates Urine Opiates Screen Ur Methadone, Qual Acetaminophen Urine Barbiturates Ur Phencyclidine (PCP) U Amphetamin/Meth Scrn MDMA (Ecstasy) Screen U Benzodiazepines Scrn Ur Cocaine Metabolite U Marijuana (THC) Screen Ethyl Alcohol mg/dL Hepatitis C Ab (EIA) Hep C Ab Signal/Cutoff SARS-CoV-2, RNA, NAAT (1) AMS (altered mental status) Altered mental status type: unspecified Qualified Code(s): R41.82 - Altered mental status, unspecified
[2021-05-30] MEDS: HEPARIN SODIUM/DEXTROSE 25,000 UNITS/500 ML BAG IV SCH (10:52)
--- NOTE | 2021-05-30 10:52 | XRay Report ---
KUB HISTORY: Status post placement of a feeding tube Coresafe placement COMPARISON: CT abdomen and pelvis 05/29/2021 FINDINGS: Status post placement of a feeding tube, distal tip projected over the gastric fundus. The left lateral abdomen and lower pelvis are excluded from the [id number]. Air-filled loops of large and small bowel are noted. No renal calculi. No ureteral calculi. No pneumoperitoneum or pneumatosis . Degenerative changes of the spine. Bibasilar pulmonary opacities. No fracture. IMPRESSION: 1. Distal tip of feeding tube projects over the gastric fundus. 2. Bibasilar opacities suggest atelectasis versus pneumonitis. ACT 112: Negative or not required by law. The above report was generated using voice recognition software. It may contain grammatical, syntax o r spelling errors. Electronically signed by: Matti Thornton M.D. 05/30/2021 10:51 AM
[2021-05-30] MEDS ORDERED: PANTOprazole 40 MG in SYRINGE 0 ML IV SCH (11:00)
[2021-05-30] MEDS: levETIRAcetam 1,000 MG in 0.9 % SODIUM CHLORIDE 100 ML IV SCH ×2 (11:05→22:11)
[2021-05-30] MEDS ORDERED: HEPARIN SOD (PORCINE) 1000 UNIT/ML IV ONE (11:05)
--- NOTE | 2021-05-30 11:18 | Gastrointestinal Consultation ---
Date of Consultation May 30, 2021 Assessment & Plan (1) Elevated LFTs: I highly doubt the patient has acute cholangitis in view of normal bilirubin and nondilated CBD, regardless of possible choledocholithiasis on MRCP. His leukocytosis and fever could be [facility] His blood cultures are negative. In any case the patient is not at all stable for sedation to undergo an ERCP in view of his acute CVA and ACS. If biliary tree is deemed a source of sepsis then should go the IR PTC drainage route which does not require sedation. I suggest to continue ABx. Recall GI if he clinically improves from his Stroke and ACS and will certainly consider ERCP. History of Present Illness Reason for Consultation: Abnormal LFTs Attending Physician: Dilan Garcia MD History of Present Illness 70 years old male patient admitted to the ICU with AMS, found to have diffuse bilateral ischemic embolic brain infarcts and acute coronary syndrome with apical infarction. GI consulted for distended GB of imaging with slightly elevated LFTs. He underwent MRCP which showed a nondilated CBD with possible stone however his bilirubin is normal and his AST/ALT are trending down. Unable to obtain further history from the patient as he is deeply obtunded. Allergies Allergy/AdvReac Type Severity Reaction Status Date / Time No Known Allergies Allergy Verified 05/29/21 14:40 Home Medications Medication Instructions Recorded Confirmed Type acetaminophen 325 mg tablet 650 mg PO TID 10/28/20 05/29/21 History (Tylenol) atorvastatin 40 mg tablet (Lipitor) 40 mg PO QAM 10/28/20 05/29/21 History gabapentin 800 mg tablet 800 mg PO TID 10/28/20 05/29/21 History methadone 10 mg tablet 10 mg PO BID PRN 10/28/20 05/29/21 History nortriptyline 10 mg capsule 10 mg PO HS 10/28/20 05/29/21 History (Pamelor) aspirin 81 mg tablet,delayed 81 mg PO DAILY 05/04/21 05/29/21 History release cevimeline 30 mg capsule 30 mg PO TID 05/29/21 05/29/21 History citalopram 20 mg tablet 20 mg PO DAILY 05/29/21 05/29/21 History docusate sodium 100 mg capsule 100 mg PO BID 05/29/21 05/29/21 History esomeprazole magnesium 40 mg 40 mg PO DAILY 05/29/21 05/29/21 History capsule,delayed release famotidine 20 mg tablet 20 mg PO DAILY PRN 05/29/21 05/29/21 History levothyroxine 112 mcg tablet 112 mcg PO DAILYBB 05/29/21 05/29/21 History Patient History Medical History (Updated 05/29/21 @ 16:48 by RHIANNON Flanagan) Anemia CAD (coronary artery disease) 2010- [facility] showed patent LAD and LCX stents, mild RCA disease per cardio records [place]- approx 15 years ago, total of 4 stents over time- most recent stent [address] 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 Decker in [place] Surgical History (Updated 05/29/21 @ 16:38 by RHIANNON Flanagan) H/O hand surgery "L hand traumatic injury repair around 1995" H/O neck surgery Hx of cardiac cath heart attack 15 years, total of [address] Chaney in [place] Hx of colonoscopy Family History Mother Hypothyroidism Father Heart disease Social History Smoking Status: Former smoker Second Hand Exposure: No; Hx Alcohol Use: Yes Alcohol type: hard liquor Hx Substance Use: No Preferred Language: French Communication Ability: Impaired Director Of Technology Required: No Beliefs That Will Affect Care: None Current Living Situation: Alone Current Living Situation Comment: Unsafe situation Other Information That Helps Us Care for You: No Feels Safe at Home: No Is there a partner from a previous relationship who is making you feel unsafe now?: No Any Concerns about Your Family Situation: No Would You Like to Speak to Someone About Your Situation: No Assistive Devices: Walker Review of Systems Review of Systems: Unable to obtain Physical Exam Constitutional: comfortable; no acute distress Respiratory: normal respiratory effort, lungs clear to auscultation Cardiovascular: RRR, no murmur, no edema Gastrointestinal (Abdomen): normal bowel sounds, soft, nontender, no hepatosplenomegaly Results & Data ([facility]) Vital Signs (Past 12 Hours) Vital Signs Temp Pulse Resp BP Pulse Ox 05/30/21 08:00 88 05/30/21 06:00 84 26 H 146/92 H 96 05/30/21 05:30 85 28 H 98 05/30/21 05:00 80 26 H 135/90 97 05/30/21 04:30 95 H 27 H 96 05/30/21 04:27 91 H 155/106 H 05/30/21 04:00 37.4 C 92 H 28 H 155/106 H 96 05/30/21 03:00 87 26 H 148/100 H 96 05/30/21 02:30 94 H 28 H 95 05/30/21 02:00 38.4 C H 91 H 30 H 155/104 H 95 05/30/21 01:30 90 28 H 96 05/30/21 01:00 91 H 18 95 05/30/21 00:30 90 27 H 96 05/30/21 00:03 97 H 157/104 H 05/30/21 00:00 37.9 C H 96 H 29 H 96 05/29/21 23:30 88 26 H 96 Laboratory Results Laboratory Results - last 24 hr 05/29/21 05/29/21 05/29/21 11:09 11:09 11:09 WBC 26.23 H RBC 4.12 L Hgb 14.1 POC Hgb Hct 42.8 POC Hct MCV 103.9 H MCH 34.2 H MCHC 32.9 RDW Std Deviation 60.9 H RDW Coeff of Kaya 16.0 H Plt Count 697 H MPV 9.8 Immature Gran % (Auto) 0.5 Neut % (Auto) 94.5 Lymph % (Auto) 1.3 Major % (Auto) 3.5 Eos % (Auto) 0.0 Baso % (Auto) 0.2 Neut # (Auto) 24.79 H Lymph # (Auto) 0.33 L Major # (Auto) 0.92 H Eos # (Auto) 0.01 Baso # (Auto) 0.06 Immature Gran # (Auto) 0.12 H PT 12.2 H INR 1.2 H Sample Site POC pH POC pCO2 POC pO2 POC HCO3 POC Total CO2 POC Base Excess ABG pH (Temp Correct) ABG pCO2 (Temp Corrct POC ABG pO2 at Pt Temp POC ABG O2 Sat Antonio Test O2 Delivery Device POC Sodium Sodium POC Potassium Potassium Chloride Carbon Dioxide Anion Gap BUN Creatinine Est Cr Clr Drug Dosing Est GFR ( Amer) Est GFR (Non-Af Amer) BUN/Creatinine Ratio Glucose POC Glucose Osmolality Lactate Calcium Phosphorus Magnesium Total Bilirubin Direct Bilirubin AST ALT Alkaline Phosphatase Total Creatine Kinase Troponin I High Sens 154.9 H* Total Protein Albumin Globulin Albumin/Globulin Ratio Lipase Procalcitonin TSH Prolactin Urine Color Urine Appearance Urine pH Ur Specific [place] Urine Protein Urine Glucose (UA) Urine Ketones Urine Blood Urine Nitrite Urine Bilirubin Urine Urobilinogen Ur Leukocyte Esterase Urine Osmolality Ur Random Creatinine Ur Random Sodium Ur Random Potassium Ur Random Chloride Nasal Screen MRSA (PCR) Salicylates Urine Opiates Screen Ur Methadone, Qual Acetaminophen Urine Barbiturates Ur Phencyclidine (PCP) U Amphetamin/Meth Scrn MDMA (Ecstasy) Screen U Benzodiazepines Scrn Ur Cocaine Metabolite U Marijuana (THC) Screen Ethyl Alcohol mg/dL Hepatitis C Ab (EIA) Hep C Ab Signal/Cutoff SARS-CoV-2, RNA, NAAT 05/29/21 05/29/21 05/29/21 11:09 11:09 11:09 WBC RBC Hgb POC Hgb Hct POC Hct MCV MCH MCHC RDW Std Deviation RDW Coeff of Kaya Plt Count MPV Immature Gran % (Auto) Neut % (Auto) Lymph % (Auto) Major % (Auto) Eos % (Auto) Baso % (Auto) Neut # (Auto) Lymph # (Auto) Major # (Auto) Eos # (Auto) Baso # (Auto) Immature Gran # (Auto) PT INR Sample Site POC pH POC pCO2 POC pO2 POC HCO3 POC Total CO2 POC Base Excess ABG pH (Temp Correct) ABG pCO2 (Temp Corrct POC ABG pO2 at Pt Temp POC ABG O2 Sat Antonio Test O2 Delivery Device POC Sodium Sodium 139 POC Potassium Potassium 3.9 Chloride 101 Carbon Dioxide 21 Anion Gap 17 H BUN 8 Creatinine 1.03 Est Cr Clr Drug Dosing Not Reportable Est GFR ( Amer) 84.3 Est GFR (Non-Af Amer) 72.7 BUN/Creatinine Ratio 7.8 L Glucose 152 H POC Glucose Osmolality Lactate 7.2 H* Calcium 9.2 Phosphorus Magnesium 1.5 L Total Bilirubin 0.8 Direct Bilirubin AST 197 H ALT 178 H Alkaline Phosphatase 271 H Total Creatine Kinase 67 Troponin I High Sens Total Protein 6.5 Albumin 3.5 Globulin 3.0 Albumin/Globulin Ratio 1.2 Lipase Procalcitonin TSH 3.335 Prolactin Urine Color Urine Appearance Urine pH Ur Specific [place] Urine Protein Urine Glucose (UA) Urine Ketones Urine Blood Urine Nitrite Urine Bilirubin Urine Urobilinogen Ur Leukocyte Esterase Urine Osmolality Ur Random Creatinine Ur Random Sodium Ur Random Potassium Ur Random Chloride Nasal Screen MRSA (PCR) Salicylates Urine Opiates Screen Ur Methadone, Qual Acetaminophen Urine Barbiturates Ur Phencyclidine (PCP) U Amphetamin/Meth Scrn MDMA (Ecstasy) Screen U Benzodiazepines Scrn Ur Cocaine Metabolite U Marijuana (THC) Screen Ethyl Alcohol mg/dL Hepatitis C Ab (EIA) Hep C Ab Signal/Cutoff SARS-CoV-2, RNA, NAAT 05/29/21 05/29/21 05/29/21 11:09 11:09 11:35 WBC RBC Hgb POC Hgb Hct POC Hct MCV MCH MCHC RDW Std Deviation RDW Coeff of Kaya Plt Count MPV Immature Gran % (Auto) Neut % (Auto) Lymph % (Auto) Major % (Auto) Eos % (Auto) Baso % (Auto) Neut # (Auto) Lymph # (Auto) Major # (Auto) Eos # (Auto) Baso # (Auto) Immature Gran # (Auto) PT INR Sample Site POC pH POC pCO2 POC pO2 POC HCO3 POC Total CO2 POC Base Excess ABG pH (Temp Correct) ABG pCO2 (Temp Corrct POC ABG pO2 at Pt Temp POC ABG O2 Sat Antonio Test O2 Delivery Device POC Sodium Sodium POC Potassium Potassium Chloride Carbon Dioxide Anion Gap BUN Creatinine Est Cr Clr Drug Dosing Est GFR ( Amer) Est GFR (Non-Af Amer) BUN/Creatinine Ratio Glucose POC Glucose Osmolality Lactate Calcium Phosphorus Magnesium Total Bilirubin Direct Bilirubin AST ALT Alkaline Phosphatase Total Creatine Kinase Troponin I High Sens Total Protein Albumin Globulin Albumin/Globulin Ratio Lipase Procalcitonin 1.29 H TSH Prolactin 23.94 Urine Color Yellow Urine Appearance Clear Urine pH 8.5 H Ur Specific [place] 1.041 H Urine Protein Negative Urine Glucose (UA) Negative Urine Ketones Negative Urine Blood Negative Urine Nitrite Negative Urine Bilirubin Negative Urine Urobilinogen Negative Ur Leukocyte Esterase Negative Urine Osmolality Ur Random Creatinine Ur Random Sodium Ur Random Potassium Ur Random Chloride Nasal Screen MRSA (PCR) Salicylates Urine Opiates Screen Ur Methadone, Qual Acetaminophen Urine Barbiturates Ur Phencyclidine (PCP) U Amphetamin/Meth Scrn MDMA (Ecstasy) Screen U Benzodiazepines Scrn Ur Cocaine Metabolite U Marijuana (THC) Screen Ethyl Alcohol mg/dL Hepatitis C Ab (EIA) Hep C Ab Signal/Cutoff SARS-CoV-2, RNA, NAAT 05/29/21 05/29/21 05/29/21 11:35 12:49 12:49 WBC RBC Hgb POC Hgb Hct POC Hct MCV MCH MCHC RDW Std Deviation RDW Coeff of Kaya Plt Count MPV Immature Gran % (Auto) Neut % (Auto) Lymph % (Auto) Major % (Auto) Eos % (Auto) Baso % (Auto) Neut # (Auto) Lymph # (Auto) Major # (Auto) Eos # (Auto) Baso # (Auto) Immature Gran # (Auto) PT INR Sample Site POC pH POC pCO2 POC pO2 POC HCO3 POC Total CO2 POC Base Excess ABG pH (Temp Correct) ABG pCO2 (Temp Corrct POC ABG pO2 at Pt Temp POC ABG O2 Sat Antonio Test O2 Delivery Device POC Sodium Sodium POC Potassium Potassium Chloride Carbon Dioxide Anion Gap BUN Creatinine Est Cr Clr Drug Dosing Est GFR ( Amer) Est GFR (Non-Af Amer) BUN/Creatinine Ratio Glucose POC Glucose Osmolality Lactate 4.9 H* Calcium Phosphorus Magnesium Total Bilirubin Direct Bilirubin AST ALT Alkaline Phosphatase Total Creatine Kinase Troponin I High Sens Total Protein Albumin Globulin Albumin/Globulin Ratio Lipase Procalcitonin TSH Prolactin Urine Color Urine Appearance Urine pH Ur Specific [place] Urine Protein Urine Glucose (UA) Urine Ketones Urine Blood Urine Nitrite Urine Bilirubin Urine Urobilinogen Ur Leukocyte Esterase Urine Osmolality Ur Random Creatinine Ur Random Sodium Ur Random Potassium Ur Random Chloride Nasal Screen MRSA (PCR) Salicylates Urine Opiates Screen Ur Methadone, Qual Acetaminophen Urine Barbiturates Ur Phencyclidine (PCP) U Amphetamin/Meth Scrn MDMA (Ecstasy) Screen U Benzodiazepines Scrn Ur Cocaine Metabolite U Marijuana (THC) Screen Ethyl Alcohol mg/dL < 10.0 Hepatitis C Ab (EIA) Hep C Ab Signal/Cutoff SARS-CoV-2, RNA, NAAT NEGATIVE 0405/29/21 05/29/21 12:49 13:45 15:45 WBC RBC Hgb POC Hgb Hct POC Hct MCV MCH MCHC RDW Std Deviation RDW Coeff of Kaya Plt Count MPV Immature Gran % (Auto) Neut % (Auto) Lymph % (Auto) Major % (Auto) Eos % (Auto) Baso % (Auto) Neut # (Auto) Lymph # (Auto) Major # (Auto) Eos # (Auto) Baso # (Auto) Immature Gran # (Auto) PT INR Sample Site POC pH POC pCO2 POC pO2 POC HCO3 POC Total CO2 POC Base Excess ABG pH (Temp Correct) ABG pCO2 (Temp Corrct POC ABG pO2 at Pt Temp POC ABG O2 Sat Antonio Test O2 Delivery Device POC Sodium Sodium POC Potassium Potassium Chloride Carbon Dioxide Anion Gap BUN Creatinine Est Cr Clr Drug Dosing Est GFR ( Amer) Est GFR (Non-Af Amer) BUN/Creatinine Ratio Glucose POC Glucose Osmolality Lactate Calcium Phosphorus Magnesium Total Bilirubin Direct Bilirubin AST ALT Alkaline Phosphatase Total Creatine Kinase Troponin I High Sens Total Protein Albumin Globulin Albumin/Globulin Ratio Lipase 16 Procalcitonin TSH Prolactin Urine Color Urine Appearance Urine pH Ur Specific [place] Urine Protein Urine Glucose (UA) Urine Ketones Urine Blood Urine Nitrite Urine Bilirubin Urine Urobilinogen Ur Leukocyte Esterase Urine Osmolality Ur Random Creatinine Ur Random Sodium Ur Random Potassium Ur Random Chloride Nasal Screen MRSA (PCR) Negative Salicylates Urine Opiates Screen Neg Ur Methadone, Qual Neg Acetaminophen Urine Barbiturates Neg Ur Phencyclidine (PCP) Neg U Amphetamin/Meth Scrn Neg MDMA (Ecstasy) Screen Neg U Benzodiazepines Scrn Neg Ur Cocaine Metabolite Neg U Marijuana (THC) Screen Neg Ethyl Alcohol mg/dL Hepatitis C Ab (EIA) Hep C Ab Signal/Cutoff SARS-CoV-2, RNA, NAAT 05/29/21 05/29/21 05/29/21 16:00 16:00 16:07 WBC RBC Hgb POC Hgb 12.9 L Hct POC Hct 38 L MCV MCH MCHC RDW Std Deviation RDW Coeff of Kaya Plt Count MPV Immature Gran % (Auto) Neut % (Auto) Lymph % (Auto) Major % (Auto) Eos % (Auto) Baso % (Auto) Neut # (Auto) Lymph # (Auto) Major # (Auto) Eos # (Auto) Baso # (Auto) Immature Gran # (Auto) PT INR Sample Site L Radial POC pH 7.52 H* POC pCO2 26 L POC pO2 72 L POC HCO3 21 POC Total CO2 21 L POC Base Excess -2.0 ABG pH (Temp Correct) 7.504 H* ABG pCO2 (Temp Corrct 26 L POC ABG pO2 at Pt Temp 75 POC ABG O2 Sat 96.0 H Antonio Test Pass O2 Delivery Device Room Air POC Sodium 136 Sodium POC Potassium 3.1 L Potassium Chloride Carbon Dioxide Anion Gap BUN Creatinine Est Cr Clr Drug Dosing Est GFR ( Amer) Est GFR (Non-Af Amer) BUN/Creatinine Ratio Glucose POC Glucose Osmolality Lactate Calcium Phosphorus Magnesium Total Bilirubin Direct Bilirubin AST ALT Alkaline Phosphatase Total Creatine Kinase Troponin I High Sens Total Protein Albumin Globulin Albumin/Globulin Ratio Lipase Procalcitonin TSH Prolactin Urine Color Urine Appearance Urine pH Ur Specific [place] Urine Protein Urine Glucose (UA) Urine Ketones Urine Blood Urine Nitrite Urine Bilirubin Urine Urobilinogen Ur Leukocyte Esterase Urine Osmolality 414 L Ur Random Creatinine 11.4 Ur Random Sodium 166 Ur Random Potassium 21.0 Ur Random Chloride 167 Nasal Screen MRSA (PCR) Salicylates Urine Opiates Screen Ur Methadone, Qual Acetaminophen Urine Barbiturates Ur Phencyclidine (PCP) U Amphetamin/Meth Scrn MDMA (Ecstasy) Screen U Benzodiazepines Scrn Ur Cocaine Metabolite U Marijuana (THC) Screen Ethyl Alcohol mg/dL Hepatitis C Ab (EIA) Hep C Ab Signal/Cutoff SARS-CoV-2, RNA, NAAT 05/29/21 05/29/21 05/29/21 18:17 19:30 19:30 WBC RBC Hgb POC Hgb Hct POC Hct MCV MCH MCHC RDW Std Deviation RDW Coeff of Kaya Plt Count MPV Immature Gran % (Auto) Neut % (Auto) Lymph % (Auto) Major % (Auto) Eos % (Auto) Baso % (Auto) Neut # (Auto) Lymph # (Auto) Major # (Auto) Eos # (Auto) Baso # (Auto) Immature Gran # (Auto) PT INR Sample Site POC pH POC pCO2 POC pO2 POC HCO3 POC Total CO2 POC Base Excess ABG pH (Temp Correct) ABG pCO2 (Temp Corrct POC ABG pO2 at Pt Temp POC ABG O2 Sat Antonio Test O2 Delivery Device POC Sodium Sodium POC Potassium Potassium Chloride Carbon Dioxide Anion Gap BUN Creatinine Est Cr Clr Drug Dosing Est GFR ( Amer) Est GFR (Non-Af Amer) BUN/Creatinine Ratio Glucose POC Glucose 156 H Osmolality Lactate Calcium Phosphorus Magnesium Total Bilirubin Direct Bilirubin AST ALT Alkaline Phosphatase Total Creatine Kinase Troponin I High Sens 4074.0 H* D Total Protein Albumin Globulin Albumin/Globulin Ratio Lipase Procalcitonin TSH Prolactin Urine Color Urine Appearance Urine pH Ur Specific [place] Urine Protein Urine Glucose (UA) Urine Ketones Urine Blood Urine Nitrite Urine Bilirubin Urine Urobilinogen Ur Leukocyte Esterase Urine Osmolality Ur Random Creatinine Ur Random Sodium Ur Random Potassium Ur Random Chloride Nasal Screen MRSA (PCR) Salicylates < 3.0 L Urine Opiates Screen Ur Methadone, Qual Acetaminophen < 3 L Urine Barbiturates Ur Phencyclidine (PCP) U Amphetamin/Meth Scrn MDMA (Ecstasy) Screen U Benzodiazepines Scrn Ur Cocaine Metabolite U Marijuana (THC) Screen Ethyl Alcohol mg/dL Hepatitis C Ab (EIA) Hep C Ab Signal/Cutoff SARS-CoV-2, RNA, NAAT 05/29/21 05/29/21 05/29/21 19:30 19:30 19:30 WBC RBC Hgb POC Hgb Hct POC Hct MCV MCH MCHC RDW Std Deviation RDW Coeff of Kaya Plt Count MPV Immature Gran % (Auto) Neut % (Auto) Lymph % (Auto) Major % (Auto) Eos % (Auto) Baso % (Auto) Neut # (Auto) Lymph # (Auto) Major # (Auto) Eos # (Auto) Baso # (Auto) Immature Gran # (Auto) PT INR Sample Site POC pH POC pCO2 POC pO2 POC HCO3 POC Total CO2 POC Base Excess ABG pH (Temp Correct) ABG pCO2 (Temp Corrct POC ABG pO2 at Pt Temp POC ABG O2 Sat Antonio Test O2 Delivery Device POC Sodium Sodium 136 POC Potassium Potassium 3.6 Chloride 102 Carbon Dioxide 21 Anion Gap 13 H BUN 7 Creatinine 0.88 Est Cr Clr Drug Dosing 43.5 Est GFR ( Amer) 100.2 Est GFR (Non-Af Amer) 86.4 BUN/Creatinine Ratio 8.0 L Glucose 169 H POC Glucose Osmolality 289 Lactate Calcium 8.1 L Phosphorus Magnesium Total Bilirubin 0.7 Direct Bilirubin AST 128 H ALT 137 H Alkaline Phosphatase 230 H Total Creatine Kinase Troponin I High Sens Total Protein 5.9 L Albumin 3.1 L Globulin 2.8 Albumin/Globulin Ratio 1.1 Lipase Procalcitonin TSH Prolactin Urine Color Urine Appearance Urine pH Ur Specific [place] Urine Protein Urine Glucose (UA) Urine Ketones Urine Blood Urine Nitrite Urine Bilirubin Urine Urobilinogen Ur Leukocyte Esterase Urine Osmolality Ur Random Creatinine Ur Random Sodium Ur Random Potassium Ur Random Chloride Nasal Screen MRSA (PCR) Salicylates Urine Opiates Screen Ur Methadone, Qual Acetaminophen Urine Barbiturates Ur Phencyclidine (PCP) U Amphetamin/Meth Scrn MDMA (Ecstasy) Screen U Benzodiazepines Scrn Ur Cocaine Metabolite U Marijuana (THC) Screen Ethyl Alcohol mg/dL Hepatitis C Ab (EIA) Pending Hep C Ab Signal/Cutoff Pending SARS-CoV-2, RNA, NAAT 05/29/21 05/29/21 05/29/21 19:30 21:06 23:57 WBC RBC Hgb POC Hgb Hct POC Hct MCV MCH MCHC RDW Std Deviation RDW Coeff of Kaya Plt Count MPV Immature Gran % (Auto) Neut % (Auto) Lymph % (Auto) Major % (Auto) Eos % (Auto) Baso % (Auto) Neut # (Auto) Lymph # (Auto) Major # (Auto) Eos # (Auto) Baso # (Auto) Immature Gran # (Auto) PT INR Sample Site POC pH POC pCO2 POC pO2 POC HCO3 POC Total CO2 POC Base Excess ABG pH (Temp Correct) ABG pCO2 (Temp Corrct POC ABG pO2 at Pt Temp POC ABG O2 Sat Antonio Test O2 Delivery Device POC Sodium Sodium POC Potassium Potassium Chloride Carbon Dioxide Anion Gap BUN Creatinine Est Cr Clr Drug Dosing Est GFR ( Amer) Est GFR (Non-Af Amer) BUN/Creatinine Ratio Glucose POC Glucose 145 H 144 H Osmolality Lactate 3.8 H* Calcium Phosphorus Magnesium Total Bilirubin Direct Bilirubin AST ALT Alkaline Phosphatase Total Creatine Kinase Troponin I High Sens Total Protein Albumin Globulin Albumin/Globulin Ratio Lipase Procalcitonin TSH Prolactin Urine Color Urine Appearance Urine pH Ur Specific [place] Urine Protein Urine Glucose (UA) Urine Ketones Urine Blood Urine Nitrite Urine Bilirubin Urine Urobilinogen Ur Leukocyte Esterase Urine Osmolality Ur Random Creatinine Ur Random Sodium Ur Random Potassium Ur Random Chloride Nasal Screen MRSA (PCR) Salicylates Urine Opiates Screen Ur Methadone, Qual Acetaminophen Urine Barbiturates Ur Phencyclidine (PCP) U Amphetamin/Meth Scrn MDMA (Ecstasy) Screen U Benzodiazepines Scrn Ur Cocaine Metabolite U Marijuana (THC) Screen Ethyl Alcohol mg/dL Hepatitis C Ab (EIA) Hep C Ab Signal/Cutoff SARS-CoV-2, RNA, NAAT 05/30/21 05/30/21 05/30/21 00:35 05:08 05:08 WBC 24.57 H RBC 3.61 L Hgb 12.4 L POC Hgb Hct 37.0 L POC Hct MCV 102.5 H MCH 34.3 H MCHC 33.5 RDW Std Deviation 60.4 H RDW Coeff of Kaya 16.1 H Plt Count 432 H MPV 10.1 Immature Gran % (Auto) 0.6 Neut % (Auto) 91.4 Lymph % (Auto) 3.5 Major % (Auto) 4.5 Eos % (Auto) 0.0 Baso % (Auto) 0.0 Neut # (Auto) 22.45 H Lymph # (Auto) 0.86 L Major # (Auto) 1.11 H Eos # (Auto) 0.00 Baso # (Auto) 0.01 Immature Gran # (Auto) 0.14 H PT INR Sample Site POC pH POC pCO2 POC pO2 POC HCO3 POC Total CO2 POC Base Excess ABG pH (Temp Correct) ABG pCO2 (Temp Corrct POC ABG pO2 at Pt Temp POC ABG O2 Sat Antonio Test O2 Delivery Device POC Sodium Sodium 132 L POC Potassium Potassium 3.6 Chloride 101 Carbon Dioxide 20 L Anion Gap 11 BUN 8 Creatinine 0.80 Est Cr Clr Drug Dosing 47.8 Est GFR ( Amer) 104.2 Est GFR (Non-Af Amer) 89.9 BUN/Creatinine Ratio 10.0 Glucose 199 H POC Glucose Osmolality Lactate Calcium 7.7 L Phosphorus 2.8 Magnesium 1.6 L Total Bilirubin 0.8 Direct Bilirubin 0.2 AST 91 H ALT 111 H Alkaline Phosphatase 202 H Total Creatine Kinase Troponin I High Sens 4685.4 H* 3850.1 H* Total Protein 5.7 L Albumin 3.0 L Globulin Albumin/Globulin Ratio Lipase Procalcitonin TSH Prolactin Urine Color Urine Appearance Urine pH Ur Specific [place] Urine Protein Urine Glucose (UA) Urine Ketones Urine Blood Urine Nitrite Urine Bilirubin Urine Urobilinogen Ur Leukocyte Esterase Urine Osmolality Ur Random Creatinine Ur Random Sodium Ur Random Potassium Ur Random Chloride Nasal Screen MRSA (PCR) Salicylates Urine Opiates Screen Ur Methadone, Qual Acetaminophen Urine Barbiturates Ur Phencyclidine (PCP) U Amphetamin/Meth Scrn MDMA (Ecstasy) Screen U Benzodiazepines Scrn Ur Cocaine Metabolite U Marijuana (THC) Screen Ethyl Alcohol mg/dL Hepatitis C Ab (EIA) Hep C Ab Signal/Cutoff SARS-CoV-2, RNA, NAAT 05/30/21 05/30/21 05:08 05:46 WBC RBC Hgb POC Hgb Hct POC Hct MCV MCH MCHC RDW Std Deviation RDW Coeff of Kaya Plt Count MPV Immature Gran % (Auto) Neut % (Auto) Lymph % (Auto) Major % (Auto) Eos % (Auto) Baso % (Auto) Neut # (Auto) Lymph # (Auto) Major # (Auto) Eos # (Auto) Baso # (Auto) Immature Gran # (Auto) PT INR Sample Site POC pH POC pCO2 POC pO2 POC HCO3 POC Total CO2 POC Base Excess ABG pH (Temp Correct) ABG pCO2 (Temp Corrct POC ABG pO2 at Pt Temp POC ABG O2 Sat Antonio Test O2 Delivery Device POC Sodium Sodium POC Potassium Potassium Chloride Carbon Dioxide Anion Gap BUN Creatinine Est Cr Clr Drug Dosing Est GFR ( Amer) Est GFR (Non-Af Amer) BUN/Creatinine Ratio Glucose POC Glucose 130 H Osmolality Lactate 2.7 H* Calcium Phosphorus Magnesium Total Bilirubin Direct Bilirubin AST ALT Alkaline Phosphatase Total Creatine Kinase Troponin I High Sens Total Protein Albumin Globulin Albumin/Globulin Ratio Lipase Procalcitonin TSH Prolactin Urine Color Urine Appearance Urine pH Ur Specific [place] Urine Protein Urine Glucose (UA) Urine Ketones Urine Blood Urine Nitrite Urine Bilirubin Urine Urobilinogen Ur Leukocyte Esterase Urine Osmolality Ur Random Creatinine Ur Random Sodium Ur Random Potassium Ur Random Chloride Nasal Screen MRSA (PCR) Salicylates Urine Opiates Screen Ur Methadone, Qual Acetaminophen Urine Barbiturates Ur Phencyclidine (PCP) U Amphetamin/Meth Scrn MDMA (Ecstasy) Screen U Benzodiazepines Scrn Ur Cocaine Metabolite U Marijuana (THC) Screen Ethyl Alcohol mg/dL Hepatitis C Ab (EIA) Hep C Ab Signal/Cutoff SARS-CoV-2, RNA, NAAT
--- NOTE | 2021-05-30 11:49 | Communication Note ---
Date of Service: May 30, 2021 I evaluated Destin today at the bedside and discussed his case with nursing personnel who have been attending him since admission. I refer the reader to my summary note of yesterday which was completed utilizing chart review He is a 70-year-old man who is status post decompressive surgery on the cervical spine for what is probably a cervical myelopathy manifested by gait disturbance. He has chronic ethanol use of moderate volume and had his last alcohol apparently back on May 20 He is known to have some hypertension dyslipidemia hypothyroidism, chronic pain coronary diseaseand his medications at home apparently include aspirin acetaminophen atorvastatin cevimeline Celexa docusate famotidine gabapentin levothyroxine methadone and nortriptyline Is not clear how compliant he has been with medications He has no known drug allergies Review of systems cannot be obtained Family history is as outlined in chart In this setting he was found unresponsive and a single seizure-like event was witnessed by the broadcast engineer. He was intubated but does not require ventilatory support A host of imaging and laboratory studies have demonstrated the presence of multiple areas of embolic infarction predominantly involving the right hemisphere but bihemispheric as well and involving both anterior and posterior circulations. He has a moderately severe hypokinetic segment on echocardiography which may have been the source of this embolic shower and he is about to start on heparin as per cardiology and ICU medicine. He is still on Keppra for what may have been a postinfarction seizure at 500 mg twice a day but his EEG is at most mildly abnormal and certainly shows no potentially epileptogenic activity He does have a high white count elevated liver enzymes and a high troponin possibly due to acute illness but possibly also related to an acute myocardial infarction. I defer to cardiology on this latter diagnosis Currently his blood pressure is 148/104 pulse is 89 respiration of 26 he is afebrile on room air He is stuporous will open eyes to some degree and when he does has strong eye deviation to the right which is consistent with his large left occipital infarction and he has increased tone in the right arm mild left hemiparesis and both lower extremities appear to have increased tone and extensor toe signs but this may reflect a prior myelopathy The entire picture thus far is consistent with multiple embolization likely of cardiogenic source and clinically he has extensive right greater than left hemispheric disease involving both anterior and posterior circulations and his prognosis for a reasonable recovery unfortunately appears to be somewhat limited although only time will tell His gait issue may well be limited already by the presence of a compressive cervical myelopathy He is going to need rehabilitation likely long-term and while here in the hospital will need to be seen by physical therapy and Occupational Therapy. The possibility of superimposed sepsis or endocarditis is being entertained but I think is unlikely. His seizure will probably need to be treated with anticonvulsants for 6 months to a year as clinically it seems to have occurred in the setting of an acute stroke and the risk of recurrence may be somewhat lower in that situation. He probably is past the point of alcohol withdrawal issues if indeed the history of his last alcohol intake being correct but I think he should be observed and obviously multivitamins etc. administered as he does appear to be slightly under nourished and already has macrocytosis What form of long-term anticoagulation is required has not yet been established. He may yet demonstrate paroxysmal atrial fibrillation as he certainly has some risk factors for that with his ethanolism and other vascular risk factors he was theoretically taking aspirin at home so the current embolic shower was clearly not prevented by this therapy nor would I have expected it to be effective. The question of a novel oral anticoagulant, Coumadin etc. long-term remain and will defer to cardiology obviously on this choice Neurology will continue to make some visits to the bedside but for now I do not think we have a whole lot more to offer and I anticipate we will be signing off the case in the next several days once we have a chance to see how much recovery he is going to demonstrate Flako Kohler MD The above note was generated utilizing voice recognition technology and may have spelling errors punctuation errors pronoun usage years and syntax errors
[2021-05-30] MEDS ORDERED: HEPARIN SODIUM/DEXTROSE 25,000 UNITS/500 ML BAG IV SCH (12:00)
[2021-05-30] MEDS ORDERED: Heparin IV Adult Wt-Based Standard *NO* Bolus Protocol ONE (12:00)
--- NOTE | 2021-05-30 13:27 | Pharmacy Report ---
Pharmacy Glycemic Short Note 2 - Date of Service May 30, 2021 - Glycemic Short BSG Results (Last 24 hours): 05/29/21 05/29/21 05/29/21 18:17 19:30 21:06 Glucose 169 H POC Glucose 156 H 145 H 05/29/21 05/30/21 05/30/21 23:57 05:08 05:46 Glucose 199 H POC Glucose 144 H 130 H 05/30/21 11:23 Glucose POC Glucose 137 H OUTPATIENT ANTIDIABETIC REGIMEN: * n/a ASSESSMENT: * 70 year old admitted with AMS/secondary to possible stroke. Currently NPO * Received total of 7 units of insulin yesterday. Fasting BSG 130 mg/dL - will continue with only SSI for today, may add basal scale on for HS if BSGs trending upward PLAN FOR INPATIENT GLYCEMIC CONTROL: * Hold outpatient oral diabetes medications * Basal insulin * Lantus 0-5 units HS * Bolus insulin * NovoLog per scale ACHS or Q6hrs while NPO * Goal Range: Low 140 mg/dL - High 180 mg/dL * Correction Factor: 60 mg/dL/unit * Nutritional / Prandial insulin per carb ratio of 1 unit per 20 grams CHO consumed
[2021-05-30] MEDS: METOPROLOL TARTRATE 25 MG TAB PO SCH ×2 (13:28→20:09)
--- NOTE | 2021-05-30 13:47 | Surgery Consultation ---
Date of Consultation May 30, 2021 Assessment & Plan (1) Elevated LFTs: I agree with Dr. Boyd from gastroenterology. Doubt the elevated LFTs are from cholangitis or stones. Regardless patient would not be a surgical candidate currently for ERCP or cholecystectomy. Suspect the majority of his issues are from his central nervous system infarcts. If his status changes or there are any new concerns please contact us we will sign off for now. 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 Patient with elevated LFTs however normal bilirubin. MRCP with possible common bile duct stone although no common duct dilation. Consult to evaluate sludge/stones in the gallbladder. Patient currently obtunded and unable to answer questions. All history obtained from the chart. The chart was reviewed Allergies Allergy/AdvReac Type Severity Reaction Status Date / Time No Known Allergies Allergy Verified 05/29/21 14:40 Home Medications Medication Instructions Recorded Confirmed Type acetaminophen 325 mg tablet 650 mg PO TID 10/28/20 05/29/21 History (Tylenol) atorvastatin 40 mg tablet (Lipitor) 40 mg PO QAM 10/28/20 05/29/21 History gabapentin 800 mg tablet 800 mg PO TID 10/28/20 05/29/21 History methadone 10 mg tablet 10 mg PO BID PRN 10/28/20 05/29/21 History nortriptyline 10 mg capsule 10 mg PO HS 10/28/20 05/29/21 History (Pamelor) aspirin 81 mg tablet,delayed 81 mg PO DAILY 05/04/21 05/29/21 History release cevimeline 30 mg capsule 30 mg PO TID 05/29/21 05/29/21 History citalopram 20 mg tablet 20 mg PO DAILY 05/29/21 05/29/21 History docusate sodium 100 mg capsule 100 mg PO BID 05/29/21 05/29/21 History esomeprazole magnesium 40 mg 40 mg PO DAILY 05/29/21 05/29/21 History capsule,delayed release famotidine 20 mg tablet 20 mg PO DAILY PRN 05/29/21 05/29/21 History levothyroxine 112 mcg tablet 112 mcg PO DAILYBB 05/29/21 05/29/21 History Patient History Medical History (Updated 05/30/21 @ 13:45 by Kranthi Elizabeth, DO) Anemia CAD (coronary artery disease) 2010- [facility] showed patent LAD and LCX stents, mild RCA disease per cardio records [place]- approx 15 years ago, total of 4 stents over time- most recent stent [address] 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 Decker in [place] Surgical History (Updated 05/29/21 @ 16:38 by RHIANNON Flanagan) H/O hand surgery "L hand traumatic injury repair around 1995" H/O neck surgery Hx of cardiac cath heart attack 15 years, total of [address] Chaney in [place] Hx of colonoscopy Family History Mother Hypothyroidism Father Heart disease Social History Smoking Status: Former smoker Second Hand Exposure: No; Hx Alcohol Use: Yes Alcohol type: hard liquor Hx Substance Use: No Preferred Language: [place] Communication Ability: Impaired College Instructor Required: No Beliefs That Will Affect Care: None Current Living Situation: Alone Current Living Situation Comment: Unsafe situation Other Information That Helps Us Care for You: No Feels Safe at Home: No Is there a partner from a previous relationship who is making you feel unsafe now?: No Any Concerns about Your Family Situation: No Would You Like to Speak to Someone About Your Situation: No Assistive Devices: Walker Physical Exam Eyes: PERRL, conjunctivae normal, anicteric sclerae EOM intact bilaterally ENMT: external ear and nose normal, oropharynx normal Ears: no hearing impairment Neck: trachea midline, no thyromegaly Respiratory: normal respiratory effort; no respiratory distress and does not use accessory muscles Gastrointestinal (Abdomen): Soft. No palpable abnormalities. Nondistended. Skin: no rashes, warm and dry Psychiatric: Orientation: alert, oriented x 3 and cooperative Results & Data ([facility]) Vital Signs (Past 12 Hours) Vital Signs Temp Pulse Resp BP Pulse Ox 05/30/21 13:00 83 26 H 154/111 H 97 05/30/21 12:00 77 23 150/106 H 97 05/30/21 11:24 89 148/104 H 05/30/21 11:00 85 23 148/104 H 97 05/30/21 10:00 86 24 145/97 H 96 05/30/21 09:00 87 25 H 140/98 96 05/30/21 08:00 87 20 139/93 97 05/30/21 07:00 83 25 H 147/95 H 96 05/30/21 06:00 84 26 H 146/92 H 96 05/30/21 05:30 85 28 H 98 05/30/21 05:00 80 26 H 135/90 97 05/30/21 04:30 95 H 27 H 96 05/30/21 04:27 91 H 155/106 H 05/30/21 04:00 37.4 C 92 H 28 H 155/106 H 96 05/30/21 03:00 87 26 H 148/100 H 96 05/30/21 02:30 94 H 28 H 95 05/30/21 02:00 38.4 C H 91 H 30 H 155/104 H 95 PG Care Time/CCT Total # of Minutes Spent Total Time Spent with Patient: Total time spent is greater than 50% in coordination of care (as documented) at patient's floor/unit and/or counseling patient: Coding Level of Care Code 42915 Initial Inpt Care Lvl 3 Diagnoses Elevated LFTs R79.89 Metabolic encephalopathy G93.41 Cholelithiasis K80.20
--- NOTE | 2021-05-30 15:23 | Hospitalist Progress Note ---
Date of Service May 30, 2021 Assessment & Plan (1) Metabolic encephalopathy: (2) CAD (coronary artery disease): (3) Elevated troponin I level: (4) Elevated LFTs: (5) Carotid stenosis: (6) H/O neck surgery: (7) Chronic pain: (8) DVT prophylaxis: Plan: Acute metabolic encephalopathy likely due to acute embolic stroke?cardiogenic vs from carotid artery stenosis- MRI brain with bilateral infarcts suggesting shower emboli. CTA head/neck shows bilateral atherosclerotic plaque with 80-90% stenosis. Echo with no vegetations but apical hypokinesia.EEG negative for seizure. UDS negative. - Neuro and front office coordinator managing - Started on heparin drip Leucocytosis with lactic acidosis- Could be reactive from stroke and seizure but on empiric antibiotic as infection not definitively ruled out yet. Fever noted. Follow final clx results. Elevated trop with apical hypokinesia-Echo reviewed. Cardio following- ACS vs stress mediated- trop peaked. Continue tele. Seizure- witnessed by EMS- on keppra per neuro for at least 6-12 months. EEG was negative for any epileptogenic activity. HTN- on iv lopressor. Elevated LFTs- Improving. CT and MRCP reviewed. Seen by GI- recommendations noted. COPD- not in exacerbation. Nebs prn Recent neck surgery S/p ACDF C4-C5 by Dr. Allen on 05/04 DVT prophylaxis- heparin drip Dispo- Remains in ICU Prognosis guarded Admission and Anticipated Discharge Date Admission Date: May 29, 2021 Subjective Seen and examined at bedside. Remains stuporous and unresponsive. Fever noted. Review of Systems Review of Systems: Unobtainable due to reduced consciousness Physical Exam Physical Exam: Vitals stable General: Stuporous, unresponsive. [place] feed tube in place HEENT: Right gaze and nsytagmus noted. Chest: Fair breath sounds anteriorly CVS: Regular, normal heart sounds, no murmur Abdomen: Soft, not distended, normal bowel sounds Neuro: Stuporous. Extremities: No edema or rash. Calix with laura urine. Results & Data Results & Data ([facility]) Vital Signs (Past 12 Hours) Vital Signs Temp Pulse Resp BP Pulse Ox 05/30/21 14:00 77 22 149/104 H 96 05/30/21 13:00 83 26 H 154/111 H 97 05/30/21 12:00 77 23 150/106 H 97 05/30/21 11:24 89 148/104 H 05/30/21 11:00 85 23 148/104 H 97 05/30/21 10:00 86 24 145/97 H 96 05/30/21 09:00 87 25 H 140/98 96 05/30/21 08:00 87 20 139/93 97 05/30/21 07:00 83 25 H 147/95 H 96 05/30/21 06:00 84 26 H 146/92 H 96 05/30/21 05:30 85 28 H 98 05/30/21 05:00 80 26 H 135/90 97 05/30/21 04:30 95 H 27 H 96 05/30/21 04:27 91 H 155/106 H 05/30/21 04:00 37.4 C 92 H 28 H 155/106 H 96 Laboratory Results Short CBC 05/30/21 Range/Units 05:08 WBC 24.57 H (4.8-10.8) K/uL Hgb 12.4 L (14.0-18.0) g/dL Hct 37.0 L (42-52) % Plt Count 432 H (130-400) K/uL BMP 05/29/21 05/30/21 19:30 05:08 Sodium 136 132 L Potassium 3.6 3.6 Chloride 102 101 Carbon Dioxide 21 20 L BUN 7 8 Creatinine 0.88 0.80 Glucose 169 H 199 H Calcium 8.1 L 7.7 L Liver Function 05/29/21 05/30/21 Range/Units 19:30 05:08 Total Bilirubin 0.7 0.8 (0.2-1.0) mg/dl Direct Bilirubin 0.2 (0-0.2) mg/dl AST 128 H 91 H (13-39) U/L ALT 137 H 111 H (7-52) U/L Alkaline Phosphatase 230 H 202 H (34-104) U/L Albumin 3.1 L 3.0 L (3.4-5.0) gm/dl Diagnostic Findings KUB X-Ray 05/30/21 09:02 KUB HISTORY: Status post placement of a feeding tube Coresafe placement COMPARISON: CT abdomen and pelvis 05/29/2021 FINDINGS: Status post placement of a feeding tube, distal tip projected over the gastric fundus. The left lateral abdomen and lower pelvis are excluded from the [id number]. Air-filled loops of large and small bowel are noted. No renal calculi. No ureteral calculi. No pneumoperitoneum or pneumatosis. Degenerative changes of the spine. Bibasilar pulmonary opacities. No fracture. IMPRESSION: 1. Distal tip of feeding tube projects over the gastric fundus. 2. Bibasilar opacities suggest atelectasis versus pneumonitis. ACT 112: Negative or not required by law. The above report was generated using voice recognition software. It may contain grammatical, syntax or spelling errors. Electronically signed by: Matti Thornton M.D. 05/30/2021 10:51 AM Medications Administered Current Inpatient Medications Sodium Chloride (Nss 1000ml) 1,000 mls @ 125 mls/hr IV .Q8H JUAN Stop: 06/28/21 15:14 Last Admin: 05/30/21 08:41 Dose: 125 mls/hr Documented by: Pantoprazole Sodium 40 mg/ (Syringe) 10 mls @ 5 mls/min IV DAILY@1100 JUAN Stop: 06/29/21 10:59 Last Admin: 05/30/21 10:50 Dose: 5 mls/min Documented by: Levetiracetam 1,000 mg/ Sodium (Chloride) 110 mls @ 440 mls/hr IV Q12H JUAN Stop: 06/28/21 22:59 Last Infusion: 05/30/21 11:21 Dose: Infused Documented by: Ampicillin Sodium 2,000 mg/ (Sodium Chloride) 100 mls @ 200 mls/hr IV Q6H JUAN Stop: 06/08/21 16:59 Last Infusion: 05/30/21 11:19 Dose: Infused Documented by: Vancomycin HCl 500 mg/ (Dextrose) 110 mls @ 132 mls/hr IV Q12H JUAN Stop: 06/08/21 03:59 Last Infusion: 05/30/21 05:43 Dose: Infused Documented by: Acetaminophen (Ofirmev) 60 mls @ 260 mls/hr IV Q8H PRN; Protocol PRN Reason: Temp >100.4 Stop: 06/02/21 02:26 Last Infusion: 05/30/21 02:55 Dose: Infused Documented by: Heparin Sodium/Dextrose (Heparin Sodium/Dextrose) 25,000 units in 500 mls @ 17 mls/hr IV .Q24H [facility]; Protocol Stop: 06/29/21 11:04 Last Admin: 05/30/21 10:52 Dose: 850 units/hr, 17 mls/hr Documented by: Cefepime HCl 2,000 mg/ Syringe 20 mls @ 5 mls/min IV Q12H [facility]; Protocol Stop: 06/09/21 20:59 Insulin Aspart (Insulin Aspart Per Unit) 0 units SC Q6 [facility]; Protocol Stop: 06/29/21 00:00 Last Admin: 05/30/21 11:24 Dose: Not Given Documented by: Insulin Glargine (Insulin Glargine Solostar 100 Units/Ml 3 Ml Pen) 0 units SC HS [facility]; Protocol Stop: 06/29/21 20:59 Metoprolol Tartrate (Metoprolol Tartrate 1 Mg/Ml Vial) 5 mg IV Q4 [facility]; Protocol Stop: 06/29/21 11:59 Last Admin: 05/30/21 11:24 Dose: 5 mg Documented by: Metoprolol Tartrate (Metoprolol Tartrate 25 Mg Tab) 25 mg PO TID [facility] Stop: 06/29/21 13:59 Last Admin: 05/30/21 13:28 Dose: 25 mg Documented by: Midazolam HCl (Midazolam Hcl 1 Mg/Ml 2ml Vial) 2 mg IV Q2H PRN PRN Reason: seizure Stop: 06/28/21 16:12 Miscellaneous (Icu Protocol For Hyperglycemia) 1 ea N/A PRN PRN; Protocol PRN Reason: Hyperglycemia Protocol Stop: 05/31/21 14:42 Miscellaneous Information (Vancomycin Consult Active) 1 ea N/A UD PRN PRN Reason: Consult Stop: 06/28/21 13:42 Miscellaneous Information (Pharmacy Glycemic Mgmt Consult) 1 ea N/A UD PRN PRN Reason: Consult Stop: 06/28/21 21:24
[2021-05-30 18:11] LABS: Partial Thromboplastin Ratio 3.1
[2021-05-30 18:13] LABS: Partial Thromboplastin Time 83.9 Seconds (21.0-31.0)
[2021-05-30] MEDS ORDERED: INSULIN GLARGINE SOLOSTAR 100 UNITS/ML 3 ML PEN SC SCH (21:00)
[2021-05-30] MEDS ORDERED: INSULIN ASPART PER UNIT SC SCH (21:30)
[2021-05-31 00:52] LABS: Partial Thromboplastin Ratio 2.5
[2021-05-31] MEDS: INSULIN ASPART PER UNIT SC SCH ×4 (01:20→17:37)
[2021-05-31 01:51] LABS: Partial Thromboplastin Time 69.5 Seconds (21.0-31.0)
[2021-05-31] MEDS ORDERED: VANCOMYCIN TROUGH ONE (03:30)
[2021-05-31 03:55] LABS: Hematocrit (blood only) 36.7 % (42-52); Hemoglobin 12.4 g/dL (14.0-18.0); Mean Corpuscular Hemoglobin 34.5 pg (25-34); Mean Corpuscular Hgb Conc 33.8 g/dL (32-36); Mean Corpuscular Volume 102.2 fL (80-100); Mean Platelet Volume 10.5 fL (7.4-10.4); Platelet Count 454 K/uL (130-400); RDW Coefficient of Variation 15.9 % (11.5-14.5); RDW Standard Deviation 59.9 fL (36.4-46.3); Red Blood Count 3.59 M/uL (4.7-6.1); White Blood Count 26.83 K/uL (4.8-10.8)
[2021-05-31 04:17] LABS: Albumin Level 2.7 gm/dl (3.4-5.0); BUN Creatinine Ratio 15.5 (10-20); Basophils # (auto) 0.02 K/uL (0-0.2); Basophils % (auto) 0.1 %; Bilirubin Direct 0.2 mg/dl (0-0.2); Bilirubin,Total 0.8 mg/dl (0.2-1.0); Calcium 7.3 mg/dl (8.5-10.1); Creatinine Clr Calc Pharmacy 54.8 ml/min; Est GFR (African American) 102.1 ml/min; Est GFR (Non-African American) 88.1 ml/min; Immature Granulocytes # (auto) 0.15 K/uL (0.00-0.02); Immature Granulocytes % (auto) 0.6 %; Lymphocytes % (auto) 3.7 %; Magnesium 1.8 mg/dl (1.7-2.4); Monocytes % (auto) 5.2 %; Neutrophils # (auto) 24.26 K/uL (1.4-6.5); Neutrophils % (auto) 90.4 %; Phosphorus 3.4 mg/dl (2.5-4.9); Potassium 3.8 mmol/L (3.5-5.1); Total Protein 5.3 gm/dl (6.0-8.3)
[2021-05-31 04:26] LABS: Troponin I High Sensitivity 1446.1 pg/ml (0-20)
[2021-05-31] MEDS: VANCOMYCIN HCL 500 MG in DEXTROSE 5% 100 ML IV SCH (04:50)
[2021-05-31] MEDS: AMPICILLIN 2,000 MG in SODIUM CHLOR 0.9% AD-VAN 100 ML IV SCH (04:51)
[2021-05-31] MEDS: SODIUM CHLORIDE 0.9% 1000ML 1,000 ML IV SCH ×3 (04:51→21:07)
--- NOTE | 2021-05-31 07:49 | Critical Care Progress Note ---
Date of Service May 31, 2021 Assessment & Plan (1) Metabolic encephalopathy: (2) Stroke: (3) CAD (coronary artery disease): Plan: Neurologic: Encephalopathy likely secondary to stroke. MRI brain consistent with bilateral infarcts suggesting shower emboli. Echo with apical kinesis. Will defer further work-up to neurology and cardiology. Continue antiepileptic medications per neurology. Pulmonary: Patient saturating well on room air. No significant concerns at this time. Continue aspiration precautions. Cardiovascular: Echo with concerning findings for apical infarct. Cardiology recommending continued anticoagulation given the possibility of an embolic phenomenon from the heart. Continue heparin infusion. Gastrointestinal: Bowel regimen if on analgesics: Stress ulcer prophylaxis: Renal: No significant issues at present. Infectious disease: No clear signs of infection. Urinalysis and blood cultures negative for 48 hours. Pro-Rah mildly elevated on 05/29/2021. We will repeat a Pro-Rah today and if negative will discontinue antibiotics. Will discontinue vancomycin and cefepime at this time. Vancomycin MRSA screen -05/29. Continue Unasyn for the time being. Hematologic: No issues. Endocrine: Normal TSH. Continue to monitor glucose closely. Lines and tubes: NG tube, Calix and peripheral IVs in place. VTE prophylaxis: Heparin infusion CODE STATUS: DNR/DNI. Palliative care consulted. Family at bedside: Not available at bedside. Disposition: Likely downgrade to PCU status. Thank you for allowing us to participate in the care of this patient. Admission and Anticipated Discharge Date Admission Date: May 29, 2021 Subjective Patient seen and examined this morning. Nonresponsive to verbal commands. NG tube in place. Appears to be maintaining airway. No apparent distress. No concerns overnight by nursing. Vital signs stable. Review of Systems Review of Systems: Unobtainable due to cognitive status Physical Exam Physical Exam: Constitutional: Patient largely nonverbal. Does not appear to be in any distress. Eyes: Pupils are equal round and reactive to light. Conjunctivae are normal. Anicteric sclera. Ears nose, mouth and throat: NG tube in place. Neck: Trachea is midline. Visual inspection is normal. Respiratory: Mildly diminished at the bases bilaterally. Cardiovascular: Regular rate and rhythm. No murmurs. No edema. Gastrointestinal: Normal bowel sounds, soft, nontender and nondistended. No hepatosplenomegaly noted. Musculoskeletal: No cyanosis. Patient is able to move all extremities. Skin: No rashes, warm dry and intact. Neurologic: Nonresponsive to verbal commands. Right gaze preference. Psychiatric: Unable to assess Results & Data Results & Data ([facility]) Vital Signs (Past 12 Hours) Vital Signs Temp Pulse Resp BP Pulse Ox 05/31/21 06:00 63 17 143/92 H 97 05/31/21 05:00 69 29 H 150/95 H 96 05/31/21 04:00 36.9 C 71 29 H 150/100 H 96 05/31/21 03:00 68 25 H 153/95 H 91 05/31/21 02:00 70 27 H 152/99 H 95 05/31/21 01:00 65 23 149/95 H 90 05/31/21 00:00 37.2 C 67 24 146/93 H 93 05/30/21 23:00 75 31 H 149/100 H 92 05/30/21 22:00 64 21 141/94 H 95 05/30/21 21:00 69 22 139/97 94 05/30/21 20:00 37.1 C 73 26 H 141/93 H 95 Coding Level of Care Code 72729 Subseq Hosp Care Lvl 2 Diagnoses Metabolic encephalopathy G93.41 Stroke I63.9 CAD (coronary artery disease) I25.10
[2021-05-31] MEDS: METOPROLOL TARTRATE 25 MG TAB PO SCH ×3 (08:44→21:07)
[2021-05-31 08:53] LABS: Partial Thromboplastin Time 54.8 Seconds (21.0-31.0)
--- NOTE | 2021-05-31 09:33 | Cardiology Progress Note ---
Date of Service May 31, 2021 Assessment & Plan (1) AMS (altered mental status): (2) Elevated troponin I level: (3) CAD (coronary artery disease): (4) PAF (paroxysmal atrial fibrillation): (5) Stroke: Plan: The patient is hemodynamically stable and currently in a sinus mechanism.He has been anticoagulated with heparin. At this point it will be supportive care both short and long-term. Admission and Anticipated Discharge Date Admission Date: May 29, 2021 Subjective The patient is comfortable but not responsive. Review of Systems Review of Systems: Unobtainable Physical Exam Physical Exam: General: Not responsive Head: normocephalic, no masses, lesions, tenderness or abnormalities Eyes: conjunctiva are pink and non-injected, sclera clear Neck: supple, no adenopathy, no bruits, normal jugular venous pulse, no hepatojugular reflux Chest: normal shape and normal respiratory effort Lungs: clear to auscultation and percussion Cardiac Exam: - regular rate & rhythm, no murmurs gallops or rubs - normal S1, normal S2 Pulses: 2(+) throughout Abdomen: abdomen soft, non-tender, no abnormal masses and no hepatosplenomegaly Musculoskeletal: no gait disturbance, no joint inflammation, no deforming arthritis Extremities: no edema and no cyanosis Neuro: grossly normal exam Results & Data ([facility]) Vital Signs (Past 12 Hours) Vital Signs Temp Pulse Resp BP Pulse Ox 05/31/21 09:00 71 24 152/100 H 97 05/31/21 08:00 36.9 C 65 20 141/91 H 97 05/31/21 07:00 77 27 H 153/123 H 97 05/31/21 06:00 63 17 143/92 H 97 05/31/21 05:00 69 29 H 150/95 H 96 05/31/21 04:00 36.9 C 71 29 H 150/100 H 96 05/31/21 03:00 68 25 H 153/95 H 91 05/31/21 02:00 70 27 H 152/99 H 95 05/31/21 01:00 65 23 149/95 H 90 05/31/21 00:00 37.2 C 67 24 146/93 H 93 05/30/21 23:00 75 31 H 149/100 H 92 05/30/21 22:00 64 21 141/94 H 95 Laboratory Results Laboratory Results - last 24 hr 05/30/21 05/30/21 05/30/21 11:23 17:24 18:13 WBC RBC Hgb Hct MCV MCH MCHC RDW Std Deviation RDW Coeff of Kaya Plt Count MPV Immature Gran % (Auto) Neut % (Auto) Lymph % (Auto) [place] % (Auto) Eos % (Auto) Baso % (Auto) Neut # (Auto) Lymph # (Auto) [place] # (Auto) Eos # (Auto) Baso # (Auto) Immature Gran # (Auto) APTT 83.9 H* PTT Ratio 3.1 Sodium Potassium Chloride Carbon Dioxide Anion Gap BUN Creatinine Est Cr Clr Drug Dosing Est GFR ( Amer) Est GFR (Non-Af Amer) BUN/Creatinine Ratio Glucose POC Glucose 137 H 111 H Calcium Phosphorus Magnesium Total Bilirubin Direct Bilirubin AST ALT Alkaline Phosphatase Troponin I High Sens Total Protein Albumin Procalcitonin Vancomycin Trough 05/30/21 05/31/21 05/31/21 20:02 00:15 01:16 WBC RBC Hgb Hct MCV MCH MCHC RDW Std Deviation RDW Coeff of Kaya Plt Count MPV Immature Gran % (Auto) Neut % (Auto) Lymph % (Auto) [place] % (Auto) Eos % (Auto) Baso % (Auto) Neut # (Auto) Lymph # (Auto) [place] # (Auto) Eos # (Auto) Baso # (Auto) Immature Gran # (Auto) APTT 69.5 H* PTT Ratio 2.5 Sodium Potassium Chloride Carbon Dioxide Anion Gap BUN Creatinine Est Cr Clr Drug Dosing Est GFR ( Amer) Est GFR (Non-Af Amer) BUN/Creatinine Ratio Glucose POC Glucose 93 115 H Calcium Phosphorus Magnesium Total Bilirubin Direct Bilirubin AST ALT Alkaline Phosphatase Troponin I High Sens Total Protein Albumin Procalcitonin Vancomycin Trough 05/31/21 05/31/21 05/31/21 03:35 03:35 03:35 WBC 26.83 H RBC 3.59 L Hgb 12.4 L Hct 36.7 L MCV 102.2 H MCH 34.5 H MCHC 33.8 RDW Std Deviation 59.9 H RDW Coeff of Kaya 15.9 H Plt Count 454 H MPV 10.5 H Immature Gran % (Auto) 0.6 Neut % (Auto) 90.4 Lymph % (Auto) 3.7 [place] % (Auto) 5.2 Eos % (Auto) 0.0 Baso % (Auto) 0.1 Neut # (Auto) 24.26 H Lymph # (Auto) 1.00 L [place] # (Auto) 1.40 H Eos # (Auto) 0.00 Baso # (Auto) 0.02 Immature Gran # (Auto) 0.15 H APTT PTT Ratio Sodium 134 L Potassium 3.8 Chloride 104 Carbon Dioxide 19 L Anion Gap 11 BUN 13 Creatinine 0.84 Est Cr Clr Drug Dosing 54.8 Est GFR ( Amer) 102.1 Est GFR (Non-Af Amer) 88.1 BUN/Creatinine Ratio 15.5 Glucose 114 H POC Glucose Calcium 7.3 L Phosphorus 3.4 Magnesium 1.8 Total Bilirubin 0.8 Direct Bilirubin 0.2 AST 43 H ALT 71 H Alkaline Phosphatase 159 H Troponin I High Sens 1446.1 H* D Total Protein 5.3 L Albumin 2.7 L Procalcitonin Vancomycin Trough 10.5 05/31/21 05/31/21 05/31/21 05:04 07:35 07:42 WBC RBC Hgb Hct MCV MCH MCHC RDW Std Deviation RDW Coeff of Kaya Plt Count MPV Immature Gran % (Auto) Neut % (Auto) Lymph % (Auto) [place] % (Auto) Eos % (Auto) Baso % (Auto) Neut # (Auto) Lymph # (Auto) [place] # (Auto) Eos # (Auto) Baso # (Auto) Immature Gran # (Auto) APTT 54.8 H* PTT Ratio 2.0 Sodium Potassium Chloride Carbon Dioxide Anion Gap BUN Creatinine Est Cr Clr Drug Dosing Est GFR ( Amer) Est GFR (Non-Af Amer) BUN/Creatinine Ratio Glucose POC Glucose 129 H Calcium Phosphorus Magnesium Total Bilirubin Direct Bilirubin AST ALT Alkaline Phosphatase Troponin I High Sens Total Protein Albumin Procalcitonin 0.24 Vancomycin Trough Medications Administered Current Inpatient Medications Sodium Chloride (Nss 1000ml) 1,000 mls @ 125 mls/hr IV .Q8H JUAN Stop: 06/28/21 15:14 Last Admin: 05/31/21 04:51 Dose: 125 mls/hr Documented by: Pantoprazole Sodium 40 mg/ (Syringe) 10 mls @ 5 mls/min IV DAILY@1100 JUAN Stop: 06/29/21 10:59 Last Admin: 05/30/21 10:50 Dose: 5 mls/min Documented by: Levetiracetam 1,000 mg/ Sodium (Chloride) 110 mls @ 440 mls/hr IV Q12H [facility] Stop: 06/28/21 22:59 Last Infusion: 05/30/21 22:32 Dose: Infused Documented by: Ampicillin Sodium 2,000 mg/ (Sodium Chloride) 100 mls @ 200 mls/hr IV Q6H JUAN Stop: 06/08/21 16:59 Last Infusion: 05/31/21 05:56 Dose: Infused Documented by: Acetaminophen (Ofirmev) 60 mls @ 260 mls/hr IV Q8H PRN; Protocol PRN Reason: Temp >100.4 Stop: 06/02/21 02:26 Last Infusion: 05/30/21 02:55 Dose: Infused Documented by: Heparin Sodium/Dextrose (Heparin Sodium/Dextrose) 25,000 units in 500 mls @ 15 mls/hr IV .Q24H JUAN; Protocol Stop: 06/29/21 11:04 Last Titration: 05/31/21 07:00 Dose: 750 units/hr, 15 mls/hr Documented by: Insulin Aspart (Insulin Aspart Per Unit) 0 units SC Q6 JUAN; Protocol Stop: 06/29/21 00:00 Last Admin: 05/31/21 05:16 Dose: Not Given Documented by: Insulin Glargine (Insulin Glargine Solostar 100 Units/Ml 3 Ml Pen) 0 units SC HS JUAN; Protocol Stop: 06/29/21 20:59 Last Admin: 05/30/21 20:08 Dose: Not Given Documented by: Metoprolol Tartrate (Metoprolol Tartrate 25 Mg Tab) 25 mg PO TID [facility] Stop: 06/29/21 13:59 Last Admin: 05/31/21 08:44 Dose: 25 mg Documented by: Midazolam HCl (Midazolam Hcl 1 Mg/Ml 2ml Vial) 2 mg IV Q2H PRN PRN Reason: seizure Stop: 06/28/21 16:12 Miscellaneous (Icu Protocol For Hyperglycemia) 1 ea N/A PRN PRN; Protocol PRN Reason: Hyperglycemia Protocol Stop: 05/31/21 14:42 Miscellaneous Information (Pharmacy Glycemic Mgmt Consult) 1 ea N/A UD PRN PRN Reason: Consult Stop: 06/28/21 21:24 (1) AMS (altered mental status) Altered mental status type: unspecified Qualified Code(s): R41.82 - Altered mental status, unspecified
[2021-05-31] MEDS: LANSOPRAZOLE 15 MG SOLTAB NG SCH (10:47)
[2021-05-31] MEDS: levETIRAcetam 1,000 MG in 0.9 % SODIUM CHLORIDE 100 ML IV SCH ×2 (10:49→23:21)
[2021-05-31] MEDS ORDERED: VANCOMYCIN HCL 1,500 MG in SODIUM CHLORIDE 0.9% 500 ML IV SCH (11:00)
--- NOTE | 2021-05-31 11:46 | Pharmacy Report ---
Pharmacy Glycemic Short Note 2 - Date of Service May 31, 2021 - Glycemic Short BSG Results (Last 24 hours): 05/30/21 05/30/21 05/31/21 18:13 20:02 01:16 Glucose POC Glucose 111 H 93 115 H 05/31/21 05/31/21 05/31/21 03:35 05:04 11:41 Glucose 114 H POC Glucose 129 H 118 H OUTPATIENT ANTIDIABETIC REGIMEN: * n/a ASSESSMENT: 05/31 * BSGs well controlled over last 24 hrs, [phone]. Received 0 units of insulin yesterday. * Remains on heparin drip and NPO. Continue Novolog SSI only - no changes. 05/30 * 70 year old admitted with AMS/secondary to possible stroke. Currently NPO * Received total of 7 units of insulin yesterday. Fasting BSG 130 mg/dL - will continue with only SSI for today, may add basal scale on for HS if BSGs trending upward PLAN FOR INPATIENT GLYCEMIC CONTROL: * Hold outpatient oral diabetes medications * Basal insulin * Bolus insulin * NovoLog per scale ACHS or Q6hrs while NPO * Goal Range: Low 140 mg/dL - High 180 mg/dL * Correction Factor: 60 mg/dL/unit * Nutritional / Prandial insulin per carb ratio of 1 unit per 20 grams CHO consumed
--- NOTE | 2021-05-31 13:16 | Hospitalist Progress Note ---
Date of Service May 31, 2021 Assessment & Plan (1) Metabolic encephalopathy: (2) CAD (coronary artery disease): (3) Elevated troponin I level: (4) Elevated LFTs: (5) Carotid stenosis: (6) H/O neck surgery: (7) Chronic pain: (8) DVT prophylaxis: Plan: Acute metabolic encephalopathy likely due to acute embolic stroke?cardiogenic vs from carotid artery stenosis - MRI brain with bilateral infarcts suggesting shower emboli. - CTA head/neck shows bilateral atherosclerotic plaque with 80-90% stenosis. - Echo with no vegetations but apical hypokinesia. - EEG negative for seizure. UDS negative. - Seen by neuro, cardio, medication coordinator, GI, surgery - now on heparin drip started 05/30 - no improvement in his encephalopathy. Low suspicion for meningitis/encephalitis at this point and plan for LP aborted. - Aspiration precautons. - Palliative consulted Leucocytosis with lactic acidosis- ?from infection (?source) vs reactive from stroke and seizure but does not seem to improving despite being on empiric antibiotics. Fever now subsided. Blood clx negative. Continue empiric antibiotics for now. MRSA screen negative and meningitis less likely. Can likely discontinue vanc/ampicillin and continue zosyn only. Elevated trop with apical hypokinesia-Echo reviewed. Cardio following- ACS vs stress mediated- trop peaked. Continue tele. On heparin drip and beta celia per cardio Seizure- witnessed by EMS- on keppra per neuro for at least 6-12 months. EEG was negative for any epileptogenic activity. HTN- on lopressor Elevated LFTs- Improving. CT and MRCP reviewed. Seen by GI and surgery- recommendations noted. No additional work up or intervention recommended at this point. COPD- not in exacerbation. Nebs prn Recent neck surgery S/p ACDF C4-C5 by Dr. Allen on 05/04 DVT prophylaxis- heparin drip Dispo- Transfer to PCU/tele. He has remained stable and does not currently need ICU level of care. Prognosis guarded and palliative has been consulted He is DNR/DNI Admission and Anticipated Discharge Date Admission Date: May 29, 2021 Subjective Seen and examined at bedside. No change in his clinical status. Status quo. Remains responsive only to noxious stimuli. No more fever. Vitals stable. Physical Exam Physical Exam: Vitals stable General: Stuporous, unresponsive. Edwin feed tube in place HEENT: Bilateral horizontal nsytagmus, pupils reactive. Chest: Fair breath sounds anteriorly CVS: Regular, normal heart sounds, no murmur Abdomen: Soft, not distended, normal bowel sounds Neuro: Stuporous. Extremities: No edema or rash. Calix with laura urine. Results & Data Results & Data ([facility]) Vital Signs (Past 12 Hours) Vital Signs Temp Pulse Resp BP Pulse Ox 05/31/21 09:00 71 24 152/100 H 97 05/31/21 08:00 36.9 C 65 20 141/91 H 97 05/31/21 07:00 77 27 H 153/123 H 97 05/31/21 06:00 63 17 143/92 H 97 05/31/21 05:00 69 29 H 150/95 H 96 05/31/21 04:00 36.9 C 71 29 H 150/100 H 96 05/31/21 03:00 68 25 H 153/95 H 91 05/31/21 02:00 70 27 H 152/99 H 95 Laboratory Results Short CBC 05/31/21 Range/Units 03:35 WBC 26.83 H (4.8-10.8) K/uL Hgb 12.4 L (14.0-18.0) g/dL Hct 36.7 L (42-52) % Plt Count 454 H (130-400) K/uL BMP 05/31/21 03:35 Sodium 134 L Potassium 3.8 Chloride 104 Carbon Dioxide 19 L BUN 13 Creatinine 0.84 Glucose 114 H Calcium 7.3 L Liver Function 05/31/21 Range/Units 03:35 Total Bilirubin 0.8 (0.2-1.0) mg/dl Direct Bilirubin 0.2 (0-0.2) mg/dl AST 43 H (13-39) U/L ALT 71 H (7-52) U/L Alkaline Phosphatase 159 H (34-104) U/L Albumin 2.7 L (3.4-5.0) gm/dl Medications Administered Current Inpatient Medications Sodium Chloride (Nss 1000ml) 1,000 mls @ 125 mls/hr IV .Q8H JUAN Stop: 06/28/21 15:14 Last Admin: 05/31/21 13:03 Dose: 125 mls/hr Documented by: Levetiracetam 1,000 mg/ Sodium (Chloride) 110 mls @ 440 mls/hr IV Q12H JUAN Stop: 06/28/21 22:59 Last Admin: 05/31/21 10:49 Dose: 440 mls/hr Documented by: Acetaminophen (Ofirmev) 60 mls @ 260 mls/hr IV Q8H PRN; Protocol PRN Reason: Temp >100.4 Stop: 06/02/21 02:26 Last Infusion: 05/30/21 02:55 Dose: Infused Documented by: Heparin Sodium/Dextrose (Heparin Sodium/Dextrose) 25,000 units in 500 mls @ 15 mls/hr IV .Q24H JUAN; Protocol Stop: 06/29/21 11:04 Last Titration: 05/31/21 07:00 Dose: 750 units/hr, 15 mls/hr Documented by: Insulin Aspart (Insulin Aspart Per Unit) 0 units SC Q6 JUAN; Protocol Stop: 06/29/21 00:00 Last Admin: 05/31/21 13:04 Dose: Not Given Documented by: Lansoprazole (Lansoprazole 15 Mg Soltab) 15 mg NG DAILY JUAN Stop: 06/30/21 09:59 Last Admin: 05/31/21 10:47 Dose: 15 mg Documented by: Metoprolol Tartrate (Metoprolol Tartrate 25 Mg Tab) 25 mg PO TID JUAN Stop: 06/29/21 13:59 Last Admin: 05/31/21 08:44 Dose: 25 mg Documented by: Midazolam HCl (Midazolam Hcl 1 Mg/Ml 2ml Vial) 2 mg IV Q2H PRN PRN Reason: seizure Stop: 06/28/21 16:12 Miscellaneous (Icu Protocol For Hyperglycemia) 1 ea N/A PRN PRN; Protocol PRN Reason: Hyperglycemia Protocol Stop: 05/31/21 14:42 Miscellaneous Information (Pharmacy Glycemic Mgmt Consult) 1 ea N/A UD PRN PRN Reason: Consult Stop: 06/28/21 21:24
--- NOTE | 2021-05-31 14:12 | Electrocardiogram Report ---
Test Reason : Blood Pressure : / mmHG Vent. Rate : 069 BPM Atrial Rate : 069 BPM P-R Int : 114 ms QRS Dur : 082 ms QT Int : 652 ms P-R-T Axes : 059 029 207 degrees QTc Int : 698 ms Sinus rhythm with Premature supraventricular complexes Low voltage QRS Poor R wave progression, consider anterior OK vs. lead placement vs. LVH Prolonged QT Abnormal ECG When compared with ECG of 30-MAY-2021 04:31, Premature supraventricular complexes are now Present QT has lengthened Confirmed by Shailesh Monet ([id number]) on 05/31/2021 2:12:01 PM Referred By: REFERRED SELF Confirmed By:Ino Monet
--- NOTE | 2021-05-31 14:52 | Palliative Care Consultation ---
Date of Consultation May 31, 2021 Assessment & Plan (1) Palliative care encounter: Mr. Ramirez is a 73 year old male who presented to the hospital with acute respiratory failure. He has a PMH including: CHF, Aortic Stenosis, COPD on 4LNC at baseline, CAD with stents, DM2, and a single lead ICD. He has an EF of 25%. He has been deemed not a candidate for a TAVR. He was started on IV abx. He had a decline requiring Bipap. At that time, there was discussion with his , Candida regarding no escalation of care, including no ICU level of care in the event of further decline. Pt is an established DNR/DNI. Palliative Medicine was consulted to discuss overall goals of care. I saw the patient in the ICU. He was obtunded and did not respond to verbal stimuli. He did withdraw to nail bed pressure, but overall no meaningful response. He did have a corneal reflex; however, no focused gaze. 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 He has been placed on a Heparin drip to prevent further strokes; however, it appears that he is unlikely to have meaningful recovery. Would support a full comfort measures transition. Patient apparently does have an advanced directive that indicates that he would not want to have overly heroi c measures taken regarding his care. Will confirm when I speak with family. At best, patient would need to be transferred to a SNF setting with 24/7 support. I reached out to his daughter Rosa at [phone] and left her a voice message. Additionally, I called his son, who actually does have POA , Destin at [phone] and left him a voicemail. It has been discussed that others involved in his care team have had conversations with the patients son who is reluctant to make big medical decisions regardless of his POA status. Palliative Medicine will follow with attempts to hold a goals of care conversation. (2) AMS (altered mental status): Altered mental status type: unspecified Qualified Code(s): R41.82 - Altered mental status, unspecified (3) Stroke: History of Present Illness Reason for Consultation: goals of care Requesting Physician: Dr. Ayala Attending Physician: Dilan Garcia MD History of Present Illness Mr. Tolbert is a 70 year old male who was brought to the [facility] ED from home as he was found to be unresponsive at home. He recently had a cervical neck fusion repair done Allergies Allergy/AdvReac Type Severity Reaction Status Date / Time No Known Allergies Allergy Verified 05/29/21 14:40 Home Medications Medication Instructions Recorded Confirmed Type acetaminophen 325 mg tablet 650 mg PO TID 10/28/20 05/29/21 History (Tylenol) atorvastatin 40 mg tablet (Lipitor) 40 mg PO QAM 10/28/20 05/29/21 History gabapentin 800 mg tablet 800 mg PO TID 10/28/20 05/29/21 History methadone 10 mg tablet 10 mg PO BID PRN 10/28/20 05/29/21 History nortriptyline 10 mg capsule 10 mg PO HS 10/28/20 05/29/21 History (Pamelor) aspirin 81 mg tablet,delayed 81 mg PO DAILY 05/04/21 05/29/21 History release cevimeline 30 mg capsule 30 mg PO TID 05/29/21 05/29/21 History citalopram 20 mg tablet 20 mg PO DAILY 05/29/21 05/29/21 History docusate sodium 100 mg capsule 100 mg PO BID 05/29/21 05/29/21 History esomeprazole magnesium 40 mg 40 mg PO DAILY 05/29/21 05/29/21 History capsule,delayed release famotidine 20 mg tablet 20 mg PO DAILY PRN 05/29/21 05/29/21 History levothyroxine 112 mcg tablet 112 mcg PO DAILYBB 05/29/21 05/29/21 History Patient History Medical History (Updated 05/31/21 @ 16:22 by RHIANNON Sainz) Anemia CAD (coronary artery disease) 2010- [facility] showed patent LAD and LCX stents, mild RCA disease per cardio records [place]- approx 15 years ago, total of 4 stents over time- most recent stent [address] 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 Deckre in [place] Palliative care encounter Stroke Surgical History (Updated 05/29/21 @ 16:38 by RHIANNON Flanagan) H/O hand surgery "L hand traumatic injury repair around 1995" H/O neck surgery Hx of cardiac cath heart attack 15 years, total of [address] Chaney in [place] Hx of colonoscopy Family History Mother Hypothyroidism Father Heart disease Social History Smoking Status: Former smoker Second Hand Exposure: No; Hx Alcohol Use: Yes Alcohol type: hard liquor Hx Substance Use: No Preferred Language: Irish Communication Ability: Impaired Lead Rider Required: No Beliefs That Will Affect Care: None Current Living Situation: Alone Current Living Situation Comment: Unsafe situation Other Information That Helps Us Care for You: No Feels Safe at Home: No Is there a partner from a previous relationship who is making you feel unsafe now?: No Any Concerns about Your Family Situation: No Would You Like to Speak to Someone About Your Situation: No Assistive Devices: Walker Review of Systems Review of Systems: [place] System Assessment Scale: Pain by obs: 1/3 SOB by obs: 13 Palliative Performance Scale: 30% Physical Exam Constitutional: + ill appearing and + frail appearing ENMT: Mouth: + dry oral mucous membranes Respiratory: normal respiratory effort Auscultation: + diminished lung sounds Cardiovascular: Rate/Rhythm: regular rate and regular rhythm Extremities: normal capillary refill; no pedal edema Gastrointestinal (Abdomen): Inspection/Auscultation: abdomen normal to inspection Skin: + pallor Neurologic: + obtunded Results & Data ([facility]) Vital Signs (Past 12 Hours) Vital Signs Temp Pulse Resp BP Pulse Ox 05/31/21 14:00 64 23 150/108 H 98 05/31/21 13:00 58 L 20 142/94 H 99 05/31/21 12:00 36.9 C 63 23 139/95 100 05/31/21 11:00 60 25 H 148/94 H 98 05/31/21 10:00 64 22 150/99 H 97 05/31/21 09:00 71 24 152/100 H 97 05/31/21 08:00 36.9 C 65 20 141/91 H 97 05/31/21 07:00 77 27 H 153/123 H 97 05/31/21 06:00 63 17 143/92 H 97 05/31/21 05:00 69 29 H 150/95 H 96 05/31/21 04:00 36.9 C 71 29 H 150/100 H 96 05/31/21 03:00 68 25 H 153/95 H 91 PG Care Time/CCT Total # of Minutes Spent Total Time Spent with Patient: Total time spent is greater than 50% in coordination of care (as documented) at patient's floor/unit and/or counseling patient: 70 minutes Coding Level of Care Code 80801 Initial Inpt Care Lvl 3 Diagnoses Palliative care encounter Z51.5 AMS (altered mental status) R41.82 Altered mental status type: unspecified Stroke I63.9 Time Spent (min) 70
--- NOTE | 2021-05-31 15:40 | Communication Note ---
Date of Service: May 31, 2021 I saw Destin again at the bedside. He remains unresponsive. I cannot force his eyes open he has increased tone in the left side and in both lower extremities. The right side seems a little less hypertonic but I really do not get much in way volitional movement and I do get some withdrawal on the left with noxious stimulation of the toes and minor withdrawal of both arms with deep nailbed pressure. I cannot tell if there is eye deviation to the right like it was yesterday as he is rolled over on his left side This man has had multiple embolic infarctions likely secondary to an acute myocardial infarction with hypokinesis of the left ventricular wall and probable laminated thrombus formation which is now cleared after the embolic shower. I cannot state that he did not have paroxysmal atrial fibrillation nor can I state he does not have endocarditis but the valves appear to be reasonably good on echo. Cardiology is going to have to be the ultimate diagnostician in the setting and he is on heparin drip for further embolic stroke prevention at this point Neurologically he remains devastated and has been this way now for 48 hours. He is not ventilatory dependent but has extensive right hemispheric and left hemispheric disease secondary to embolic infarctions and I think his prognosis for any type of quality of life remains poor. There may well be in addition evidence for cervical myelopathy although it is very hard to assess how much of his lower extremity weakness is secondary to this versus the effects of the embolic infarctions Right now the issue is academic all we can do is offer support and heparin for stroke prevention. I agree totally with a palliative medicine consultation as am not sure this man's wishes would be to exist in this condition. I will make another visit over the next day or 2 just to see if he has any signs of improvement but at this point again I think his prognosis is poor and I would totally support a palliative care approach if his family would choose this route Flako Kohler MD
[2021-05-31] MEDS: HEPARIN SODIUM/DEXTROSE 25,000 UNITS/500 ML BAG IV SCH (19:41)
[2021-06-01] MEDS: INSULIN ASPART PER UNIT SC SCH ×2 (00:10→06:12)
[2021-06-01 05:52] LABS: Basophils # (auto) 0.01 K/uL (0-0.2); Eosinophils # (auto) 0.01 K/uL (0-0.5); Hematocrit (blood only) 34.7 % (42-52); Hemoglobin 11.7 g/dL (14.0-18.0); Immature Granulocytes # (auto) 0.16 K/uL (0.00-0.02); Immature Granulocytes % (auto) 0.8 %; Lymphocytes # (auto) 0.86 K/uL (1.2-3.4); Mean Corpuscular Hemoglobin 33.8 pg (25-34); Mean Corpuscular Hgb Conc 33.7 g/dL (32-36); Mean Corpuscular Volume 100.3 fL (80-100); Mean Platelet Volume 11.2 fL (7.4-10.4); Monocytes # (auto) 1.31 K/uL (0.11-0.59); Monocytes % (auto) 6.1 %; Neutrophils # (auto) 18.98 K/uL (1.4-6.5); Neutrophils % (auto) 89.1 %; Platelet Count 438 K/uL (130-400); RDW Coefficient of Variation 15.8 % (11.5-14.5); RDW Standard Deviation 57.2 fL (36.4-46.3); Red Blood Count 3.46 M/uL (4.7-6.1); White Blood Count 21.33 K/uL (4.8-10.8)
[2021-06-01 06:03] LABS: Partial Thromboplastin Ratio 1.6; Partial Thromboplastin Time 44.3 Seconds (21.0-31.0)
[2021-06-01] MEDS: SODIUM CHLORIDE 0.9% 1000ML 1,000 ML IV SCH ×2 (06:06→11:38)
[2021-06-01 06:12] LABS: Albumin Level 2.4 gm/dl (3.4-5.0); Bilirubin Direct 0.2 mg/dl (0-0.2); Bilirubin,Total 0.6 mg/dl (0.2-1.0); Est GFR (Non-African American) 94.9 ml/min; Magnesium 1.6 mg/dl (1.7-2.4); Phosphorus 2.7 mg/dl (2.5-4.9); Potassium 3.1 mmol/L (3.5-5.1); Total Protein 4.7 gm/dl (6.0-8.3)
--- NOTE | 2021-06-01 09:02 | Palliative Care Progress Note ---
Date of Service June 01, 2021 Assessment & Plan (1) Palliative care encounter: Plan: I saw the patient in the ICU, telemetry status. He was obtunded and did not respond to verbal stimuli. Per nursing, he does moan with turns, but no meaningful interaction noted.He did have a corneal reflex; however, no focused gaze. 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 He has been placed on a Heparin drip to prevent further strokes; however, it appears that he is unlikely to have meaningful recovery. I was able to hold a conference call with the patients daughter, Rosa and the patients sister, Bell. Family has spoken with the patients son, Juan Ramon, who does hold official POA, but has stated he does not want to be involved with decision making. I have not been able to reach Juan Ramon. At this time, both Rosa and Bell are willing to make medical decisions on his behalf. Rosa and Bell recognize that his overall prognosis is poor, at best. They recognize that he is unlikely to have a meaningful recovery. They have stated that on previous occasion they have discussed with the patient in the event of a terminal situation that he would not want overly heroic measures taken to save or prolong his life. They stated that he would not want a feeding tube. Confirmed DNR/DNI status. Keep mucus membranes moist with swabs. We discussed discontinuation of his core safe and focus on a full comfort duran sition to his care; with discontinuation of further blood draws, vital signs, and non-essential medications. I will ensure that comfort medications are ordered; should he not decline rapidly over the next day or two, discussed the possibility of home with hospice and 24/7 care vs SNF with hospice. Both were in agreement that home is not an option and would like to discuss with case man mercedes regarding options for SNF care and hospice locally. Donnie infusion will remain intact for seizure prophylaxis for now. Given that his nutrition will not be initiated; it is likely that he will have a life expectancy of days to a week or two. All of the above discussed with the hospitalist and case management. POLST form completed as outlined below. (2) AMS (altered mental status): (3) Stroke: (4) POLST (Physician Orders for Life-Sustaining Treatment): Plan: POLST completed with the patients sister and niece indicating DNR/DNI, DRY CLEANER, no artificial nutrition/hydration, no abx. Copy and original placed on chart. Admission and Anticipated Discharge Date Admission Date: May 29, 2021 Subjective Patient remains unresponsive and obtunded. Patient continues to breathe on his own and does not meet brain criteria. Remains on a Heparin and Keppra infusions. See A/P for further details. Review of Systems Review of Systems: [facility] System Assessment Scale: Pain by obs: 1/3 SOB by obs: 1/3 Palliative Performance Scale: 10% Physical Exam Constitutional: + ill appearing and + frail appearing ENMT: Mouth: + dry oral mucous membranes Respiratory: normal respiratory effort Auscultation: + diminished lung sounds Cardiovascular: Rate/Rhythm: regular rate and regular rhythm Extremities: normal capillary refill; no pedal edema Gastrointestinal (Abdomen): Inspection/Auscultation: abdomen normal to inspection Skin: + pallor Neurologic: + obtunded Results & Data ([facility]) Vital Signs (Past 12 Hours) Vital Signs Temp Pulse Pulse Resp BP BP Pulse Ox 06/01/21 08:00 61 06/01/21 04:00 36.5 C 62 19 149/90 H 96 05/31/21 22:59 36.7 C 56 L 18 140/95 96 PG Care Time/CCT Total # of Minutes Spent Total Time Spent with Patient: Total time spent is greater than 50% in coordination of care (as documented) at patient's floor/unit and/or counseling patient: 45 minutes Coding Level of Care Code 34282 Subseq Hosp Care Lvl 3 Diagnoses Palliative care encounter Z51.5 AMS (altered mental status) R41.82 Altered mental status type: unspecified Stroke I63.9 POLST (Physician Orders for Life-Sustaining Treatment) Z78.9 Time Spent (min) 45 (1) AMS (altered mental status) Altered mental status type: unspecified Qualified Code(s): R41.82 - Altered mental status, unspecified
[2021-06-01] MEDS: LANSOPRAZOLE 15 MG SOLTAB NG SCH (09:30)
[2021-06-01] MEDS: METOPROLOL TARTRATE 25 MG TAB PO SCH (09:30)
[2021-06-01] MEDS: levETIRAcetam 1,000 MG in 0.9 % SODIUM CHLORIDE 100 ML IV SCH ×2 (10:43→23:55)
[2021-06-01] MEDS: HEPARIN SODIUM/DEXTROSE 25,000 UNITS/500 ML BAG IV SCH (11:38)
--- NOTE | 2021-06-01 12:40 | Communication Note ---
Date of Service: June 01, 2021 I reviewed the palliative medicine consultation that was performed on [place] today and agree completely with the approach of supportive care only and minimi zing unnecessary medications. The patient apparently is against the feeding tube so delivery of anticonvulsants may prove to be problematical should he survive longer than the several weeks that are currently being predicted. That having been said I would simply continue the Keppra 500 mg intravenously twice a day as he is at risk for recurrent strokes in light of the extensive emboli that involve the cortical surfaces and the fact that a seizure was apparently observed but after several weeks time it may be safe to discontinue Keppra as the risk of seizures in that setting would be diminishing. At this point neurology is going to sign off the case but will be available for any changes in his status or any questions regarding his anticonvulsant therapy Flako Kohler MD
--- NOTE | 2021-06-01 16:00 | Hospitalist Progress Note ---
Date of Service June 01, 2021 Assessment & Plan (1) Metabolic encephalopathy: (2) CAD (coronary artery disease): (3) Elevated troponin I level: (4) Elevated LFTs: (5) Carotid stenosis: (6) H/O neck surgery: (7) Chronic pain: (8) DVT prophylaxis: Plan: Discussed with palliative team who had discussed with family regarding goals of care and opted for comfort measure status given his extensive embolic stroke and less chance of meaningful recovery. Comfort measures placed by palliative- all meds will be discontinued except for Keppra which will be continued to prevent recurrent seizure given his extensive embolic stroke. Transfer to [facility]. No more labs, imaging, BROTHEL KEEPER/code. No escalation of care. If he remains stable, plan will be to discharge him to rehab on comfort measures. Admission and Anticipated Discharge Date Admission Date: May 29, 2021 Subjective Remains stuporous. No change in his clinical status. No fever. Breathing comfortably. Physical Exam Physical Exam: Vitals stable General: Stuporous, unresponsive. Carpenter feed tube in place HEENT: Bilateral horizontal nsytagmus, pupils reactive. Chest: Fair breath sounds anteriorly CVS: Regular, normal heart sounds, no murmur Abdomen: Soft, not distended, normal bowel sounds Neuro: Stuporous. Extremities: No edema or rash. Calix with laura urine. Results & Data Results & Data ([facility]) Vital Signs (Past 12 Hours) Vital Signs Temp Pulse Resp BP Pulse Ox 06/01/21 09:00 70 24 96 06/01/21 08:01 57 L 15 135/90 94 06/01/21 08:00 37.0 C 61 06/01/21 04:00 36.5 C 62 19 149/90 H 96 Laboratory Results Short CBC 06/01/21 Range/Units 04:57 WBC 21.33 H (4.8-10.8) K/uL Hgb 11.7 L (14.0-18.0) g/dL Hct 34.7 L (42-52) % Plt Count 438 H (130-400) K/uL BMP 06/01/21 04:57 Sodium 134 L Potassium 3.1 L Chloride 108 H Carbon Dioxide 17 L BUN 14 Creatinine 0.70 Glucose 96 Calcium 7.0 L Liver Function 06/01/21 Range/Units 04:57 Total Bilirubin 0.6 (0.2-1.0) mg/dl Direct Bilirubin 0.2 (0-0.2) mg/dl AST 24 (13-39) U/L ALT 47 (7-52) U/L Alkaline Phosphatase 130 H (34-104) U/L Albumin 2.4 L (3.4-5.0) gm/dl Medications Administered Current Inpatient Medications Atropine Sulfate (Atropine Sulfate 1% Op Soln 5 Ml Btl) 4 drops SL Q4H PRN PRN Reason: secretions Stop: 07/01/21 13:59 Levetiracetam 1,000 mg/ Sodium (Chloride) 110 mls @ 440 mls/hr IV Q12H JUAN Stop: 06/28/21 22:59 Last Infusion: 06/01/21 11:00 Dose: Infused Documented by: Morphine Sulfate (Morphine Sulfate 5 Mg/0.25 Ml Udp) 5 mg PO Q4H PRN PRN Reason: Pain/air hunger Stop: 06/15/21 13:48
[2021-06-01] MEDS: ATROPINE SULFATE 1% OP SOLN 5 ML BTL SL PRN (18:22)
[2021-06-02] MEDS: MoRPHine SULFATE 5 MG/0.25 ML UDP PO PRN ×3 (11:48→20:29)
[2021-06-02] MEDS: levETIRAcetam 1,000 MG in 0.9 % SODIUM CHLORIDE 100 ML IV SCH ×2 (11:48→22:09)
[2021-06-02] MEDS: ATROPINE SULFATE 1% OP SOLN 5 ML BTL SL PRN (19:49)
--- NOTE | 2021-06-02 23:42 | Hospitalist Progress Note ---
Date of Service June 02, 2021 Assessment & Plan (1) Metabolic encephalopathy: (2) CAD (coronary artery disease): (3) Elevated troponin I level: (4) Elevated LFTs: (5) Carotid stenosis: (6) H/O neck surgery: (7) Chronic pain: (8) DVT prophylaxis: Plan: Multiple embolic stroke MRI brain showed Diffuse ischemic infarcts present bilaterally, right greater than left. Neuro on board -prognosis for any type of quality of life remains poor Palliative team on board - discussed with family regarding goals of care and opted for comfort measure status given his extensive embolic stroke and less chance of meaningful recovery. Comfort measures placed by palliative- all meds will be discontinued except for Keppra which will be continued to prevent recurrent seizure given his extensive embolic stroke. Will need placement for hospice Admission and Anticipated Discharge Date Admission Date: May 29, 2021 Subjective Pt was seen and examined for hospice Lying in bed and seems comfortable He was able to answer question appropriately Denies any chest pain, palpitation and SOB Review of Systems Review of Systems: All systems reviewed & are unremarkable except as noted in Subjective Physical Exam Physical Exam: General: No acute distress, speak a few words in soft voice, HEENT:eyes open, pupils reactive Neck: Neck collar Chest: Fair breath sounds anteriorly CVS: Regular, normal heart sounds, no murmur Abdomen: Soft, not distended, normal bowel sounds Neuro: able to follow minimal command and comprehend, eyes open, weakness in upper extremity Extremities: No edema or rash.
[2021-06-02] MEDS ORDERED: PROMETHAZINE HCL 6.25 MG in SODIUM CHLORIDE 0.9% 50 ML IV PRN (23:46)
[2021-06-02] MEDS ORDERED: MoRPHine SULFATE 4 MG/ML 1 ML CARP\\VIAL IV PRN (23:46)
[2021-06-03] MEDS: MoRPHine SULFATE 4 MG/ML 1 ML CARP\\VIAL IV PRN ×5 (01:05→20:50)
[2021-06-03] MEDS: levETIRAcetam 1,000 MG in 0.9 % SODIUM CHLORIDE 100 ML IV SCH ×2 (10:55→23:10)
--- NOTE | 2021-06-03 23:56 | Hospitalist Progress Note ---
Date of Service June 03, 2021 Assessment & Plan (1) Metabolic encephalopathy: (2) CAD (coronary artery disease): (3) Elevated troponin I level: (4) Elevated LFTs: (5) Carotid stenosis: (6) H/O neck surgery: (7) Chronic pain: (8) DVT prophylaxis: Plan: Multiple embolic stroke MRI brain showedDiffuse ischemic infarcts present bilaterally, right greater than left. Neuro on board -prognosis for any type of quality of life remains poor Palliative team on board - discussed with family regarding goals of care and opted for comfort measure status given his extensive embolic stroke and less chance of meaningful recovery. Comfort measures placed by palliative- all meds will be discontinued except for Keppra which will be continued to prevent recurrent seizure given his extensive embolic stroke. Speech consulted- Aspirated during swallow eval with ice chips, water, ice cream. Speech recommended comfort feeding of most purees and thin liquid. called sister to update about the swallow eval, unfortunalely no one answered Will need placement for hospice Might consider to change IV keprra to [place] if pt unable to swallow to help him with placement since no hospice facility will accept him with the IV Keppra Admission and Anticipated Discharge Date Admission Date: May 29, 2021 Subjective Pt was seen and examined for follow up on comfort care only Lying in bed and seems comfortable with sister at bedside spoke with sister in detail and answered all her questions Pt again stated his wished that he does not want any tube feeding He would like to try to see if he is able to swallow We will talk to speech for swallow eval Denies any chest pain, palpitation and SOB Review of Systems Review of Systems: All systems reviewed & are unremarkable except as noted in Subjective Physical Exam Physical Exam: General: No acute distress, speak a few words in soft voice, HEENT:eyes open, pupils reactive Neck: Neck collar Chest: Fair breath sounds anteriorly CVS: Regular, normal heart sounds, no murmur Abdomen: Soft, not distended, normal bowel sounds Neuro: able to follow minimal command and comprehend, eyes open, weakness in upper extremity Extremities: No edema or rash. Results & Data Results & Data ([facility]) Vital Signs (Past 12 Hours) Vital Signs Resp 06/03/21 18:04 14
[2021-06-04] MEDS: MoRPHine SULFATE 4 MG/ML 1 ML CARP\\VIAL IV PRN ×6 (03:06→22:58)
[2021-06-04] MEDS: levETIRAcetam 1,000 MG in 0.9 % SODIUM CHLORIDE 100 ML IV SCH ×2 (11:25→22:59)
--- NOTE | 2021-06-04 11:46 | Palliative Care Progress Note ---
Date of Service June 04, 2021 Assessment & Plan (1) Palliative care encounter: Plan: Patient remains on GRADING SUPERVISOR. Discussed discontinuation of Keppra IV and transitioning to Ativan SL for seizure prophylaxis. Pt sister is understanding that her brother likely has a week or so left of his life. Patient has utilized four doses of Morphine over the past 24 hours. Confirmed that he would not want any life prolonging measures taken, including tube feeding, etc. Case management is working on placement. Palliative will continue to follow while inpatient. (2) AMS (altered mental status): (3) Stroke: (4) POLST (Physician Orders for Life-Sustaining Treatment): Admission and Anticipated Discharge Date Admission Date: May 29, 2021 Subjective pt remains on GRADING SUPERVISOR. Pt continues on Keppra IV, will transition to SL Ativan prophylaxis comfort to prevent seizures Patient awaiting placement for comfort measures/hospice. See A/P for further details Review of Systems Review of Systems: [place] System Assessment Scale: Pain by obs: 1/3 SOB by obs: 1/3 Palliative Performance Scale: 10% Physical Exam Constitutional: + ill appearing and + frail appearing ENMT: Mouth: + dry oral mucous membranes Respiratory: normal respiratory effort Auscultation: + diminished lung sounds Cardiovascular: Rate/Rhythm: regular rate and regular rhythm Extremities: normal capillary refill; no pedal edema Gastrointestinal (Abdomen): Inspection/Auscultation: abdomen normal to inspection Skin: + pallor Neurologic: + obtunded PG Care Time/CCT Total # of Minutes Spent Total Time Spent with Patient: Total time spent is greater than 50% in coordination of care (as documented) at patient's floor/unit and/or counseling patient: 35 minutes Coding Level of Care Code 44203 Subseq Hosp Care Lvl 3 Diagnoses Palliative care encounter Z51.5 AMS (altered mental status) R41.82 Altered mental status type: unspecified Stroke I63.9 POLST (Physician Orders for Life-Sustaining Treatment) Z78.9 Time Spent (min) 35 (1) AMS (altered mental status) Altered mental status type: unspecified Qualified Code(s): R41.82 - Altered mental status, unspecified
--- NOTE | 2021-06-04 23:51 | Hospitalist Progress Note ---
Date of Service June 04, 2021 Assessment & Plan (1) Metabolic encephalopathy: (2) CAD (coronary artery disease): (3) Elevated troponin I level: (4) Elevated LFTs: (5) Carotid stenosis: (6) H/O neck surgery: (7) Chronic pain: (8) DVT prophylaxis: Plan: Multiple embolic stroke MRI brain showedDiffuse ischemic infarcts present bilaterally, right greater than left. Neuro on board -prognosis for any type of quality of life remains poor Palliative team on board - discussed with family regarding goals of care and opted for comfort measure status given his extensive embolic stroke and less chance of meaningful recovery. Comfort measures placed by palliative- all meds will be discontinued except for Keppra which will be continued to prevent recurrent seizure given his extensive embolic stroke. Speech consulted- Aspirated during swallow eval with ice chips, water, ice cream. Speech recommended comfort feeding of most purees and thin liquid. called sister to update about the swallow eval, unfortunalely no one answered Will need placement for hospice Might consider to change IV keprra to [place] if pt unable to swallow to help him with placement since no hospice facility will accept him with the IV Keppra Will continue the IV keppra inpatient, plan to transition to ativan on discharge Admission and Anticipated Discharge Date Admission Date: May 29, 2021 Subjective Pt was seen and examined for follow up on comfort care only Lying in bed and seems comfortable with sister present spoke with sister in detail and answered all her questions Sister does not want to start on comfort feeding due to the high aspiration risk Denies any chest pain, palpitation and SOB Review of Systems Review of Systems: All systems reviewed & are unremarkable except as noted in Subjective Physical Exam Physical Exam: General: No acute distress, speak a few words in soft voice, HEENT:eyes open, pupils reactive Neck: Neck collar Chest: Fair breath sounds anteriorly CVS: Regular, normal heart sounds, no murmur Abdomen: Soft, not distended, normal bowel sounds Neuro: able to follow minimal command and comprehend, eyes open, weakness in upper extremity Extremities: No edema or rash.
[2021-06-05] MEDS: MoRPHine SULFATE 4 MG/ML 1 ML CARP\\VIAL IV PRN ×2 (03:37→08:30)
[2021-06-05] MEDS: MoRPHine SULFATE 5 MG/0.25 ML UDP PO PRN ×2 (10:36→15:19)
[2021-06-05] MEDS: levETIRAcetam 1,000 MG in 0.9 % SODIUM CHLORIDE 100 ML IV SCH ×2 (11:05→23:26)
--- NOTE | 2021-06-05 17:27 | Hospitalist Progress Note ---
Date of Service June 05, 2021 Assessment & Plan (1) Metabolic encephalopathy: (2) CAD (coronary artery disease): (3) Elevated troponin I level: (4) Elevated LFTs: (5) Carotid stenosis: (6) H/O neck surgery: (7) Chronic pain: (8) DVT prophylaxis: Plan: Multiple embolic stroke MRI brain showedDiffuse ischemic infarcts present bilaterally, right greater than left. Neuro on board -prognosis for any type of quality of life remains poor Palliative team on board - discussed with family regarding goals of care and opted for comfort measure status given his extensive embolic stroke and less chance of meaningful recovery. Comfort measures placed by palliative- all meds will be discontinued except for Keppra which will be continued to prevent recurrent seizure given his extensive embolic stroke. Speech consulted- Aspirated during swallow eval with ice chips, water, ice cream. Speech recommended comfort feeding of most purees and thin liquid. called sister to update about the swallow eval, unfortunalely no one answered Waiting for placement for hospice Might consider to change IV keprra to [place] if pt unable to swallow to help him with placement since no hospice facility will accept him with the IV Keppra Will continue the IV keppra inpatient, plan to transition to ativan on discharge Admission and Anticipated Discharge Date Admission Date: May 29, 2021 Subjective Pt was seen and examined for follow up on comfort care only Lying in bed and seems comfortable Sister brought to our attention that patient was on methadone Pt said that his pain he is about 7 now Denies any chest pain, palpitation and SOB Review of Systems Review of Systems: All systems reviewed & are unremarkable except as noted in Subjective Physical Exam Physical Exam: General: No acute distress, speak a few words in soft voice, HEENT:eyes open, pupils reactive Neck: Neck collar Chest: Fair breath sounds anteriorly CVS: Regular, normal heart sounds, no murmur Abdomen: Soft, not distended, normal bowel sounds Neuro: able to follow minimal command and comprehend, eyes open, weakness in L upper extremity Extremities: No edema or rash.
[2021-06-05] MEDS: MoRPHine SULFATE 5 MG/0.25 ML UDP PO SCH (20:49)
[2021-06-06] MEDS: MoRPHine SULFATE 5 MG/0.25 ML UDP PO SCH ×7 (00:17→22:59)
[2021-06-06] MEDS: levETIRAcetam 1,000 MG in 0.9 % SODIUM CHLORIDE 100 ML IV SCH ×2 (10:59→23:01)
[2021-06-06] MEDS: MoRPHine SULFATE 4 MG/ML 1 ML CARP\\VIAL IV PRN ×2 (17:08→22:51)
--- NOTE | 2021-06-06 23:54 | Hospitalist Progress Note ---
Date of Service June 06, 2021 Assessment & Plan (1) Metabolic encephalopathy: (2) CAD (coronary artery disease): (3) Elevated troponin I level: (4) Elevated LFTs: (5) Carotid stenosis: (6) H/O neck surgery: (7) Chronic pain: (8) DVT prophylaxis: Plan: Multiple embolic stroke MRI brain showedDiffuse ischemic infarcts present bilaterally, right greater than left. Neuro on board -prognosis for any type of quality of life remains poor Palliative team on board - discussed with family regarding goals of care and opted for comfort measure status given his extensive embolic stroke and less chance of meaningful recovery. Comfort measures placed by palliative- all meds will be discontinued except for Keppra which will be continued to prevent recurrent seizure given his extensive embolic stroke. Speech consulted- Aspirated during swallow eval with ice chips, water, ice cream. Speech recommended comfort feeding of most purees and thin liquid. called sister to update about the swallow eval, unfortunalely no one answered Waiting for placement for hospice Might consider to change IV keprra to [place] if pt unable to swallow to help him with placement since no hospice facility will accept him with the IV Keppra Will continue the IV keppra inpatient, plan to transition to ativan on discharge Will discuss with sister for possible to start on diet since pt would like to eat or drink Clinically improves Admission and Anticipated Discharge Date Admission Date: May 29, 2021 Subjective Pt was seen and examined for follow up on comfort care only Lying in bed and seems comfortable He said steph his pain his better He more awake and alert today He is able to lift the left arm Denies any chest pain, palpitation and SOB Review of Systems Review of Systems: All systems reviewed & are unremarkable except as noted in Subjective Physical Exam Physical Exam: General: No acute distress, speak a few words in soft voice, HEENT:eyes open, pupils reactive Neck: Neck collar Chest: Fair breath sounds anteriorly CVS: Regular, normal heart sounds, no murmur Abdomen: Soft, not distended, normal bowel sounds Neuro: able to follow commands, left arm weakness improves and able to lift it Extremities: No edema or rash.
[2021-06-07] MEDS: MoRPHine SULFATE 5 MG/0.25 ML UDP PO SCH ×3 (04:14→11:44)
[2021-06-07] MEDS: levETIRAcetam 1,000 MG in 0.9 % SODIUM CHLORIDE 100 ML IV SCH (11:44)
--- NOTE | 2021-06-07 11:48 | Palliative Care Progress Note ---
Date of Service June 07, 2021 Assessment & Plan (1) Palliative care encounter: Plan: Patient remains on CHAIRMAN EMERITUS. Discussed discontinuation of Keppra IV and transitioning to Ativan SL for seizure prophylaxis. Pt sister is understanding that her brother likely has a week or so left of his life. Over the weekend, I received a message from one of the RN's stating that his sister advised that he has been taking routine Methadone. Discussed with the hospitalist, that scheduling his Roxanol would be beneficial for him. Confirmed that he would not want any life prolonging measures taken, including tube feeding, etc. Reviewed his AD with the patients sister. He was awake enough to take sips of water. We discussed overall risk vs benefit of liquids/eating. She is understanding of what permissive aspiration entails. Her mother is at [facility] and the plan is for him to be admitted there this afternoon. Discussed that if his stroke resolution improves grateful, could consider more aggressive treatment if they wish . Thanks for involving palliative medicine with this patient. (2) AMS (altered mental status): (3) Stroke: (4) POLST (Physician Orders for Life-Sustaining Treatment): Admission and Anticipated Discharge Date Admission Date: May 29, 2021 Subjective Pt remains on CHAIRMAN EMERITUS Pt more arousable today, answered a few simple questions. Pt stated he was having pain in his abdomen. Pt sister, Bell, at his bedside. See A/P for further details. Review of Systems Review of Systems: [facility] System Assessment Scale: Pain by obs: 1/3 SOB by obs: 1/3 Palliative Performance Scale: 20% Physical Exam Constitutional: + ill appearing and + frail appearing ENMT: Mouth: + dry oral mucous membranes Respiratory: normal respiratory effort Auscultation: + diminished lung sounds Cardiovascular: Rate/Rhythm: regular rate and regular rhythm Extremities: normal capillary refill; no pedal edema Gastrointestinal (Abdomen): Inspection/Auscultation: abdomen normal to inspection Skin: + pallor Psychiatric: Orientation: alert, oriented to person and cooperative Insight: + limited insight Judgement: + limited judgement PG Care Time/CCT Total # of Minutes Spent Total Time Spent with Patient: Total time spent is greater than 50% in coordination of care (as documented) at patient's floor/unit and/or counseling patient: 35 minutes Coding Level of Care Code 22613 Subseq Hosp Care Lvl 3 Diagnoses Palliative care encounter Z51.5 AMS (altered mental status) R41.82 Altered mental status type: unspecified Stroke I63.9 POLST (Physician Orders for Life-Sustaining Treatment) Z78.9 Time Spent (min) 35 (1) AMS (altered mental status) Altered mental status type: unspecified Qualified Code(s): R41.82 - Altered mental status, unspecified
--- NOTE | 2021-06-07 13:54 | Discharge Summary ---
Date of Service June 07, 2021 Admission HPI Per Admitting Provider 70 year old male with PMH CAD, mouth cancer s/p chemo and radiation, chronic pain on methadone, HTN, HLD, hypothyroidism, and other problems below who presents to the ED for evaluation of altered mental status. Due to patient's current mental state, history is unobtainable from him. History obtained from previous hospitalization and ED documentation. Patient recently admitted to [facility] 05/04 through 05/06 for elective ACDF C4-C5 by Dr. Allen on 05/04. Spoke with patient's draftsperson, Freddie, over the telephone. He states that he is a friend of the patient's and checks in on him frequently. Freddie states that the patient has not been himself since returning home from the hospital. He reports that he has been having episodes of hallucinations and confusion. States that the patient was admitted to [facility] last weekend for UTI. He was discharged home this previous Monday. Freddie also states the patient has history of chronic alcohol use. He is unsure of how much the patient is drinking however states that he believes that patient has not had a drink since 05/20. Patient sister flew in from [place] to help take care of the patient. She reportedly found him down on the ground this morning. EMS was called. While in route to the ED, EMS reported seizure-like activity. Patient received Ativan 2 mg IV. In the ED, patient's vitals are stable however he remains only responsive to painful stimuli. He does not follow commands. Labs show WBC 26K, initial lactate 7.2, AST 197, ALT 178, alk phos 271, troponin I 54, procalcitonin 1.29. EKG without acute ST changes. Head CT and head and neck CTAs unremarkable for acute findings. Patient was given IV ceftriaxone, IV Keppra 1 g, magnesium replacement, IVF. Admission Exam Per Admitting Provider Constitutional: + ill appearing and + thin; no acute dis tress Eyes: PERRL, conjunctivae normal, anicteric sclerae ENMT: external ear and nose normal, oropharynx normal Respiratory: normal respiratory effort, lungs clear to auscultation Cardiovascular: Rate/Rhythm: regular rhythm and + tachycardic Vessels: normal peripheral pulses Extremities: no edema Gastrointestinal (Abdomen): normal bowel sounds, soft, nontender, no hepatosplenomegaly Musculoskeletal: S/p recent neck surgery, anterior surgical incision CDI, cervical collar in place Skin: no rashes, warm and dry Scattered ecchymosis in various stages of healing Neurologic: Responsive only to painful stimuli, does not follow commands, no purposeful movement Psychiatric: Orientation: + not alert Principal Diagnosis Diffuse ischemic infarct Metabolic encephalopathy: CAD (coronary artery disease): Elevated troponin I level: Elevated LFTs: Carotid stenosis: H/O neck surgery: Chronic pain: Discharge Exam General: No acute distress, speak a few words in soft voice, HEENT:eyes open, pupils reactive Neck: Neck collar Chest: Fair breath sounds anteriorly CVS: Regular, normal heart sounds, no murmur Abdomen: Soft, not distended, normal bowel sounds Neuro: able to follow commands, left arm weakness improves and able to lift it Extremities: No edema or rash. Discharge Data Allergies Allergy/AdvReac Type Severity Reaction Status Date / Time No Known Allergies Allergy Verified 05/29/21 14:40 Consultations 05/29/21 12:49 ED Decision to Admit Stat 05/29/21 14:16 Consult Gastroenterology Routine Consult General Surgery Routine 05/29/21 14:43 Consult [employer] Routine 05/29/21 15:58 Consult Cardiology Routine 05/29/21 17:33 Consult Neurology Stat 05/31/21 07:38 Consult Palliative Care Routine Ordered Studies 05/29/21 10:50 CT cervical spine wo con Stat CT head/brain wo con Stat 05/29/21 10:58 CT angio head w con Stat CT angio neck with con Stat 05/29/21 12:48 CT abd pelvis wo con Stat 05/29/21 14:43 MR brain seizure wo/w con Urgent 05/29/21 17:[address] cervical spine wo con CLINICAL HISTORY: ams, seizure, ?fall, recent surgery COMPARISON STUDY: No previous studies for comparison. CT DOSE: TECHNIQUE: Standard CT of the Cervical Spine was performed without IV contrast. A dose lowering technique was utilized adhering to the principles of ALARA. FINDINGS: Endotracheal tube is at the C2 level and should be further advanced into the trachea. Bones: The bones are osteopenic. There is an exaggerated cervical lordosis. The patient is status post anterior plate and screw fixation at C4-5. Disc spacers in place. There is no evidence for an acute fracture or malalignment. There is evidence for old wedge deformity of C7. The heights of the remaining cervical vertebral bodies are maintained. The vertebral bodies are in anatomic alignment. The odontoid is intact. Degenerative changes are seen at the atlantoaxial articulation. Disc spaces: Moderate to marked disc space narrowing is seen at C3/4 and C5-6, disc space levels above and below the spinal fusion. Apophyseal joints: Degenerative apophyseal joint disease is also present bilaterally. Soft tissues: The prevertebral soft tissues are within normal limits. IMPRESSION: 1. Tip of endotracheal tube at C2 and should be further advanced into the trachea. 2. Osteopenia with old compression fracture of C7. 3. Degenerative disc and degenerative joint disease. 4. Previous internal fixation. ACT 112: Negative or not required by law. Electronically signed by: Chapito Ruano M.D. 05/29/2021 11:44 AM Dictated:05/29/21 1139 Transcribed: 05/29/21 113 XR chest 1V portable CLINICAL HISTORY: ams. Evaluate cardiopulmonary status COMPARISON STUDY: 03/04/2021 TECHNIQUE: 1 view of the chest FINDINGS: Single frontal view of the chest demonstrates the cardiomediastinal silhouette to be within normal limits. There is a decreased inspiratory effort with elevation of the hemidiaphragms and crowding of the bronchovascular markings at the lung bases and centrally. The lungs are clear of alveolar opacities. There is no evidence for pleural effusion. There is no evidence for vascular congestion. There is no acute osseous pathology. IMPRESSION: 1. There is a decreased inspiratory effort with otherwise no acute chest disease. ACT 112: Negative or not required by law. Electronically signed by: Chapito Ruano M.D. 05/29/2021 12:26 PM Dictated:05/29/21 1225 Transcribed: 05/29/[address] head/brain wo con CLINICAL HISTORY: ams, seizure, ?fall COMPARISON STUDY: No previous studies for comparison. CT DOSE: TECHNIQUE: Standard CT of the Brain was performed without IV contrast. A dose lowering technique was utilized adhering to the principles of ALARA. FINDINGS: Extraaxial space: There is no evidence for subdural hematoma. There are no extra-axial fluid collections. Ventricles and cisterns: The ventricles are mildly dilated bilaterally. There is no evidence for midline shift or mass effect. Parenchyma: There is no subarachnoid or intraparenchymal hemorrhage. There is no evidence for an acute infarct or cerebral edema. There is mild cerebral cortical atrophy and decreased attenuation in the periventricular white matter representing remote small vessel disease. There are no gross mass lesions. Osseous structures: There is no evidence for an acute fracture. The visualized paranasal sinuses are clear. The mastoid air cells are clear bilaterally. Soft tissues: There is no evidence for focal soft tissue swelling. The patient is status post intubation. IMPRESSION: 1. No acute intracerebral pathology. 2. Cerebral cortical atrophy and remote small vessel disease. ACT 112: Negative or not required by law. Electronically signed by: Chapito Rauno M.D. 05/29/2021 11:39 AM Dictated:05/29/21 1133 Transcribed: 05/29/[address] angio head w con CLINICAL HISTORY: ams, seizure COMPARISON STUDY: CT brain without contrast from 05/29/2021 CT DOSE: 2207.29 mGy.cm TECHNIQUE: CT Angio of the brain was performed.followed by image post processing with coronal, and sagittal MIP reformats. Contrast Volume: Optiray 320, 120 ml FINDINGS: Vascular findings: There is normal enhancement within the internal carotid arteries bilaterally. There is normal enhancement noted within the anterior, middle and posterior cerebral arteries. Nonvascular findings: There is mild cerebral cortical atrophy and decreased atte nuation in the periventricular white matter representing remote small vessel disease. There is no evidence for an acute infarct or cerebral edema. IMPRESSION: Essentially negative CT angiogram of the brain with contrast. ACT 112: Negative or not required by law. Electronically signed by: Chapito Ruano M.D. 05/29/2021 11:47 AM Dictated:05/29/21 1144 Transcribed: 05/29/[address] angio neck with con CLINICAL HISTORY: ams, seizure COMPARISON STUDY: No previous studies for comparison. CT DOSE: TECHNIQUE: CT Angio of the neck was performed.followed by image post processing with coronal, and sagittal MIP reformats.. Stenosis assessment by NASCET criteria. Contrast Volume: Optiray 320, 120 ml FINDINGS: Vascular findings: Right common carotid artery: There is a large calcified and noncalcified plaque at the carotid bulb with evidence for 80-90% stenosis present. Right internal carotid artery: The large thrombus extends into the origin of the right internal carotid artery with 80-90% stenosis present as well.. Right vertebral artery: Patent without significant stenosis. Left common carotid artery: There is a large calcified and noncalcified plaque at the carotid bulb with evidence for 70-80% stenosis present. Left internal carotid artery: The large thrombus extends into the origin of the left internal carotid artery with approximately 80-90% stenosis present as well.. Left vertebral artery: Patent without significant stenosis. Nonvascular findings: The parotid and submandibular salivary glands appear normal. There is no enlarged cervical adenopathy noted. The airway appears patent. The thyroid gland appears within normal limits. The lung apices appear within normal limits.There is again an endotracheal tube in place with its tip at the C2 level. It should be further advanced. Impression: 1. Large calcified and noncalcified plaques involving the carotid bulbs and internal carotid arteries bilaterally with 80-90% stenosis of the proximal internal carotid arteries bilaterally. 2. Endotracheal tube ending at the C2 level which should be further advanced into the trachea. ACT 112: Negative or not required by law. Electronically signed by: Chapito Ruano M.D. 05/29/2021 11:54 AM Dictated:05/29/21 1147 Transcribed: 05/29/[address] abd pelvis wo con CLINICAL HISTORY: elev lfts, ams,elev lactase. Patient found unresponsive COMPARISON STUDY: No previous studies for comparison. CT DOSE: 299.46 mGy.cm TECHNIQUE: Standard CT of the Abdomen and Pelvis was performed without IV contrast. The patient did not receive oral contrast. A dose lowering technique was utilized adhering to the principles of ALARA. FINDINGS: Lung base: The lung bases are clear. Cardiac calcification is present. Abdominal cavity: There is no evidence for abdominal mass, adenopathy or ascites. Liver: The liver is homogeneous in attenuation on these limited noncontrast images.. Spleen: The spleen is homogeneous in attenuation on these limited noncontrast images. Pancreas: The pancreas is homogeneous in attenuation on these limited noncontrast images. Gall Bladder: The gallbladder is distended with increased attenuation debris lung dependent portion of gallbladder characteristic of sludge. Small stones cannot be excluded. Adrenal glands: The adrenal glands are normal in size and attenuation on these limited noncontrast images. Kidneys: The kidneys are homogeneous in attenuation on these limited noncontrast images. Is evidence of bilateral nonobstructing renal calculi. No hydronephrosis identified. 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 Bowel: The bowel loops are normally placed within the abdomen and pelvis without evidence for dilatation or obstruction. There is mild to moderate fecal impaction of the rectosigmoid colon. There is no obstruction of the more proximal colonic loops. There are no inflammatory changes present. There is no evidence for free air. Bladder: Calix catheter is in place. : There is no evidence for pelvic mass or adenopathy. Vasculature: There is no evidence for focal aneurysmal dilatation of the abdominal aorta. Atherosclerotic calcification is present. Osseous structures: There is no acute osseous pathology. Degenerative changes are seen within the spine. IMPRESSION: 1. Mild to moderate fecal impaction in the rectosigmoid colon with no evidence for obstruction of the more proximal colon. 2. Distended gallbladder with evidence for sludge along the dependent portion of the gallbladder. 3. No other evidence for acute intra-abdominal pelvic abnormality. 4. Additional nonacute findings are delineated above. ACT 112: Negative or not required by law. Electronically signed by: Chapito Ruano M.D. 05/29/2021 1:49 PM Dictated:05/29/21 134 Transcribed: 05/29/211341 MR brain seizure wo/w con CLINICAL HISTORY: seizure. Patient found unresponsive COMPARISON STUDY: CT brain from 05/29/2021 TECHNIQUE: Multiplanar multisequence images of the brain were performed before and after Gadavist, 4 mL of IV contrast. Diffusion weighted imaging and ADC mapping was also performed. FINDINGS: Extra-axial space: There is no evidence for a subdural hematoma, There are no extra-axial fluid collections. Ventricles and cisterns: The ventricles are mildly dilated bilaterally. There is no evidence for midline shift or mass effect. Parenchyma: On noncontrast images, there are numerous acute bilateral infarcts characteristic of showering of emboli. Acute diffusion abnormalities are noted within the distribution of the right middle and right posterior cerebral arteries within the parietal and occipital lobes on the right. There is also abnormal diffusion weighted imaging within the right frontal lobe. There are bilateral basal ganglia infarcts. There are also left occipital and posterior parietal infarcts. There is normal jamil-white differentiation. The sulci and gyri appear normal without effacement. The midline structures are unremarkable. The posterior fossa structures appear normal. On postcontrast images, there is no evidence for enhancing mass lesion. Osseous structures: The paranasal sinuses are well aerated. The mastoid air cells are well aerated. Soft tissues: No focal soft tissue abnormalities are identified. IMPRESSION: 1. Diffuse ischemic infarcts present bilaterally, right greater than left. The findings are most characteristic of showering of emboli. ACT 112: Negative or not required by law. Electronically signed by: Chapito Ruano M.D. 05/29/2021 5:26 PM Dictated:05/29/211717 Transcribed: 05/29/211717 PROCEDURE: XR orbits for MRI CLINICAL HISTORY: Screening for foreign body for MRI. COMPARISON: None. FINDINGS: Plascencia and lateral views reveal no metallic orbital foreign bodies. The paranasal sinuses and the remainder of the facial structures are unremarkable. IMPRESSION: Negative pre-MRI screening orbits. ACT 112: Negative or not required by law. Electronically signed by: Chapito Ruano M.D. 05/29/2021 4:17 PM Dictated:05/29/211616 Transcribed: 05/29/211616 MR MRCP CLINICAL HISTORY: Seizures, unresponsive TECHNIQUE: Multiplanar multisequence MR images were obtained of the abdomen, followed by reconstruction of MRCP imaging. COMPARISON: CT of the abdomen and pelvis from 05/29/2021 FINDINGS: Liver: There is homogeneous signal intensity seen within the liver. No mass lesions are seen. There is no evidence for intrahepatic or duct dilatation. Gallbladder: The gallbladder is distended with sludge and cholelithiasis present. There is no evidence for wall thickening or pericholecystic edema. Spleen: There is homogeneous signal throughout the splenic parenchyma. No mass lesions are seen. Pancreas: The pancreas is homogeneous in signal There is no evidence for a mass lesion. Kidneys: There is homogeneous signal throughout the renal parenchyma bilaterally. Left renal cyst is again seen. Adrenal glands: There is homogeneous signal demonstrated with no gross mass seen. Abdominal cavity: There is no gross bowel dilatation. There is no evidence for ascites or adenopathy. The aorta is normal in caliber. The visualized osseous structures, demonstrate no evidence of abnormal signal intensity. MRCP: The common bile duct is normal in course and caliber. There is no evide nce for dilatation. However, there is evidence for small intraluminal filling defect within its lumen of the common bile duct where it turns. This is suspicious for choledocholithiasis. However, there is no intrahepatic or duct dilatation. The pancreatic duct is normal in course and caliber. IMPRESSION: 1. Distended gallbladder with cholelithiasis. 2. There is evidence for an intraluminal filling defect within the common bile duct where the duct turns. This is suspicious for choledocholithiasis. However, there is no bile duct dilatation present. ACT 112: Negative or not required by law. Electronically signed by: Chapito Ruano M.D. 05/29/2021 6:42 PM Dictated:05/29/211833 Transcribed: 05/29/211833 KUB HISTORY: Status post placement of a feeding tube Coresafe placement COMPARISON: CT abdomen and pelvis 05/29/2021 FINDINGS: Status post placement of a feeding tube, distal tip projected over the gastric fundus. The left lateral abdomen and lower pelvis are excluded from the [id number]. Air-filled loops of large and small bowel are noted. No renal calculi. No ureteral calculi. No pneumoperitoneum or pneumatosis. Degenerative changes of the spine. Bibasilar pulmonary opacities. No fracture. IMPRESSION: 1. Distal tip of feeding tube projects over the gastric fundus. 2. Bibasilar opacities suggest atelectasis versus pneumonitis. ACT 112: Negative or not required by law. The above report was generated using voice recognition software. It may contain grammatical, syntax or spelling errors. Electronically signed by: Matti Thornton M.D. 05/30/2021 10:51 AM Dictated:05/30/218 Transcribed: 05/30/211047 Hospital Course (1) Metabolic encephalopathy: (2) CAD (coronary artery disease): (3) Elevated troponin I level: (4) Elevated LFTs: (5) Carotid stenosis: (6) H/O neck surgery: (7) Chronic pain: (8) DVT prophylaxis: Multiple embolic stroke MRI brain showedDiffuse ischemic infarcts present bilaterally, right greater than left. Neuro on board -prognosis for any type of quality of life remains poor Palliative team on board - discussed with family regarding goals of care and opted for comfort measure status given his extensive embolic stroke and less chance of meaningful recovery. Comfort measures placed by palliative- all meds will be discontinued except for Keppra which will be continued to prevent recurrent seizure given his extensive embolic stroke. Speech consulted- Aspirated during swallow eval with ice chips, water, ice cream. Speech recommended comfort feeding of most purees and thin liquid. called sister to update about the swallow eval, unfortunalely no one answered Waiting for placement for hospice Might consider to change IV keprra to CA if pt unable to swallow to help him with placement since no hospice facility will accept him with the IV Keppra Will continue the IV keppra inpatient, plan to transition to ativan on discharge Will discuss with sister for possible to start on diet since pt would like to eat or drink Clinically improves Total Time Total Time Spent Total Time Spent (In Minutes): 35 minutes Discharge Plan Discharge Items Patient Disposition: Hospice - Medical Facility Reason For Visit: AMS Discharge Diagnosis: (1) Metabolic encephalopathy: (2) CAD (coronary artery disease): (3) Elevated troponin I level: (4) Elevated LFTs: (5) Carotid stenosis: (6) H/O neck surgery: (7) Chronic pain: Activity: As commented below Non-emergency contact: Primary Care Provider Call non-emergency contact if: you have any medication questions Follow-up/Referrals: Los Sheehan D.O. [Primary Care Provider] - Diet: Regular Diet Texture: Pureed (blended smooth) Addtl Attending Provider Instructions: Discharge for hospice Continue aspiration and seizure precaution Continue fall precaution Follow up with the provider at the [facility] Pending Studies at Discharge: No Stand-Alone Forms: My [facility] Skilled Items Patient informed of condition?: Yes DNR: Yes Discharge Level of Care: Skilled Communicable Disease: No Discharge Prognosis: Stable Lines: None Urinary Catheter: Yes Medications and DC Order Prescriptions: New morphine concentrate 100 mg/5 mL (20 mg/mL) Solution 5 mg PO Q4 Qty: 15 RF: 0 levetiracetam [Keppra] 500 mg tablet 500 mg PO BID Qty: 60 RF: 0 levetiracetam [Keppra] 500 mg tablet 500 mg PO BID Qty: 60 RF: 0 lorazepam [Ativan] 0.5 mg tablet 0.5 mg sublingual Q6H PRN (Reason: anxiety/seizure) Qty: 10 RF: 0 Continued atorvastatin [Lipitor] 40 mg Tablet 40 mg PO QAM RF: 0 acetaminophen [Tylenol] 325 mg Tablet 650 mg PO TID RF: 0 levothyroxine 112 mcg tablet 112 mcg PO DAILYBB RF: 0 esomeprazole magnesium 40 mg capsule,delayed release(DR/EC) 40 mg PO DAILY RF: 0 famotidine 20 mg Tablet 20 mg PO DAILY PRN (Reason: Gi Upset) RF: 0 aspirin 81 mg Tablet,Delayed Release (Dr/Ec) 81 mg PO DAILY RF: 0 Changed docusate sodium 100 mg Capsule 100 mg PO BID PRN (Reason: constipation) Qty: 0 RF: 0 Discontinued methadone 10 mg Tablet 10 mg PO BID PRN (Reason: Pain, Severe) RF: 0 gabapentin 800 mg Tablet 800 mg PO TID RF: 0 nortriptyline [Pamelor] 10 mg Capsule 10 mg PO HS RF: 0 cevimeline 30 mg capsule 30 mg PO TID RF: 0 citalopram 20 mg tablet 20 mg PO DAILY RF: 0 Discharge Orders: Discharge Order (Routine); Ordered 06/07/21 Ordered By: Hansel Garcia Admission Data Admit Date/Time: 05/29/21 13:39 Attending Provider: Hansel Garcia Admit Provider: Dilan Garcia Primary Care Provider: Los Sheehan Other Providers: Dilan Garcia ; Sofia Boyd Matthew D. ; Flower Cao ; Richardson Izquierdo ; Flako Kohler ; Candida Begum Other Interventions: Discharge Summary Assessment (RN) Last Done: 06/07/21 13:57
== END 2021-06-07 14:56 | disposition hospice, inpatient (51) | DRG 64 ==
LOC: ED 10:53 → SUATTDRO 13:39 → 1E 13:39 → 3E 06-01 13:49